=== PATIENT | female | born 1955 | race Caucasian/White ===

== ENCOUNTER 2019-09-06 11:00 | Outpatient (RCR) | payer OTHER, SELFPAY ==
--- NOTE | 2019-06-27 12:24 | PTOPEVAL ---
INITIAL PHYSICAL THERAPY EVALUATION and PLAN OF CARE Thank you for referring Mary Reis to [facility]. She will be seen 2x/wk x 4 wks. Please review, sign, date and return this plan of care SUSANA. I agree with and certify that the following plan of care is medically necessary. Referring Physician Date Admitting Provider: Attending Provider: Palma Canela, BEAN ROASTER Referring Provider: *PT Outpatient Evaluation Start: 06/27/19 11:07 Freq: Status: Active Protocol: Document 06/27/19 11:05 LILIAN (Rec: 06/27/19 12:23 LILIAN [id number]) Therapy Assessment Status Assessment Status Assessment Status Evaluation Outpatient Past Medical History Past Medical History Source of Past Medical History Patient Neurological History Hx Neurological Disorders No Significant History Cardiovascular History Hx Hypercholesterolemia Yes Hx Hypertension Yes Respiratory History Hx Respiratory Disorders No Significant History Gastrointestinal History Hx Gastrointestinal Disorders No Significant History Genitourinary History Hx Genitourinary Disorders No Significant History Musculoskeletal History Hx Other Musculoskeletal Disorders Yes: Bilat adhesive capsulitis Evaluation Information Problem Diagnosis cervical radiculopathy Onset end of May Subjective Information Helping older daughter move - Query Text:As Reported By Patient/ packing, moving boxes Moving Family gear shift in car will result in pain, moving arm out to side - difficult to do Will feel pulling sensation felt in neck. Sleeping - unable to get comfortable toss/turns Ice on front on shoulder, ice on back of shoulder Morning - the worse - R arm feels like weight, increase difficulty moving R arm Prior Level of Function Activity Level (Last 3 Months) Hand Dominance Right Medications Home Meds (Include: OTC, RX, Vitamins, CoQ10, vitamin D, lisinopril, Herbals, Dose, Route,and Frequency) gemtibrozil Query Text:Home Med Entries Will No Longer Recall From Past Visits. Home Meds Must Be Re-entered With Each Visit. Home Setting Home Type House,Multiple Levels Environmental Barriers Stairs, Greater than 4 Living Situation With Spouse Mobility Assistive Devices (Used Last 3 None Months) Comments Additional Prior Level of Function likes to stay active, helps Comments out with her parents Pain Assessment Timing
--- NOTE | 2019-07-19 17:12 | PTOPEVAL ---
PHYSICAL THERAPY RE-EVALUATION AND PROGRESS NOTE, UPDATED PLAN OF CARE Thank you for referring Mary Reis to [facility]. She has been seen x 8 visits. Further PT is recommended for further achievement of Misael's goals. Please review, sign, date and return this plan of care SUSANA. I agree with and certify that the following plan of care is medically necessary. Referring Physician Date Admitting Provider: Attending Provider: Palma Canela, DISTRICT PLANT ENGINEER Referring Provider: *PT Outpatient Evaluation Start: 06/27/19 11:07 Freq: Status: Active Protocol: Document 07/19/19 11:05 LILIAN (Rec: 07/19/19 17:12 LILIAN [email or web address]) Therapy Assessment Status Assessment Status Assessment Status Re-evaluation Evaluation Information Problem Subjective Information Misael reports less neck Query Text:As Reported By Patient/ discomfort - occasional strain Family sensation as well as tightness present. Most of her c/o's are at R shoulder/ upper quadrant region. Sleeping is still difficult - unable to maintain comfortable position - but has improved ~ 30%. Able to move gear shift in car now without discomfort, still cautious with using R UE and manuever tea mug like she is acustomed to doing. Pain Assessment Timing of Pain Assessment Timing of Pain Assessment Assessment Pain Scale Pain Scale Used Numeric (1 - 10) Self Report Pain Assessment Right Upper Shoulder(s) Reported Pain Level 2 Lowest Pain Intensity 1 Greatest Pain Intensity 7 Additional Pain Comments neck pain - best 0 worse 4 now 0 Pain Score Pain Score 2: Self Report Upper Extremity Range of Motion Scapular/ Shoulder Range of Motion Right Shoulder Flexion - Active 158 Shoulder Extension - Active 54 Shoulder Abduction - Active 131 Shoulder Medial Rotation - Active 45 Shoulder Medial Rotation - Active R buttock area Query Text:Reach Behind the Back Shoulder Lateral Rotation - Active 60 Shoulder Lateral Rotation - Active C6,7 region Query Text:Reach Behind the Head Scapular/Shoulder Range of Motion ER in neutral - 80 Comments Upper Extremity Muscle Strength Testing Scapular/Shoulder Right Shoulder Flexion Strength 4 Good Shoulder Extension Strength 4+ Good + Shoulder Abduction Strength 4- Good - Shoulder Medial Rotation Strength 4+ Good + Shoulder Lateral Rotation Strength 4 Good Shoulder Strength Comments
--- NOTE | 2019-08-16 16:28 | PTOPEVAL ---
PHYSICAL THERAPY RE-EVALUATION and UPDATED PLAN OF CARE Thank you for referring Mary Reis to [facility]. Continue to follow in PT 2x/wk x 4 wks. Please review, sign, date and return this plan of care SUSANA. I agree with and certify that the following plan of care is medically necessary. Referring Physician Date Admitting Provider: Attending Provider: Palma Canela, AUTOMOBILE SERVICE STATION MANAGER Referring Provider: *PT Outpatient Evaluation Start: 06/27/19 11:07 Freq: Status: Active Protocol: Document 08/16/19 11:07 LILIAN (Rec: 08/16/19 16:28 LILIAN [email or web address]) Therapy Assessment Status Assessment Status Assessment Status Re-evaluation Evaluation Information Problem Subjective Information Misael reports that for the Query Text:As Reported By Patient/ last few days R shoulder/arm Family is feeling heavy. Only able to lie on R side for ~ 10 min. She feels that she tosses and turns throughout the night . She has been able to stay in bed - but this morning - early - she needed to get out of bed and get ice on her shoulder. Protraction motion relieves some of her R shoulder discomfort. Pain Assessment Timing of Pain Assessment Timing of Pain Assessment Assessment Pain Scale Pain Scale Used Numeric (1 - 10) Self Report Pain Assessment Right Upper Shoulder(s) Reported Pain Level 4 Pain Description Heavy Pain Frequency Chronic Lowest Pain Intensity 2 Greatest Pain Intensity 9 Additional Pain Comments only able to lie on R side for ~ 10 min before has to reposition Pain Score Pain Score 4: Self Report Upper Extremity Range of Motion Scapular/ Shoulder Range of Motion Right Shoulder Flexion - Active 145 Shoulder Extension - Active 50 Shoulder Abduction - Active 105 Shoulder Medial Rotation - Active 37 Shoulder Medial Rotation - Active R buttock area Query Text:Reach Behind the Back Shoulder Lateral Rotation - Active 65 Shoulder Lateral Rotation - Active C6,7 region Query Text:Reach Behind the Head Scapular/Shoulder Range of Motion ER in neutral - 60 Comments Palpation Assessment Palpation Palpation Further increase with cervical spine P-A mobility - level of least motion - T1,C7,6 R upper quadrant - mild
--- NOTE | 2019-09-06 13:04 | PTOPEVAL ---
Thank you for referring Mary Reis to [facility]. Please review, sign, date and return this plan of care SUSANA. I agree with and certify that the following plan of care is medically necessary. Referring Physician Date Admitting Provider: Attending Provider: Palma Canela, BLASTER HELPER Referring Provider: *PT Outpatient Evaluation Start: 06/27/19 11:07 Freq: Status: Active Protocol: Document 09/06/19 10:55 LILIAN (Rec: 09/06/19 13:04 LILIAN [email or web address]) Therapy Assessment Status Assessment Status Assessment Status Discharge Evaluation Information Problem Subjective Information Misael reports that sleeping Query Text:As Reported By Patient/ has been difficult again - Family unable to stay in bed past 3 a .m. - needs to get up and put ice on shoulders. Lately - not having as much heaviness with R shoulder - but will still have that sensation. Will get a catching sensation at times. Still unable to lie on either side for any length of time - especially on the R side. Pain Assessment Timing of Pain Assessment Timing of Pain Assessment Assessment Pain Scale Pain Scale Used Numeric (1 - 10) Self Report Pain Assessment Right Upper Shoulder(s) Reported Pain Level 1 Lowest Pain Intensity 1 Greatest Pain Intensity 8 Pain Score Pain Score 1: Self Report Upper Extremity Range of Motion Scapular/ Shoulder Range of Motion Right Shoulder Flexion - Active 130 Shoulder Extension - Active 50 Shoulder Abduction - Active 108 Shoulder Medial Rotation - Active 25 Shoulder Medial Rotation - Active R buttock area Query Text:Reach Behind the Back Shoulder Lateral Rotation - Active 65 Shoulder Lateral Rotation - Active C6,7 region Query Text:Reach Behind the Head Scapular/Shoulder Range of Motion ER in neutral - 74 Comments Palpation Assessment Palpation Palpation R g-h jt tightness remains - posterior and inferior capsule - harder end feel with IR this date, softer end feel with ER, increase pectoralis tightness remains limiting abduction - in saggital plane Continues to gain with cervical segmental mobility passively as well as cervical
--- NOTE | 2019-09-06 13:06 | PTOPEVAL ---
PHYSICAL THERAPY DISCHARGE SUMMARY Thank you for referring Mary Reis to [facility]. Misael has been seen x 19 visits in PT. Her original cervical spine symptoms/dysfunction have been resolved, but R g-h jt dysfunction continues. Referring Misael back to PCP for further diagnostic work up and possible referral to Ortho MD. I agree with Misael's d/c from PT at this time. Referring Physician Date Admitting Provider: Attending Provider: Palma Canela, MARY Referring Provider: *PT Outpatient Evaluation Start: 06/27/19 11:07 Freq: Status: Active Protocol: Document 09/06/19 10:55 LILIAN (Rec: 09/06/19 13:04 LILIAN [email or web address]) Therapy Assessment Status Assessment Status Assessment Status Discharge Evaluation Information Problem Subjective Information Misael reports that sleeping Query Text:As Reported By Patient/ has been difficult again - Family unable to stay in bed past 3 a .m. - needs to get up and put ice on shoulders. Lately - not having as much heaviness with R shoulder - but will still have that sensation. Will get a catching sensation at times. Still unable to lie on either side for any length of time - especially on the R side. Pain Assessment Timing of Pain Assessment Timing of Pain Assessment Assessment Pain Scale Pain Scale Used Numeric (1 - 10) Self Report Pain Assessment Right Upper Shoulder(s) Reported Pain Level 1 Lowest Pain Intensity 1 Greatest Pain Intensity 8 Pain Score Pain Score 1: Self Report Upper Extremity Range of Motion Scapular/ Shoulder Range of Motion Right Shoulder Flexion - Active 130 Shoulder Extension - Active 50 Shoulder Abduction - Active 108 Shoulder Medial Rotation - Active 25 Shoulder Medial Rotation - Active R buttock area Query Text:Reach Behind the Back Shoulder Lateral Rotation - Active 65 Shoulder Lateral Rotation - Active C6,7 region Query Text:Reach Behind the Head Scapular/Shoulder Range of Motion ER in neutral - 74 Comments Palpation Assessment Palpation Palpation R g-h jt tightness remains - posterior and inferior capsule - harder end feel with IR this date, softer end feel with ER, increase pectoralis tightness remains limiting abduction - in saggital plane
== END 2019-09-07 08:27 | disposition home or self-care (01) ==
LOC: ANHPT 11:00
PROVIDERS: PCP Nurse Practitioner Family; Visit Provider Nurse Practitioner Family
DX: M54.12 Radiculopathy, cervical region (principal)
CPT/HCPCS: 97035; 97110; 97140; 97162

== ENCOUNTER 2019-11-19 09:52 | Emergency (ER) | payer MEDICARE, SELFPAY ==
--- NOTE | 2019-11-19 10:13 | ED.DIZZY ---
HPI - Dizziness General Chief Complaint: Dizziness Stated Complaint: dizziness Time Seen by Provider: 11/19/19 10:33 Source: patient and RN notes reviewed Mode of arrival: ambulatory Limitations: no limitations History of Present Illness HPI Narrative: 64-year-old female presents with concern for dizziness. Reports she will experience a period of dizziness when she moves from a sitting to a standing position. She denies room spinning. She denies syncope or near syncope. She denies headache, nausea, vomiting. Reports postnasal drainage, nasal congestion. Reports last week she had abdominal pain. MD elicited complaint: dizziness Related Data Home Medications Medication Instructions Recorded Confirmed gemfibrozil mg 11/19/19 lisinopril 11/19/19 Allergies Allergy/AdvReac Type Severity Reaction Status Date / Time KNDA Allergy Mild Uncoded 07/30/03 16:49 Review of Systems Review of Systems: Narrative: CONSTITUTIONAL: Denies malaise, chills, sweats, or fever. EYES: Denies visual changes, redness, or discharge. ENT: Reports rhinorrhea, congestion. Denies sinus pain, otalgia or sore throat. CARDIOVASCULAR: Denies chest pain, palpitations, or edema. RESPIRATORY: Denies cough or dyspnea. GASTROINTESTINAL: Denies current abdominal pain, nausea, vomiting, diarrhea, bloody, or mucous stools. GENITOURINARY: Denies dysuria or hematuria. SKIN: Denies rash or itching. MUSCULOSKELETAL: Denies back pain, joint pain, or myalgia. NEUROLOGIC: Denies numbness, weakness, or headache. Reports dizziness PSYCHIATRIC: Denies anxiety or depression. All systems reviewed & are unremarkable except as noted in HPI and below PMFSH Social History Social History Smoking end date: 03/21/95 Alcohol intake: current Comments At time of signature, agree with nursing past medical, surgical, social and family history. There is no relevant family history pertinent to the presenting complaint Exam Narrative: Exam Narrative: GENERAL: Well-appearing, well-nourished, and in no acute distress. HEAD: Normocephalic, atraumatic. EYES: PERRLA, conjunctivae clear, and EOMI. No nystagmus. ENT: Nares clear, turbinates erythematous, clear drainage. Mucous membranes moist. Right TM pearly rankin with sharp light reflex, left TM dull with effusion; no tragal tenderness. Oropharynx without erythema or lesions. Tonsils not enlarged and without exudate. NECK: Supple. No lymphadenopathy. No jugular venous distension, thyromegaly, or carotid bruits. Carotids were easily palpable bilaterally. CHEST: No respiratory distress. Clear to auscultation. No bony deformities, no asymmetry. Speaks in full sentences. HEART: Regular rate and rhythm. No murmur heard. Normal peripheral pulses. EXTREMITIES: Normal range of motion. No edema. Normal strength and sensation. SKIN: Warm, dry, no rash. NEURO: Alert and oriented x3. No focal deficits. Cranial nerves II through XII grossly intact. Rothbury-Hallpike test negative for vertigo PSYCH: Normal mood and affect Course Course Emergency Course: Patient is aware of diagnosis, understands and agrees to treatment plan. Anticipatory guidance given. Patient agrees to follow-up as directed and is aware of reasons to seek care at the emergency department. Portions of this record may have been created with voice recognition software Reevaluation(s) Reevaluation #1: Discussed with patient findings of orthostatic hypotension and offered further evaluation in the emergency department. Patient reports at this time she wishes to follow-up with her primary care doctor on Tuesday and does not wish to go to the emergency room. Patient understands reasons to seek care in the emergency department if symptoms change before she can see her primary care doctor. Date: 11/19/19 Time: 11:05 Vital Signs Vital signs: Vital Signs Temperature 99.4 F 11/19/19 10:21 Pulse Rate 95 11/19/19 10:21 Respiratory Rate 16 11/19/19 10:21 Blood Pressure 10
[2019-11-19 10:21] VITALS: BP 108/69; PULSE 95; RESP 16; TEMP 37.4; O2SAT 98
[2019-11-19 10:42] VITALS: BP 111/73; PULSE 86
[2019-11-19 10:44] VITALS: BP 107/71; PULSE 100
[2019-11-19 10:46] VITALS: BP 103/82; PULSE 103
== END 2019-11-19 11:11 | disposition home or self-care (01) ==
PROVIDERS: Emergency Provider Nurse Practitioner
DX: I95.1 Orthostatic hypotension (principal); E78.00 Pure hypercholesterolemia, unspecified; I10 Essential (primary) hypertension
CPT/HCPCS: 99213; G0463

== ENCOUNTER 2021-02-24 08:34 | Emergency (ER) | payer MEDICARE, SELFPAY ==
[2021-02-24] VITALS (32 sets, daily range): BP systolic 105–140; BP diastolic 66–94; PULSE 58–96; RESP 12–21; TEMP 36.3; O2SAT 96–100
--- NOTE | ~2021-02-24 | CT_ITS ---
EXAMINATION: CT brain wo con DATE: 02/24/2021 11:44 INDICATION: Altered mental status TECHNIQUE: Computed tomography (CT) of the head was performed without intravenous contrast. Sagittal and coronal reconstructions were performed. The mA was adjusted according to patient size. Iterative reconstruction technique was employed. The dose-length product was 605.33 mGy-cm. COMPARISON: None FINDINGS: No acute intracranial hemorrhage, acute infarction or abnormal extra axial fluid collection. Ventricl es are normal and symmetric. No mass/mass effect. Mild mucosal thickening in the right maxillary and left ethmoid sinuses. The orbits and mastoid air cells are normal. IMPRESSION: 1. No acute intracranial process. Reviewed, dictated and finalized at location B. OND MILL OPERATOR
--- NOTE | 2021-02-24 09:03 | ECG_ITS ---
Measurements Intervals [place] Rate: 69 P: 36 AR: 208 QRS: -34 QRSD: 114 T: -28 QT: 400 QTc: 429 Interpretive Statements SINUS RHYTHM LEFT AXIS DEVIATION INTRAVENTRICULAR CONDUCTION DELAY LEFT VENTRICULAR HYPERTROPHY AND ST-T CHANGE CANNOT RULE OUT SEPTAL INFARCT, AGE INDETERMINATE BORDERLINE ST-T WAVE ABNORMALITY- ANTEROLAT/INF LEADS BASELINE ARTIFACT- I, II, III, AVR, AVL, AVF, V1, V3-V6 ABNORMAL ECG Electronically Signed On 02-24-2021 9:36:45 REGULATORY AFFAIRS DIRECTOR by Paul Bundy D.O.
[2021-02-24 09:27] LABS: Basophils Percent Auto 0.6 % (0.2-1.2); Eosinophils Absolute Auto 0.1 K/mm3 (0-0.3); Eosinophils Percent Auto 2.6 % (0-4.4); Hematocrit 41.7 % (37.0-47.0); Hemoglobin 14.5 g/dL (12.0-15.0); Immature Granulocyte Absolute 0.01 K/mm3 (0.00-0.031); Immature Granulocyte Percent A 0.3 % (0-0.5); Lymphocytes Percent Auto 40.7 % (18.3-44.2); Mean Corpuscular HGB Conc 34.8 g/dl (32-36); Mean Corpuscular Hemoglobin 31.5 pg (26-34); Mean Corpuscular Volume 90.7 fl (80-100); Mean Platelet Volume 9.8 fl (7.4-10.4); Monocytes Absolute Auto 0.4 K/mm3 (0.1-0.6); Monocytes Percent Auto 10.2 % (2.6-8.5); Neutrophils Absolute Auto 1.6 K/mm3 (1.3-6.7); Neutrophils Percent Auto 45.6 % (45.5-73.1); Platelet Count Result 163 k/mm3 (150-375); Red Cell Distribution Width 12.6 % (11.5-14.5); White Blood Count 3.4 K/mm3 (4.5-10.0)
[2021-02-24 09:39] LABS: Alanine Aminotransferase 59 U/L (4-35); Albumin Level 4.8 g/dL (3.5-5.1); Alkaline Phosphatase 114 U/L (38-126); Anion Gap 10 mmol/L (8-16); Aspartate Amino Transferase 45 U/L (14-36); Bilirubin,Total 0.7 mg/dL (0.2-1.3); Blood Urea Nitrogen 14 mg/dL (7-17); Calcium 9.3 mg/dL (8.4-10.2); Carbon Dioxide 24 mmol/L (22-30); Chloride 102 mmol/L (98-107); Estimated CRCL calculation 105 ml/min; Estimated Glomerular Filt Rate > 60; Glucose 101 mg/dL (65-110); Potassium 3.8 mmol/L (3.4-5.0); Sodium 136 mmol/L (137-145)
[2021-02-24 09:58] LABS: Atypical Lymphocytes Present; Platelet Estimate Adequate (Adequate)
--- NOTE | 2021-02-24 11:18 | ED.DIZZY ---
HPI - Dizziness General Chief Complaint: Dizziness Stated Complaint: very dizzness Time Seen by Provider: 02/24/21 09:17 Source: patient Mode of arrival: ambulatory Limitations: no limitations History of Present Illness HPI Narrative: 65-year-old female She is here because of a approximately 3-day history of feeling kind of dizzy and/or fuzzy and having a little trouble recalling things, although right now she feels perfectly fine The last time she experienced this was when she woke up at 3 AM this morning She reports she had a routine visit with her PCP within the last couple weeks and there was no problems found at that time She does not have anything else going on and no cough no shortness of breath no nausea or vomiting no urinary symptoms Her was recently hospitalized at [facility] to get a pacemaker and she mentions that this has been stressful and she has been having some anxieties and maybe a little bit of sleep problems due to that Related Data Home Medications Medication Instructions Recorded Confirmed gemfibrozil mg 11/19/19 lisinopril PO 11/19/19 donepezil 10 mg PO HS 02/24/21 furosemide 40 mg PO DAILY 02/24/21 memantine 5 mg PO BID 02/24/21 mirtazapine 15 mg PO DAILY 02/24/21 ondansetron PO 02/24/21 sertraline 50 mg PO DAILY 02/24/21 spironolactone 50 mg PO DAILY 02/24/21 Allergies Allergy/AdvReac Type Severity Reaction Status Date / Time No Known Allergies Allergy Verified 02/24/21 09:13 Review of Systems Review of Systems: All systems reviewed & are unremarkable except as noted in HPI and below Constitutional: Constitutional: Reports no additional constitutional complaints, Denies chills, Reports fatigue, Denies fever(s) and Denies headache(s) Eyes: Eyes: Reports no additional eye complaints and Denies change in vision ENT: Denies headache(s) and Denies sore throat Cardiovascular: Cardiovascular: Denies chest pain and Denies dyspnea Respiratory: Respiratory: Denies cough and Denies dyspnea Gastrointestinal: Gastrointestinal: Denies abdominal pain, Denies diarrhea and Denies vomiting Genitourinary: Genitourinary: Denies urinary frequency and Denies dysuria Musculoskeletal: Musculoskeletal: Denies deformity, Denies arthralgias, Denies joint swelling and Denies numbness Integumentary/Breasts: Skin/Breast: Denies rash and Denies wounds Neurologic: Reports dizziness, Denies headache(s), Denies focal weakness and Denies numbness Psychiatric: Psychiatric: Reports no additional psychiatric complaints and Reports anxiety Endocrine: Endocrine: Reports no additional endocrine complaints Hematologic/Lymphatic: Hematologic/Lymphatic: Reports no additional hematologic/lymphatic complaints Allergic/Immunologic: Allergic/Immunologic: Reports no additional allergic/immunologic complaints [facility] Social History Social History Smoking end date: 03/21/95 Alcohol intake: current Exam Const: General: cooperative, healthy appearing, no acute distress and alert Orientation/consciousness: patient oriented x3 (alert) HENMT: Head: normal to inspection, normocephalic, atraumatic, no contusions and no hematomas Ears: external ears normal General nose exam: no epistaxis Eyes: Conjunctivae: conjunctivae normal Pupils: Equal, round and reactive pupils present EOM: EOMs intact bilaterally Neck: Neck: normal visual inspection, supple and no JVD Resp: Effort & Inspection: normal respiratory effort and not labored Auscultation: clear to auscultation bilaterally, no rales, no rhonchi, no wheezes and other (BS =) Cardio: Rate: regular rate Rhythm: regular rhythm Heart sounds: no murmurs GI: GI Palp: Yes Soft to palpation and No Tenderness to palpation present (GI) Skin: General skin exam: normal color and no rashes or lesions noted Neuro: General: patient oriented x3 (alert) and moves all extremities Speech: normal speech
--- NOTE | 2021-02-24 11:39 | PC.NURSE ---
Pt to CT.
[2021-02-24 12:11] LABS: Add Urine Microscopic? YES; Appearance Urine Clear (Clear); Bilirubin Urine Negative (Negative); Blood Urine Negative (Negative); Color Urine Yellow (Yellow); Glucose Urine UA Negative (Negative); Ketones Urine Negative (Negative); Leukocyte Esterase Ur Trace LEU/UL (Negative); Mucus Urine Rare /lpf; Nitrate Urine Negative (Negative); Protein Urine Negative (Negative); RBC Urine 0-2 /hpf (0-2); Specific Grav Ur 1.021 (1.001-1.035); Squamous Epithelial Cell Urine Moderate /hpf (Few); Urobilinogen Urine Negative mg/dL (<2.0); WBC Urine 0-3 /hpf
[2021-02-24 12:40] LABS: Free T4 Free Thyroxine 1.22 ng/mL (0.78-2.19)
--- NOTE | 2021-02-24 13:26 | PC.NURSE ---
Dr. Mays at bedside to update pt on results and treatment plan.
== END 2021-02-24 14:07 | disposition home or self-care (01) ==
PROVIDERS: Emergency Provider Emergency Medicine
DX: R42 Dizziness and giddiness (principal); F43.9 Reaction to severe stress, unspecified; I45.9 Conduction disorder, unspecified; I51.7 Cardiomegaly; R94.31 Abnormal electrocardiogram [ECG] [EKG]
CPT/HCPCS: 36415; 70450; 80053; 81001; 84439; 84443; 85025; 93005; 99284

== ENCOUNTER 2021-07-17 14:25 | Emergency (ER) | payer MEDICARE, SELFPAY ==
--- NOTE | 2021-07-17 14:28 | ED.ABDPAIN ---
HPI - Abdominal Pain General Chief Complaint: Abdominal Pain Stated Complaint: abd pain Time Seen by Provider: 07/17/21 14:29 Source: patient Mode of arrival: ambulatory Limitations: no limitations History of Present Illness HPI narrative: Ms. Lombardi is a 65-year-old female patient presenting to the clinic today with complaints of left lower abdominal pain x3 to 4 days. She is passing gas appropriately. She denies any fever, chills, nausea, vomiting, diarrhea, constipation, or blood in stool. Last bowel movement was prior to arrival and was normal per patient. States that this pain comes and go and it is a dull ache in the left lower abdomen nonradiating. Pain is currently resolved at the time of visit however she was having pain when she was coming into the [facility]. Family member suggested that she may have a kidney stone. MD elicited complaint: abdominal pain Related Data Home Medications Medication Instructions Recorded Confirmed gemfibrozil 600 mg PO DIRECTED 11/19/19 07/17/21 lisinopril 10 mg PO DAILY 11/19/19 07/17/21 memantine 5 mg PO BID 02/24/21 07/17/21 mirtazapine 15 mg PO DAILY 02/24/21 07/17/21 sertraline 50 mg PO DAILY 02/24/21 07/17/21 spironolactone 50 mg PO DAILY 02/24/21 07/17/21 donepezil 5 mg PO DAILY 07/17/21 07/17/21 escitalopram oxalate 10 mg PO DAILY 07/17/21 07/17/21 ezetimibe 10 mg PO DAILY 07/17/21 07/17/21 Allergies Allergy/AdvReac Type Severity Reaction Status Date / Time No Known Allergies Allergy Verified 07/17/21 14:28 Review of Systems Review of Systems: Pertinent positives per HPI. Patient denies any fever, chills, rash, headache, visual changes, dizziness, cough, runny nose, sore throat, shortness of breath, chest pain, palpitations, nausea, vomiting, diarrhea, constipation, or any urinary issues. PENDING SALE TO [facility] Social History Social History Smoking end date: 03/21/95 Alcohol intake: current Comments At the time of my signature, I reviewed and agree with the nursing past medical, surgical, social, and family history. There is no relevant family history pertinent to the patient complaint. Exam Narrative: General: Well-developed, well nourished, in no apparent distress. Head: Normocephalic, atraumatic. Cardio: Regular rate and rhythm, s1 and s2 normal, no murmur appreciated. Resp: Clear to auscultation bilaterally, no rhonchi, rales, wheezing or rubs. Abdomen: Soft, pliable, bowel sounds present in all quadrants, non-tender to palpation, no organomegly, no CVAT tenderness. Course Course Emergency Course: Portions of this record may have been created with voice recognition software. Level of Care: Express Care Visit Vital Signs Vital signs: Vital signs reviewed MDM - Abdominal Pain MDM Narrative Medical decision making narrative: At the time of visit patient is resting comfortably on the exam table. She reports that her pain has resolved. Pain is intermittent and is dull ache in quality. Pain does not radiate anywhere. Urinalysis is positive for trace of blood and leukocytes as well as 1+ protein. I will go ahead and treat her as a acute cystitis with hematuria and give her a course of Macrobid. I do not feel that an x-ray is necessary at this time as she is nontender to palpation of the abdomen. We will have her follow-up with her PCP this week and a urine culture was sent to lab. Discharge Plan Discharge Clinical Impression: Abdominal pain, LLQ (left lower quadrant) Acute cystitis Qualifiers: Hematuria presence: with hematuria Qualified Code(s): N30.01 - Acute cystitis with hematuria Patient Disposition: Home, Self-Care Condition: Stable Instructions: Antibiotic Form, Abdominal Pain (ED), Urinary Tract Infection in Older Adults (ED) Additional Instructions: Increase fluids and stay well hydrated Tylenol/Motrin as needed for pain or fever Wipe front to back. May use wet wipes. Av
[2021-07-17 14:32] VITALS: BP 100/69; PULSE 79; RESP 16; TEMP 36.1; O2SAT 99
[2021-07-17 14:34] VITALS: BP 100/69; PULSE 79; RESP 16; TEMP 36.1; O2SAT 99
== END 2021-07-17 15:04 | disposition home or self-care (01) ==
PROVIDERS: Emergency Provider Nurse Practitioner Family
DX: N30.01 Acute cystitis with hematuria (principal); E78.00 Pure hypercholesterolemia, unspecified; I10 Essential (primary) hypertension
CPT/HCPCS: 81003; 87086; 99213; G0463

== ENCOUNTER 2021-09-28 11:03 | Emergency (ER) | payer MEDICARE, SELFPAY ==
[2021-09-28 11:12] VITALS: BP 103/69; PULSE 77; RESP 16; TEMP 36.7; O2SAT 98
[2021-09-28 11:15] VITALS: BP 103/69; PULSE 77; RESP 16; TEMP 36.7; O2SAT 98
--- NOTE | 2021-09-28 11:24 | ED.FEMALEGU ---
HPI - Female Genitourinary General Chief complaint: Urogenital-Female Stated complaint: uti Time Seen by Provider: 09/28/21 11:26 Source: patient and RN notes reviewed Mode of arrival: ambulatory Limitations: no limitations History of Present Illness HPI Narrative: 66 y/o female presented for c/o low abdominal cramping for about 3 days with stronger urine odor. Pain is intermittent and up to 6/10 at times. Denies associated nausea, vomiting, diarrhea, constipation, flank pain, hematuria, dysuria, fevers or chills. Last UTI 06/2021. Related Data Home Medications Medication Instructions Recorded Confirmed gemfibrozil 600 mg tablet 600 mg PO DIRECTED 11/19/19 09/28/21 lisinopril 10 mg tablet 10 mg PO DAILY 11/19/19 09/28/21 donepezil 5 mg tablet 5 mg PO DAILY 07/17/21 09/28/21 escitalopram oxalate 10 mg tablet 10 mg PO DAILY 07/17/21 09/28/21 ezetimibe 10 mg tablet 10 mg PO DAILY 07/17/21 09/28/21 Allergies Allergy/AdvReac Type Severity Reaction Status Date / Time No Known Allergies Allergy Verified 09/28/21 11:09 Review of Systems Review of Systems: CONSTITUTIONAL: Denies body aches, fever, chills, or sweats. CARDIOVASCULAR: Denies chest pain, palpitations, or edema. RESPIRATORY: Denies cough or dyspnea. GASTROINTESTINAL: Denies nausea, vomiting, or diarrhea. GENITOURINARY: Reports dysuria, frequency, urgency, hematuria, flank pain SKIN: Denies rash, itching, or wounds. MUSCULOSKELETAL: Denies back pain or myalgia. [facility] Social History Social History Smoking end date: 03/21/95 Alcohol intake: current Comments At time of signature, I have reviewed and agree with nursing past medical, surgical, social and family history unless otherwise noted. Please see nursing chart for further information. There is no relevant family history pertinent to the presenting complaint Exam Narrative: GENERAL: Well-appearing ENT: Mucous membranes pink and moist. CHEST: Clear to auscultation. HEART: Regular rate and rhythm. ABDOMEN: Soft, nontender, nondistended, normal active bowel sounds. No CVA tenderness SKIN: Warm, dry, no rash. NEURO: No focal deficits. Alert and oriented x3. Gait steady. PSYCH: Normal affect. Course Course Emergency Course: Patient is aware of diagnosis, understands and agrees to treatment plan. Anticipatory guidance given. Patient agrees to follow-up as directed and is aware of reasons to seek care at the emergency department. Portions of this record may have been created with voice recognition software Level of Care: Express Care Visit Vital Signs Vital signs: Vital Signs Temperature 98.0 F 09/28/21 11:12 Pulse Rate 77 09/28/21 11:12 Respiratory Rate 16 09/28/21 11:12 Blood Pressure 103/69 09/28/21 11:12 Pulse Oximetry 98 09/28/21 11:12 Oxygen Delivery Room Air 09/28/21 11:12 Temperature 98.0 F 09/28/21 11:15 Pulse Rate 77 09/28/21 11:15 Respiratory Rate 16 09/28/21 11:15 Blood Pressure 103/69 09/28/21 11:15 Pulse Oximetry 98 09/28/21 11:15 Oxygen Delivery Room Air 09/28/21 11:15 Reviewed MDM - Female Genitourinary MDM Narrative Medical decision making narrative: will treat for uti at this time and send culture. She is advised to monitor sx and go to the ER for worsening sx or concerns Differential Diagnosis Differential diagnosis: Likely urinary tract infection, cystitis and other (diverticulitis, ileus, constipation, gastroenteritis) Lab Data Labs: Urine Glucose Negative Reference Range: Negative Urine Bilirubin Negative Reference Range: Negative Urine Ketone Negative Reference Range: Negative Urine Specific [place] 1.030
== END 2021-09-28 11:40 | disposition home or self-care (01) ==
PROVIDERS: Emergency Provider Nurse Practitioner Family
DX: N39.0 Urinary tract infection, site not specified (principal); E78.00 Pure hypercholesterolemia, unspecified; I10 Essential (primary) hypertension
CPT/HCPCS: 81003; 87086; 87088; 99213; G0463

== ENCOUNTER 2021-11-13 11:59 | Emergency (ER) | payer MEDICARE, SELFPAY ==
[2021-11-13 12:20] VITALS: BP 96/69; PULSE 80; RESP 16; TEMP 37.4; O2SAT 98
--- NOTE | 2021-11-13 12:44 | ED.FEMALEGU ---
HPI - Female Genitourinary General Chief complaint: Urogenital-Female Stated complaint: UTI Time Seen by Provider: 11/13/21 12:44 History of Present Illness HPI Narrative: Purnima Fraser is a 66 yo female with a UTI who is here with left lower abdominal pains she said it states like she has urinary tract infection. She has no fever no nausea vomiting diarrhea but states she has pain in the left suprapubic area and is going on vacation does not want to influence their vacation Related Data Home Medications Medication Instructions Recorded Confirmed gemfibrozil 600 mg tablet 600 mg PO DIRECTED 11/19/19 09/28/21 lisinopril 10 mg tablet 10 mg PO DAILY 11/19/19 09/28/21 donepezil 5 mg tablet 5 mg PO DAILY 07/17/21 09/28/21 escitalopram oxalate 10 mg tablet 10 mg PO DAILY 07/17/21 09/28/21 ezetimibe 10 mg tablet 10 mg PO DAILY 07/17/21 09/28/21 Allergies Allergy/AdvReac Type Severity Reaction Status Date / Time No Known Allergies Allergy Verified 11/13/21 12:26 Review of Systems Review of Systems: CONSTITUTIONAL: Denies fever, chills, sweats. EYES: Denies visual changes, redness, discharge. ENT: Denies rhinorrhea, congestion, sore throat, otalgia. CARDIOVASCULAR: Denies chest pain, palpitations, edema. RESPIRATORY: Denies dyspnea, wheezing, cough GASTROINTESTINAL: Denies abdominal pain, nausea, vomiting, diarrhea. GENITOURINARY: Denies dysuria, hematuria, abnormal discharge SKIN: Denies rash or itching. NEUROLOGIC: Denies numbness, or focal weakness. PSYCHIATRIC: Denies anxiety or depression. Left suprapubic pain PMFSH Past Medical History Medical History UTI (urinary tract infection) Social History Social History Smoking end date: 03/21/95 Alcohol intake: current Comments At time of signature, I agree with nursing past medical, surgical, social and family history. There is no relevant family history pertinent to the presenting complaint. Exam Narrative: GENERAL: This is a well-nourished, well-developed patient, in mild distress. HEAD: normocephalic, atraumatic. EYES: Sclera clear/white. Vision is grossly intact. EARS: External ears normal, Hearing grossly intact. NOSE: External nose normal without nasal discharge, nares without redness, no rhinorrhea. THROAT: Mucous membrane moist CARDIOVASCULAR: Regular rate and rhythm without murmurs, gallops, or rubs. RESPIRATORY: Clear to auscultation. Breath sounds equal bilaterally. No wheezes, rales, or rhonchi. GASTROINTESTINAL: Abdomen soft, non-tender, SKIN: warm, intact with no suspicious lesions or rash, good texture and turgor. NEURO: awake, alert, and oriented to person, place and time. There were no obvious focal neurologic abnormalities. Steady gait EXTREMITIES: Normal range of motion. BACK: Nontender without deformity Course Course Emergency Course: Mild suprapubic pain UA shows 1+ leukocytes Started on Keflex 500 mg 1 twice daily x5 days Level of Care: Express Care Visit Vital Signs Vital signs: Vital Signs Temperature 99.4 F 11/13/21 12:20 Pulse Rate 80 11/13/21 12:20 Respiratory Rate 16 11/13/21 12:20 Blood Pressure 96/69 L 11/13/21 12:20 Pulse Oximetry 98 11/13/21 12:20 Oxygen Delivery Room Air 11/13/21 12:20 Temperature 99.4 F 11/13/21 12:20 Pulse Rate 80 11/13/21 12:20 Respiratory Rate 16 11/13/21 12:20 Blood Pressure 96/69 L 11/13/21 12:20 Pulse Oximetry 98 11/13/21 12:20 Oxygen Delivery Room Air 11/13/21 12:20 MDM - Female Genitourinary Differential Diagnosis Differential diagnosis: Likely urinary tract infection, cystitis and other Lab Data Labs: Urine Glucose Negative Reference Range: Negative Urine Bilirubin Negative Reference Range: Neg
== END 2021-11-13 12:50 | disposition home or self-care (01) ==
PROVIDERS: Emergency Provider Nurse Practitioner
DX: N30.90 Cystitis, unspecified without hematuria (principal); Z87.891 Personal history of nicotine dependence
CPT/HCPCS: 81003; 87086; 99213; G0463

== ENCOUNTER 2022-11-13 13:56 | Emergency (ER) | payer MEDICARE, SELFPAY ==
[2022-11-13 14:06] VITALS: BP 137/79; PULSE 93; RESP 16; TEMP 36.6; O2SAT 99
--- NOTE | 2022-11-13 14:14 | ED.EYEPROB ---
HPI - Eye Problem General Chief complaint: Eye Problems Stated complaint: right eye red Time Seen by Provider: 11/13/22 14:19 Source: patient Mode of arrival: ambulatory Limitations: no limitations History of Present Illness HPI Narrative: 59-year-old female presented for complaint of right eye redness and drainage, onset 2 days. Denies sick contacts. denies injury or trauma. No treatment prior to arrival. Denies vision changes, photophobia, eye pain or dizziness. MD chief complaint: eye pain Related Data Home Medications Medication Instructions Recorded Confirmed lisinopril 10 mg tablet 10 mg PO DAILY 11/19/19 11/13/22 escitalopram oxalate 10 mg tablet 10 mg PO DAILY 07/17/21 11/13/22 ezetimibe 10 mg tablet 10 mg PO DAILY 07/17/21 11/13/22 Allergies Allergy/AdvReac Type Severity Reaction Status Date / Time No Known Allergies Allergy Verified 11/13/22 13:58 Review of Systems Review of Systems: CONSTITUTIONAL: Denies body aches, fever, chills EYES:Endorses Redness and drainage to right eye; denies FB sensation, photophobia, visual changes ENT: Denies rhinorrhea, congestion, sore throat, or otalgia. CARDIOVASCULAR: Denies chest pain, palpitations RESPIRATORY: Denies cough or dyspnea. GASTROINTESTINAL: Denies abdominal pain, nausea, vomiting, or diarrhea. SKIN: Denies rash, itching, or wounds. MUSCULOSKELETAL: Denies back pain, joint pain, or myalgia. NEUROLOGIC: Denies headache, numbness, tingling, or weakness. All systems reviewed & are unremarkable except as noted in HPI and below PMFSH Past Medical History Medical History UTI (urinary tract infection) Social History Social History Smoking end date: 03/21/95 Alcohol intake: current Comments At time of signature, I have reviewed and agree with nursing past medical, surgical, social and family history unless otherwise noted. Please see nursing chart for further information. There is no relevant family history pertinent to the presenting complaint Exam Narrative: GENERAL: Well-appearing HEAD: Normocephalic, atraumatic. EYES: right conjunctival injection, large amount purulent drainage; mild eye lid swelling; PERRLA EOMI. Lid eversion shows no foreign body ENT: Mucous membranes pink and moist. No rhinorrhea. TMs normal bilaterally. Throat normal. Uvula midline. CHEST: Clear to auscultation. HEART: Regular rate and rhythm. ABDOMEN: Soft, nontender, nondistended SKIN: Warm, dry, no rash. Normal skin turgor. NEURO: No focal deficits. Alert and oriented x3 PSYCH: Normal affect. Course Course Emergency Course: Patient is aware of diagnosis, understands and agrees to treatment plan. Anticipatory guidance given. Patient agrees to follow-up as directed and is aware of reasons to seek care at the emergency department. Portions of this record may have been created with voice recognition software Level of Care: Express Care Visit Vital Signs Vital signs: Vital Signs Temperature 97.8 F 11/13/22 14:06 Pulse Rate 93 11/13/22 14:06 Respiratory Rate 16 11/13/22 14:06 Blood Pressure 137/79 11/13/22 14:06 Pulse Oximetry 99 11/13/22 14:06 Oxygen Delivery Room Air 11/13/22 14:06 Temperature 97.8 F 11/13/22 14:06 Pulse Rate 93 11/13/22 14:06 Respiratory Rate 16 11/13/22 14:06 Blood Pressure 137/79 11/13/22 14:06 Pulse Oximetry 99 11/13/22 14:06 Oxygen Delivery Room Air 11/13/22 14:06 MDM - Eye Problem MDM Narrative Medical decision making narrative: Discussed physical exam findings consistent with right bacterial conjunctivitis. Advised supportive measures and signs/symptoms to go to the ER. Pt is appropriate for outpt treatment and f/u. Differential Diagnosis Differential diagnosis: Likely corneal abrasion, conjunctivitis, acute iritis, periorbital cellulitis, funez
== END 2022-11-13 14:33 | disposition home or self-care (01) ==
PROVIDERS: Emergency Provider Nurse Practitioner Family; PCP Nurse Practitioner Family
DX: H10.9 Unspecified conjunctivitis (principal); Z87.891 Personal history of nicotine dependence
CPT/HCPCS: 99213; G0463

== ENCOUNTER → 2022-11-26 10:34 | Outpatient (CLI) | payer MEDICARE, SELFPAY ==
--- NOTE | ~2022-11-26 | DEXA_ITS ---
Bone Density Report Name: MADHAVI PETERS Age: 67 Sex: Female Ethnicity: White Date of : 1955 Indication: postmenopausal; screening for osteoporosis; Referring Provider: DUSTIN, ULI Moore Study: Bone densitometry was performed. Exam Date: November 26, 2022 Accession number: [id number] Bone Density: Region BMD T-score Z-score Classification AP Spine (L1-L4) 0.925 -1.1 0.9 Osteopenia Femoral Neck (Left) 0.838 -0.1 1.6 Normal Total Hip (Left) 0.992 0.4 1.8 Normal Femoral Neck (Right) 0.886 0.3 2.0 Normal Total Hip (Right) 0.981 0.3 1.7 Normal Total Hip Mean 0.987 0.4 1.8 Normal World Health Organization criteria for BMD impression classify patients as: Normal (T-score at or above -1.0), Osteopenia (T-score between -1.0 and -2.5), or Osteoporosis (T-score at or below -2.5). 10-year Fracture Risk(1): Major Osteoporotic Fracture 6.7% Hip Fracture 0.3% Reported Risk Factors: [place] (), Neck BMD=0.838, BMI=36.0 (1) FRAX(R) Version 3.08. Fracture probability calculated for an untreated patient. Fracture probability may be lower if the patient has received treatment. Previous Exams: Region Exam Age BMD T-score BMD Change BMD Change Date g/cm2 vs Baseline vs Previous AP Spine(L1-L4) 11/26/2022 67 0.925 -1.1 -0.080 -0.030 02/21/2012 56 0.956 -0.8 -0.050* -0.050* 03/17/2009 53 1.005 -0.4 Total Hip(Left) 11/26/2022 67 0.992 0.4 -0.030 0.043 02/21/2012 56 0.949 0.1 -0.073* -0.073* 03/17/2009 53 1.022 0.7 Total Hip(Right) 11/26/2022 67 0.981 0.3 -0.119 -0.069 02/21/2012 56 1.050 0.9 -0.050* -0.050* 03/17/2009 53 1.100 1.3 *Denotes significance at 95% confidence level, LSC for AP Spine = 0.022 g/cm2, LSC for Total Hip = 0.027 g/cm2 Clinical Information Provided by Patient: Patient maximum height was 65.0 Menopause Age: 49 No regular weight bearing exercise Drinks caffeinated beverages Onset of menses at age 13 Number of children 3 Impression: The patient has low bone mass, based on the Total Spine T-score. The patient has an estimated ten-year risk of hip fracture of 0.3% and an estimated ten-year risk of major fracture of 6.7%, based on the WHO FRAX algorithm. No significant bone loss was observed. Discussion: BONE DENSITY IS LOW AT ONE OR MORE SKELETAL SITES. Thi
--- NOTE | ~2022-11-26 | MM_ITS ---
EXAMINATION: MM screening fletcher BI w matty HISTORY: Screening mammogram TECHNIQUE: Craniocaudal and mediolateral oblique 3-D tomosynthesis images were obtained and synthetic 2-D images were generated. CAD analysis was submitted and interpreted. COMPARISON: 11/29/2016 bilateral screening mammogram BREAST PARENCHYMAL COMPOSITION: There are scattered areas of fibroglandular density. FINDINGS: There is no evidence of suspicious mass, calcification, or architectural distortion to sugg est malignancy in either breast. There has been no suspicious interval change. IMPRESSION: 1. No mammographic evidence of malignancy. 2. Recommend routine screening mammography in one year. BI-RADS Category 1: Negative Reviewed, dictated and finalized at location A.
== END ==
PROVIDERS: PCP Nurse Practitioner Family; Visit Provider Nurse Practitioner Family
DX: Z12.31 Encounter for screening mammogram for malignant neoplasm of breast (principal); Z78.0 Asymptomatic menopausal state; M85.88 Other specified disorders of bone density and structure, other site
CPT/HCPCS: 77063; 77067; 77080

== ENCOUNTER 2023-08-17 09:24 | Outpatient (CLI) | payer MEDICARE, SELFPAY ==
--- NOTE | ~2023-08-17 | US_ITS ---
US abdomen limited INDICATION: Abdominal pain PROCEDURE: Realtime right upper abdominal ultrasound. COMPARISON: Ultrasound dated 10/15/2010 FINDINGS: The pancreas is normal without focal mass or pancreatic ductal dilation. Liver echotexture is increased, consistent with fatty infiltration. There is normal directional flow in the portal ve in. There is adenomyomatosis of the gallbladder. There is a stone at the gallbladder neck. Common bile d uct measures 2 mm. No sonographic Jurado's sign. IMPRESSION: 1: Cholelithiasis. 2: Adenomyomatosis. 3: Fatty infiltration of the liver. Reviewed, dictated and finalized at location B.
== END 2023-08-17 09:25 | disposition home or self-care (01) ==
PROVIDERS: PCP Nurse Practitioner Family; Visit Provider Nurse Practitioner Family
DX: K80.20 Calculus of gallbladder without cholecystitis without obstruction (principal); N80.03 Adenomyosis of the uterus; K76.0 Fatty (change of) liver, not elsewhere classified
CPT/HCPCS: 76705

== ENCOUNTER 2024-03-22 14:27 | Emergency (ER) | payer MEDICARE, SELFPAY ==
[2024-03-22 14:48] VITALS: BP 134/92; PULSE 72; RESP 16; TEMP 36.2; O2SAT 99
--- NOTE | 2024-03-22 15:06 | ED_ITS ---
HPI - URI/Sore Throat General Chief Complaint: Upper Respiratory Infection Stated Complaint: stuffy head Time Seen by Provider: 03/22/24 14:31 Source: patient Mode of arrival: ambulatory Limitations: no limitations History of Present Illness HPI Narrative: Patient is a 68-year-old female who presents with congestion, cough, intermittent headache for 5 days. Was previously in [place] and got back 03/09. Has been taking Tylenol, ibuprofen and DayQuil. Denies any fever, chills, nausea, vomiting, diarrhea. Related Data Home Medications ?Medication ?Instructions ?Recorded ?Confirmed ?Last Taken ?Type lisinopril 10 mg tablet 10 mg PO DAILY 11/19/19 03/22/24 Unknown History escitalopram oxalate 10 mg tablet 10 mg PO DAILY 07/17/21 03/22/24 Unknown History ezetimibe 10 mg tablet 10 mg PO DAILY 07/17/21 03/22/24 Unknown History donepezil 5 mg tablet 5 mg PO .QD 03/22/24 03/22/24 Unknown History Allergies Allergy/AdvReac Type Severity Reaction Status Date / Time No Known Allergies Allergy Verified 03/22/24 14:43 Review of Systems Review of Systems: All systems reviewed & are unremarkable except as noted in HPI and below Constitutional: Constitutional: Denies body ache(s), Denies chills, Denies fatigue, Denies fever(s), Reports headache(s), Denies malaise and Denies weakness Eyes: Eyes: Denies blurry vision, Denies itchy eyes and Denies loss of vision ENT: Denies otalgia, Denies headache(s), Reports nasal congestion, Denies sinus pain and Denies sore throat Cardiovascular: Cardiovascular: Denies chest pain, Denies irregular heart rhythm and Denies dyspnea Respiratory: Respiratory: Reports cough and Denies dyspnea Gastrointestinal: Gastrointestinal: Denies abdominal pain, Denies diarrhea, Denies nausea and Denies vomiting Musculoskeletal: Musculoskeletal: Denies back pain, Denies myalgias and Denies arthralgias Integumentary/Breasts: Skin/Breast: Denies pruritus and Denies rash Neurologic: Denies headache(s), Denies loss of vision and Denies weakness Psychiatric: Psychiatric: Reports no additional psychiatric complaints Endocrine: Endocrine: Denies fatigue Allergic/Immunologic: Allergic/Immunologic: Denies itchy eyes PMFSH Past Medical History Medical History UTI (urinary tract infection) Social History Social History Smoking end date: 03/21/95 Alcohol intake: current Comments At time of signature, agree with nursing past medical, surgical, social and family history. There is no relevant family history pertinent to the presenting complaint. Exam Const: General: cooperative, healthy appearing, comfortable, no acute distress and well nourished Nutritional Appearance: well nourished Orientation/consciousness: patient oriented x3 Limitations: no limitations HENMT: Head: normal to inspection, normocephalic and atraumatic Ears: hearing grossly normal bilaterally, external ears normal, TM's normal bilaterally, EAC's normal and no periauricular adenopathy Face/Nose/Sinus: Normal external nose present, Abnormal mucous membranes and turbinates present erythematous bilateral and diffuse, normal facial exam, sinuses nontender and face symmetric Face and sinus: normal facial exam, sinuses nontender and face symmetric Mouth: Yes Normal oral and palatal mucosa present, Yes lip normal, Yes tongue normal, Yes Normal salivary glands and ducts present, Yes oropharynx normal and Yes moist mucous membranes Teeth and gingiva: dentition normal Throat: posterior oropharynx normal, tonsils normal and uvula midline Eyes: General: appearance normal, both eyes and all related structures Alignment and Position: alignment normal and position normal Periorbital: periorbital findings normal Eyelids: eyelids normal Pupils: Equal, round and reactive pupils present Neck: Neck: normal visual inspection, full ROM, no lymphadenopathy and supple Chest: Chest palpation & inspection: normal inspection of the chest and normal palpation of entire chest wall Resp: Effort & Inspection: normal respiratory effort, able to speak in complete sentences and Actively coughing actively coughing Auscultation: no crackles, no rales, rhonchi lower bilaterally and wheezes scattered wheezes and throughout Cardio: Rate: regular rate Rhythm: regular rhythm Heart sounds: S1 normal heart sound present and S2 normal heart sound present GI: Inspection: normal to inspection Skin: General skin exam: normal color and no rashes or lesions noted Neuro: General: patient oriented x3 and moves all extremities Cranial nerve s: Yes Equal, round and reactive pupils present Speech: normal speech Gait exam (Neuro): Normal gait present Extrem: General: normal to inspection, full ROM and no edema Psych: Appearance: grossly normal and well kempt Mental Status: mental status grossly normal Speech and movement: Normal speech and movement present Affect: normal affect Attitude: cooperative Thought process: Normal thought process present Course Course Emergency Course: Discharge instructions reviewed with patient, as well as provided in writing per nursing staff. The instructions also include specific and strict return/GO TO THE ER as well as f/u information. All questions have been answered, and the patient deny any further questions with discharge and discharge plan. Portions of this record may have been created with voice recognition software Level of Care: Express Care Visit Vital Signs Vital signs: Vital Signs Temperature 36.2 C L 03/22/24 14:48 Pulse Rate 72 03/22/24 14:48 Respiratory Rate 16 03/22/24 14:48 Blood Pressure 134/92 H 03/22/24 14:48 Pulse Oximetry 99 03/22/24 14:48 Oxygen Delivery Room Air 03/22/24 14:48 Temperature 36.2 C L 03/22/24 14:48 Pulse Rate 72 03/22/24 14:48 Respiratory Rate 16 03/22/24 14:48 Blood Pressure 134/92 H 03/22/24 14:48 Pulse Oximetry 99 03/22/24 14:48 Oxygen Delivery Room Air 03/22/24 14:48 Reviewed MDM - URI/Sore Throat MDM Narrative Medical decision making narrative: Pt well hydrated appearing, in no respiratory distress, hemodynamically stable. Recommend supportive care. The patient is stable at time of discharge the clinical impression was discussed and the patient was given the opportunity to ask questions, which were addressed as completely as possible given the information available at present. Anticipatory guidance and return to care precautions were discussed and the importance of primary care follow-up was stressed and encouraged. The patient voiced understanding of the plan, indications to return, and the need for follow-up. Differential diagnosis considered: [place] virus, strep pharyngitis, allergic rhinitis, upper respiratory tract infection, sinusitis, rhinosinusitis, nasopharyngitis. viral pharyngitis, otitis media, otitis externa, otitis effusion, foreign body, cerumen impaction, viral syndrome, and influenza.? Exam findings show no acute concerns or changes; patient is non-toxic appearing and is in no distress.? Patient is appropriate for outpatient treatment and follow- up.? Medical Records Attestation: I reviewed the patient's medical records. Discharge Plan Discharge Clinical Impression: Upper respiratory infection with cough and congestion Patient Disposition: Home, Self-Care Condition: Stable Instructions: Upper Respiratory Infection (ED) Additional Instructions: Take antibiotic as prescribed. Take steroids in the morning with food. Use Tessalon Perles as needed for cough. Use inhaler with spacer as needed. Other symptomatic treatments include: -Alternate Tylenol and Motrin per package directions for fever or pain. -Antihistamine medication such as Benadryl at night and Zyrtec/Claritin/Nieves during the day can help improve symptoms. -Use Flonase twice a day for 5 days then daily to help reduce the inflammation and dry up your sinuses. -You can also use Sudafed or Mucinex. Be sure to drink plenty of water with these medications at least 8 ounces with every dose and it is important to drink 8 to 10 glasses of water per day. Water is a natural decongestant -Eat and drink things that are easy to swallow, like tea or soup, or popsicles. -Oral rinses such as: Salt water gargles and/or may use topical anesthetic (eg. Chloraseptic spray) or lozenges to relieve dryness or throat pain). -Frequent hand washing or hand damage prevention coordinator is one of the best ways to prevent spread of infection. -Using a vaporizer or humidifier at night will also help thin secretions and help with coughing up phlegm. -Follow up with primary care provider in 3-5 days if condition is not improving - For new or worsening symptoms go directly to the nearest ER Your blood pressure was elevated above 120/80 today at Urgent Care. This puts you above the threshold for follow up visit with a primary care provider. High blood pressure does not usually cause any symptoms, however it may lead to kidney failure, stroke, heart disease just to name a few if untreated . Many people are anxious when seeing a provider or nurse. As a result, you are not diagnosed with hypertension at this time unless your blood pressure is persistently high at two office visits at least one week apart. Some things that can help lower blood pressure are lifestyle modifications, such as light exercise, decreased salt in diet, and weight loss. It is important to follow up with a PCP about this within 1 week. Patient Language: Portuguese Prescriptions: New doxycycline monohydrate 100 mg tablet 100 mg PO BID 5 Days Qty: 10 0RF benzonatate 100 mg capsule 100 mg PO BID PRN (Reason: cough) Qty: 14 0RF methylprednisolone [Medrol (Antoine)] 4 mg tablets,dose pack See Rx Instructions .ROUTE .COMPLEX Qty: 21 0RF Rx Instructions: orally per package directions albuterol sulfate 90 mcg/actuation HFA aerosol inhaler 2 puff inhalation QID PRN (Reason: shortness of breath or wheezing) Qty: 6.7 0RF (DME) Aerochamber MV Spacer See Rx Instructions .Route Qty: 1 0RF Rx Instructions: As directed No Action lisinopril 10 mg tablet 10 mg PO DAILY escitalopram oxalate 10 mg tablet 10 mg PO DAILY ezetimibe 10 mg tablet 10 mg PO DAILY polymyxin B sulf-trimethoprim 10,000 unit- 1 mg/mL drops 1 drp RIGHT EYE Q3H 7 Days Qty: 10 0RF Rx Instructions: while awake; do not exceed 6 doses in 24 hours donepezil 5 mg tablet 5 mg PO .QD Follow-up/Referrals: Hilton,Palma Moore APRN [Primary Care Provider] - 3 Days Time of Disposition: 15:38
== END 2024-03-22 15:40 | disposition home or self-care (01) ==
PROVIDERS: Emergency Provider Nurse Practitioner Family; PCP Nurse Practitioner Family
DX: J06.9 Acute upper respiratory infection, unspecified (principal); R05.9 Cough, unspecified
CPT/HCPCS: 99213; G0463

== ENCOUNTER 2024-05-03 17:50 | Emergency (ER) | payer MEDICARE, SELFPAY ==
--- NOTE | ~2024-05-03 | XR_ITS ---
CHEST RADIOGRAPH, PA AND LATERAL CLINICAL HISTORY: cough . COMPARISON: None available TECHNIQUE: PA and lateral views of the chest. FINDINGS The cardiomediastinal silhouette is unremarkable. The lungs are clear. Visualized osseous structures and soft tissues are unremarkable. IMPRESSION: No focal infiltrate or effusion. Reviewed, dictated and finalized at location A. T METAL SHOP SUPERVISOR
--- NOTE | ~2024-05-03 | CT_ITS ---
History: Headache with remote history of a fall PROCEDURE: CT head without contrast. COMPARISON: 04/07/2024 TECHNIQUE: Axial imaging of the head performed from the skull base to the vertex without IV contrast. Sagittal a nd coronal reformations obtained. DLP: 605 mGy-cm FINDINGS: The ventricles are normal in size, shape and position. There is no mass, mass effect or midline shift. There is no abnormal extra-axial fluid collection or intracranial hemorrhage. Air-fluid level within the right maxillary sinus. Mucoperiosteal thickening within the bilateral sphenoid sinuses and the posterior ethmoid sinuses. Remaining paranasal sinuses are clear. The mastoid air cells are well aerated. No acute displaced fractures within the overlying cranium. Impression: No acute intracranial hemorrhage or suspicious mass effect. Inflammatory sinus disease. Reviewed, dictated and finalized at location A. BILITATION THERAPIST Impression: No acute intracranial hemorrhage or suspicious mass effect. Inflammatory sinus disease.
--- OUTSIDE RECORDS SUMMARY | 2024-05-03 17:53 | XMS_ITS | Continuity of Care Document ---
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 - Active multivitamin tablet take 1 tablet by ora l route every day with food - Active Advance Directives Directive Yes / No Effective Date File Name No Information Encounters Encounter Description Practice Location Reason(s) For Visit Diagnoses Date Provider Providers Copied on Encounter [facility], [address], [place], [place], [id number] , tel: [phone] [place] No Information July-0 8-201 7 [facility] [address], [address], . tel: [phone] [facility], [address], [place], [place], [id number] , tel: [phone] [facility] No Information May-0 9-201 6 [facility]. [address], [address], [place]. tel: [phone] [facility], [address], [place], [place], [id number] , tel: [phone] [facility] Elevated cholesterol 6 [facility]. [address], [facility], . tel: [phone] Referring Provider: Ashly Woodward, [address] [place] [address], [facility]. tel:[phone] [facility], [address], [place], [place], [id number] , tel: [phone] [facility] Elevated cholesterolElevated liver enzymes 6 [facility], [facility], . tel: [phone] [facility], [address], [place], [place], [id number] , tel: [phone] [facility] Upper respiratory tract infection, unspecified type 5 [facility], [facility], . tel: [phone] Referring Provider: Ashly Woodward, [address] [place] [address], [facility]. tel:[phone] [facility], [address], [place], [place], [id number] , tel: [phone] [facility] Routine health maintenanceEncounter for screening colonoscopy 5 [facility]on[address], [facility], . tel: [phone] Referring Provider: Ashly Woodward, [address] [place] [address], [facility]. tel:[phone] Family History Family Member Type Diagnosis Age At Onset Mother Problem (finding) hypertension Payers Payer name Insurance type Covered libertarian ID Ronnell rincon(s) [facility] [id number] Social History Type Description Quantity Date Captured Comments Alcohol Use Details Unknown Caffeine Use Details Unknown Tobacco Use Status No Information Smoking Status No Information Sex Female Chief Complaint And Reason For Visit No Information Reason For Referral Reason For Referral No Information History Of Present Illness Encounter Date Complaint History Of Prese nt Illness No Information Functional Status Date Functional Assessmen t No Information Instructions Date Instruction Additional Infor mation No Information Assessments Type Assessment Date No Information Patient Care Teams Name Effective Dates (start - stop) Status Members No Information
--- OUTSIDE RECORDS SUMMARY | 2024-05-03 17:53 | XMS_ITS | Referral Summary ---
Author Organization [address] Address [facility] [place] [address] Care Team Providers Care Patents Examiner Name Role Phone Alen Ortega MD Primary Care Provider [phone] Allergies No known active allergies Medications lisinopriL (PRINIVIL,ZESTRI L) 10 mg tablet Take 10 mg by mouth daily 10/05/2019 Active Active Problems No known active problems Social History Tobacco Use Types Packs/Day Years Used Date Smoking Tobacco: Former Personal Safety Answer Date Recorded Getting School Help Needed Not on file 06/04 Comments Unknown Sex and Gender Information Value Date Recorded Sex Assigned at Not on file 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 Gender Identity Not on file Sexual Orientation Not on file Last Filed Vital Signs Vital Sign Reading Time Taken Comments Blood Pressure - - Pulse - - Temperature - - Respiratory Rate - - Oxygen Saturation - - Inhaled Oxygen Concentration - - Weight 90.7 kg (200 lb) 10/10/2019 10:23 AM CDT Height 167.6 cm (5' 6 ) 10/10/2019 10:23 AM CDT Body Mass Index 32.28 10/10/2019 10:23 AM CDT Plan of Treatment Not on file Insurance [facility] HMO REF [facility] [employer] HMO REF Care Teams Patents Examiner Relationship Specialty Start Date End Date Alen Ortega MD PCP - General Family Practice 03/19/20
--- OUTSIDE RECORDS SUMMARY | 2024-05-03 17:53 | XMS_ITS | Clinical Summary ---
Author Organization [facility] Address [facility] [place] [address] Care Team Providers Care Tariff Counsel Name Role Phone Gus Espinosa MD Unavailable [phone] Greg Atkins MD Unavailable [phone] Maricruz Bergman NP Unavailable Unavaila Alexandrea Warner MD Primary Care Provider [phone] Ashwin Paulino MD Unavailable [phone] Allergies Active Allergy Reactions Criticality Noted Date Comments Atorvastatin Myalgias High 05/02/2019 Medications donepezil (ARICEPT) 5 MG TabIndications:MCI (mild cognitive impairment) Take 1 tablet (5 mg total) by mouth nightly at bedtime. 30 tablet 11 11/01/19 24 Active escitalopram (LEXAPRO) 10 MG tabletIndications: Situational anxiety TAKE 1/2 TABLET(5 MG) BY MOUTH EVERY NIGHT AT BEDTIME 45 tablet 03/28/19 25 Active clotrimazole (LOTRIMIN) 1 % creamIndications:C andidal intertrigo Apply topically 2 (two) times daily. 28 g 2 05/03/19 25 Active ezetimibe (ZETIA) 10 MG tabletIndications: Mixed hyperlipidemia Take 1 tablet (10 mg total) by mouth daily. 90 tablet 3 05/03/19 25 Active gemfibrozil (LOPID) 600 MG tabletIndications: Mixed hyperlipidemia Take 1 tablet (600 mg total) by mouth daily. 90 tablet 3 05/03/19 25 Active lisinopril (PRINIVIL) 10 MG tabletIndications: Essential hypertension TAKE 1 TABLET(10 MG) BY MOUTH DAILY 90 tablet 11/16/19 24 025 Discontin ued(Thera py completed ) ezetimibe (ZETIA) 10 MG tablet Take 1 tablet (10 mg total) by mouth daily. 025 Discontin ued(Reord er) gemfibrozil (LOPID) 600 MG tablet Take 1 tablet (600 mg total) by mouth daily. 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 (CMS/HCC HHS/HCC) 12/16/2022 Uncomplicated alcohol dependence ([facility] HHS/HC C) 08/17/2022 History of colon polyps 02/19/2020 Overview (02/19/2020): Tubular adenoma no high risk dysplasia ([facility]isca 04/2015) Arthritis of both glenohumeral joints 02/19/2020 Rotator cuff tear arthropathy of both shoulders 02/19/2020 Situational anxiety 02/27/2019 Elevated LFTs 02/27/2019 Essential hypertension 02/27/2019 Diverticulosis of large intestine without hemorr arielle 03/27/2018 Pain, low back 11/07/2017 Hyperlipidemia 09/01/2017 Resolved Problems Problem Noted Date Diagnosed Date Resolved Date Encounter for preventive health examination 08/31/2017 11/30/2019 Encounters Date Type Department Care Team Description 05/03/2024 1:00 PM PLASTIC INSTALLER Office Visit [address] [address] Alexandrea Kelly MD Establish Care (11/01/2023 palma avery); Fall (X 1 month ago while getting into car injured rt hand) 05/03/[address] [address] Alexandrea Kelly MD Altered Mental Status 05/03/2024 Travel 04/07/2024 Scan Riptide IO INFO SRVCS Scanned, Doc [facility] Image (SCAN); CT (SCAN) 02/23/2024 9:00 AM PLASTIC INSTALLER Office Visit [facility] Family [address] [address] Palma Avery, ENTERPRISE APPLICATION ADMINISTRATOR- Medicare Wellness (Patient presents today for her Medicare Annual Wellness Visit) 02/23/2024 Travel from Last 3 Months Immunizations Name Administration Dates Next Due Influenza Adult (Generic) 04/14/2021(Deferred: P atient Refused) MODERNA COVID-19 (12+) MRNA, LNP-S, PF, 100 MCG/ 0.5 ML DOSE 06/04/2020,05/07/2020 Pneumococcal (Prevnar 13) 02/19/2020 Pneumococcal (Prevnar 20) 08/17/2022 Tdap (Generic) 12/22/2021 Family History Medical History Relation Comments Alcohol Abuse Brother 1 Cancer Brother 1 tesicluar Hyperlipidemia Brother 1 Alcohol Abuse Daughter Cancer Daughter lymphoma Aneurysm Father AAA Diabetes Father Heart Disease Father Hyperlipidemia Father Hypertension Mother Substance Abuse Son Relation Status Comments Brother 1 Alive Brother 2 Daughter Alive Father Mother Alive Son Alive Social History Tobacco Use Types Packs/Day Years Used Date Smoking Tobacco: Former Cigarettes 0.3 15 0 03/21/1987 - 03/21/2002 Passive Smoke Exposure: Past Smokeless Tobacco: Never Tobacco Cessation:Counseling Given: No Alcohol Use Standard Drinks/Week Comments Yes 35 (1 standard drink = 0.6 oz pu re alcohol) once a week AUDIT-C Answer Date Recorded Q1: How often do you have a drink containing alcohol? 4 or more times a week 02/23/2024 Q2: How many drinks containi ng alcohol do you have on a typical day when you are drinking? 5 or 6 Q3: How often do you have si x or more drinks on one occasion? Daily or almost daily 02/23/2024 PHQ-2 Answer Date Recorded Patient Health Questionnaire-2 Score 3 05/03/2024 Comments No Sex and Gender Information Value Date Recorded Sex Assigned at Female 05/03/2024 12:48 PM PLASTIC INSTALLER Legal Sex Female 5:07 PM CDT Gender Identity Female 04/06/2021 3:36 PM PLASTIC INSTALLER Sexual Orientation Not on file Last Filed Vital Signs Vital Sign Reading Time Taken Comments Blood Pressure 115/74 05/03/2024 1:03 PM PLASTIC INSTALLER Pulse 82 05/03/2024 1:03 PM PLASTIC INSTALLER Temperature 36.9 C (98.5 F) 05/03/2024 1:03 PM PLASTIC INSTALLER Respiratory Rate 12 05/03/2024 1:03 PM PLASTIC INSTALLER Oxygen Saturation 95% 05/03/2024 1:03 PM PLASTIC INSTALLER Inhaled Oxygen Concentration - - Weight 91.5 kg (201 lb 12.8 oz) 05/03/2024 1:03 PM PLASTIC INSTALLER Height 162.6 cm (5' 4 ) 05/03/2024 1:03 PM PLASTIC INSTALLER Body Mass Index 34.64 05/03/2024 1:03 PM PLASTIC INSTALLER Plan of Treatment Upcoming Encounters Date Type Department Care Team (Late st Contact Info) Description 10/16/2024 1:20 PM CDT [facility] [address], [address] [place] [address] Greg Atkins MD [address] [place] [address] 10/31/2024 9:40 AM CDT Office Visit [address] [address] Alexandrea Kelly MD [address] [place] [phone] 02/28/2025 10:00 AM PLASTIC INSTALLER Office Visit [address] [place] [address] [facility] [place] [address] Health Maintenance Due Date Last Done Comments Mammogram Screening 11/27/2023 11/26/2022, 05/21/2021 COVID-19 Vaccine (2023-2 5 season) 2025 06/04/2020, 05/07/2020 Postponed from 11/20/2023 (Patient Refused) Influenza Adult (#1) 2025 Postpon ed from 12/20/2023 (Patient Refused) RSV Immunization or 60+ Years (1 - Risk 60-74 years 1-dose series) 02/22/2025 Postponed from 06/2014 (Patient Refused) Zoster Vaccines (1 of 2) 02/22/2025 Pos tponed from 2004 (Patient Refused) Annual Medicare Wellness Visit 02/23/2025 02/23/2024 Colorectal Cancer Screening Colonoscopy (10 Years) 05/05/2025 05/05/2015 DTaP, Tdap and Td Vaccines ( 2 - Td or Tdap) 12/23/2031 12/22/2021 Hepatitis C Completed 02/27/2019 Pneumococcal Vaccine: 65+ Years Completed 08/17/2022, 02/19/2020 Dexa Scan (General) Completed 11/26/2022 PHQ-2 (Physician [place]) Completed 05/03/2024 Meningococcal B Vaccine Aged Out No l onger eligible based on patient's age to complete this topic Meningococcal Vaccine Aged Out No rocky asuncion eligible based on patient's age to complete this topic RSV Immunizations Under 20 Months Aged Out No longer eligible b ased on patient's age to complete this topic Procedures Procedure Name Priority Date/Time Associated Diagnosis Comments CT GENERIC 04/07/2024 CT GENERIC 04/07/2024 IMAGE GENERIC 04/07/2024 BONE DENSITY GENERIC (SCAN ORDER) 11/26/2022 MAMMOGRAM GENERIC (SCAN ORDER) 11/26/2022 HEPATITIS C ANTIBODY Routine 02/27/2019 10:24 AM PLASTIC INSTALLER Need for hepatitis C screening test COLONOSCOPY GENERIC (SCAN ORDER) Routine 05/05/2015 12:00 AM PLASTIC INSTALLER from Last 3 Months or Most Recently Relevant to Health Maintenance Results * CT GENERIC (04/07/2024) Only the most recent of2 resultswithin the time period is included. Anatomical Region Laterality Modality Other 04/07/2024 [facility] Scanned SCANNING Final Resu lt * IMAGE GENERIC (04/07/2024) Anatomical Region Laterality Modality Other 04/07/2024 [facility] Scanned SCANNING Final Resu lt * BONE DENSITY GENERIC (11/26/2022) Anatomical Region Laterality Modality Other 11/26/2022 [facility] Scanned SCANNING Final Resu lt * MAMMOGRAM GENERIC (11/26/2022) Anatomical Region Laterality Modality Other 11/26/2022 [facility] Scanned SCANNING Final Resu lt * HEPATITIS C ANTIBODY (02/27/2019 10:24 AM PLASTIC INSTALLER) HEPATITIS C AB NON-REACT BEBETO NON-REACT BEBETO [facility] SIGNAL TO CUTOFF 0.01 <1.00 [facility] Comment: HCV antibody was non-reactive. There is no laboratory evidence of HCV infection. In most cases, no further action is required. However, if recent HCV exposure is suspected, a test for HCV RNA (test code 99749) is suggested. For additional information please refer to http://education.[employer]/faq/RTB43w3 (This link is being provided for informational/ educational purposes only.) 02/27/2019 10:2 4 AM PLASTIC INSTALLER 02/28/2019 7:02 AM PLASTIC INSTALLER Narrative Resulting Agency Comment Performing Organization Information: Site ID: [id number] Name: [id number] Address: [address] [address] Director: Bertram Thorne D.O., MPH Result [facility] Palma Avery [facility] Final Resul t [facility] * COLONOSCOPY (05/05/2015 12:00 AM PLASTIC INSTALLER) 05/05/2015 us Documents Scanned SCANNING Final Result [facility] from Last 3 Months or Most Recently Relevant to Health Maintenance Insurance [facility] Care Teams Tariff Counsel Relationship Specialty Start Date End Date Alexandrea Kelly MD [address] [place] [address] PCP - General FAMILY PRACTICE 02/22/24 Gus Espinosa MD [address] [place] [address] GASTROENTEROLOGY 02/27/19 Greg Atkins MD [address] [place] [address] Physician NEUROMUSCULOSKELETAL MEDICINE 08/17/22 Maricruz Bergman NP [address] [place] [address] Nurse Practitioner NEUROLOGY 02/17/23 Ashwin Paulino MD 1 [place] [address] SURGERY 02/23/24
--- OUTSIDE RECORDS SUMMARY | 2024-05-03 17:53 | XMS_ITS | Encounter Summary ---
Author Organization [facility] Address [address] [place] [address] Care Team Providers Care Marble Installer Name Role Phone Gus Espinosa MD Unavailable [phone] Greg Atkins MD Unavailable [phone] Maricruz Bergman NP Unavailable Unavaila ble Alexandrea Kelly MD Primary Care Provider [phone] Ashwin Paulino MD Unavailable [phone] Encounter Details Date Type Department Care Team (Latest Contact Info) Description 05/03/2024 Travel Social History Tobacco Use Types Packs/Day Years Used Date Smoking Tobacco: Former Cigarettes 0.3 15 0 03/21/1987 - 03/21/2002 Passive Smoke Exposure: Past Smokeless Tobacco: Never Alcohol Use Standard Drinks/Week Comments Yes 35 [...] Sex Assigned at Female 05/03/2024 12:48 PM COLLISION MECHANIC Legal Sex Female 5:07 PM CDT Gender Identity Female 04/06/2021 3:36 PM COLLISION MECHANIC Sexual Orientation Not on file documented as of this encounter Plan of Treatment Upcoming Encounters Date Type Department Care Team (Late st Contact Info) Description 10/16/2024 1:20 PM CDT Office Visit [facility] [address] [facility], [address] [place] [address] Greg Atkins MD 3 [place] [address] 10/31/2024 9:40 AM CDT Office Visit [address] [address] Alexandrea Kelly MD [address] [place] [address] 02/28/2025 10:00 AM COLLISION MECHANIC Office Visit [address] [address] Alexandrea Kelly MD [address] [place] [address] documented as of this encounter Visit Diagnoses Not on filedocumented in this encounter Additional Health Concerns Assessment Noted Time PHQ-9 Depression Total Score: 6 05/03/19 25 1:00 PM COLLISION MECHANIC documented as of this encounter Care Teams Marble Installer Relationship Specialty Start Date End Date Alexandrea Kelly MD 1 [place] [address] PCP - General FAMILY PRACTICE 02/22/24 Gus Espinosa MD [address] [place] [address] GASTROENTEROLOGY 02/27/19 Greg Atkins MD [address] [place] [address] Physician NEUROMUSCULOSKELETAL MEDICINE 08/17/22 Maricruz Bergman NP 3 [place] [address] Nurse Practitioner NEUROLOGY 02/17/23 Ashwin Paulino MD 1 [place] [address] SURGERY 02/23/24 documented as of this encounter
--- OUTSIDE RECORDS SUMMARY | 2024-05-03 17:53 | XMS_ITS ---
Author Organization [facility] Address [address], [place] [address] Care Team Providers Care Endband Sizer Name Role Phone zginoMigrning, zzzzProvider Unavailable Unav ailable Allergies No Known Allergies REASON FOR VISIT [facility] Medications Medication SIG (Take, Route, Frequency, Duration) Notes Start Date End Date Status Vitamin V06-Qhpyo Acid 500-400 MCG Oral Active traMADol HCl 50 MG take 1 tablet by ora l route 3 times a day PRN pain Oral 3 01/20/2016 Active Diclofenac Sodium 75 MG take 1 tablet (7 5 mg) by oral route 2 times per day Oral 2 09/23/2015 Active Xanax 0.5 MG take 1 tablet by ora l route 30 minutes before scan and then take 2nd tablet upon arrival if still feeling anxious Oral 3 01/20/2016 Active Encounters Encounter Location Date Provider Diagnosis [facility] [address] [facility] [address], [place] [address] 01/09/2023 zzzzProvider zzzzMigration Plan Of Treatment No Information Progress Notes * Huey PETERSOB: [birth year] (68 yo F)Acc No.[id number]:01/09/2023 Patient: Konstantin TrejoJULIETMary :1955 A ge:67 Y S ex:Female Address:[address] [place] [id number] Subjective: * Chief Complaints: * E MR-Isael * Medical History: * Surgical History: * NO SURGERIES; 2015-06-13 * Hospitalization/Major Diagno stic Procedure: * Social History: M igrated Social History: M igrated Social History: Exercise :: Exercises regularly , Exercise :: Walks , 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 * Medications: T akingtraMADol HCl 50 MG Tablet take 1 tablet by oral route 3 times a day PRN pain Oral 3 Diclofenac Sodium 75 MG Tablet Delayed Release take 1 tablet (75 mg) by oral route 2 times per day Oral 2 Xanax 0.5 MG Tablet take 1 tablet by oral route 30 minutes before scan and then take 2nd tablet upon arrival if still feeling anxious Oral 3 Vitamin R85-Nxucr Acid 500-400 MCG Tablet Oral Taking traMADol HCl 50 MG Tablet take 1 tablet by oral route 3 times a day PRN pain Oral 3 Taking Diclofenac Sodium 75 MG Tablet Delayed Release take 1 tablet (75 mg) by oral route 2 times per day Oral 2 Taking Xanax 0.5 MG Tablet take 1 tablet by oral route 30 minutes before scan and then take 2nd tablet upon arrival if still feeling anxious Oral 3 Taking Vitamin M48-Uhxzm Acid 500-400 MCG Tablet Oral * Allergies: N .K.D.A.no[Allergies Verified] Objective: * Vitals: * Physical Examination: Assessment: Plan: * Treatment: * Procedure Codes: * * Date:
--- OUTSIDE RECORDS SUMMARY | 2024-05-03 17:53 | XMS_ITS | Continuity of Care Document ---
Author Organization [facility] Address [address] [place] [address] [place] [address] Phone Care Team Providers Care Entertainment Director Name Role Phone Daryl Ware Unavailable Unavailable Procedures Procedure Date PT RE-EVALUATION THERAPEUTIC EXERCISES NEUROMUSCULAR RE-ED MANUAL THERAPY FUNC ACTIVITY 15 MIN THERAPEUTIC EXERCISES NEUROMUSCULAR RE-ED MANUAL THERAPY FUNC ACTIVITY 15 MIN THERAPEUTIC EXERCISES NEUROMUSCULAR RE-ED MANUAL THERAPY FUNC ACTIVITY 15 MIN THERAPEUTIC EXERCISES NEUROMUSCULAR RE-ED MANUAL THERAPY FUNC ACTIVITY 15 MIN THERAPEUTIC EXERCISES NEUROMUSCULAR RE-ED MANUAL THERAPY FUNC ACTIVITY 15 MIN HOT/COLD PACK PT RE-EVALUATION THERAPEUTIC EXERCISES NEUROMUSCULAR RE-ED MANUAL THERAPY FUNC ACTIVITY 15 MIN HOT/COLD PACK THERAPEUTIC EXERCISES NEUROMUSCULAR RE-ED MANUAL THERAPY FUNC ACTIVITY 15 MIN HOT/COLD PACK THERAPEUTIC EXERCISES NEUROMUSCULAR RE-ED MANUAL THERAPY FUNC ACTIVITY 15 MIN HOT/COLD PACK THERAPEUTIC EXERCISES NEUROMUSCULAR RE-ED MANUAL THERAPY FUNC ACTIVITY 15 MIN HOT/COLD PACK THERAPEUTIC EXERCISES NEUROMUSCULAR RE-ED MANUAL THERAPY FUNC ACTIVITY 15 MIN HOT/COLD PACK THERAPEUTIC EXERCISES NEUROMUSCULAR RE-ED MANUAL THERAPY FUNC ACTIVITY 15 MIN HOT/COLD PACK PT RE-EVALUATION THERAPEUTIC EXERCISES NEUROMUSCULAR RE-ED MANUAL THERAPY FUNC ACTIVITY 15 MIN THERAPEUTIC EXERCISES NEUROMUSCULAR RE-ED MANUAL THERAPY FUNC ACTIVITY 15 MIN THERAPEUTIC EXERCISES NEUROMUSCULAR RE-ED MANUAL THERAPY HOT/COLD PACK THERAPEUTIC EXERCISES MANUAL THERAPY HOT/COLD PACK THERAPEUTIC EXERCISES MANUAL THERAPY HOT/COLD PACK THERAPEUTIC EXERCISES MANUAL THERAPY THERAPEUTIC EXERCISES MANUAL THERAPY HOT/COLD PACK PT EVALUATION MANUAL THERAPY Advance Directives Directive Yes / No Effective Date File Name No Information Encounters Encounter Description Practice Location Reason(s) For Visit Diagnoses Date Provider Providers Copied on Encounter [facility] [address], [place], [place], [id number], [place] tel:[phone] [place] No Information 4 Clayton Brito. [address] [facility], [address], [place], [address], [place]. tel:[phone] Referring Provider: Mellissa Epps [address], [place], [address]. tel:[phone] [facility], [place], [place], [id number], tel:[phone] [place] No Information Apr-0 2-201 4 Muehl Daryl. [address] [place] [address], [address], [place], [place], [facility], . tel: [phone] Referring Provider: Mellissa Eppsson [address], [place], [address]. tel:[phone] [facility] [address], [place], [place], [id number], tel:[phone] [place] No Information Mar-1 9-201 4 Muehl Daryl. [address] [place] [address], [address], [place], [facility], [place]. tel: [phone] Referring Provider: Mellissa Eppsson [address], [place], [address]. tel:[phone] [facility] [address], [place], [place], [id number], tel:[phone] [place] No Information Mar-1 2-201 4 Muehl Daryl. [address] [place] [address], [address], [place], [facility], [place]. tel: [phone] Referring Provider: [address], [place], [address]. tel:[phone] [facility] [address], [place], [place], [id number], tel:[phone] [place] No Information Mar-0 5-201 4 Muehl Daryl. [address] [place] [address], [address], [place], [facility], [place]. tel: [phone] Referring Provider: [address], [place], [address]. tel:[phone] [facility] [address], [place], [place], [id number], tel:[phone] [place] No Information 4 Muehl Daryl. [address] [place] [address], [address], [place], [address], [place]. tel: [phone] Referring Provider: [address], [place], [address]. tel:[phone] [address], [place], [place], [id number], [place] tel:[phone] [place] No Information 4 Muehl Daryl. [address] [place] [address], [address], [place], [address], [place]. tel: [phone] Referring Provider: [address], [place], [address]. tel:[phone] [address], [place], [place], [id number], [place] tel:[phone] [place] No Information 4 Muehl Daryl. [address] [place] [address], [address], [place], [address], [place]. tel: [phone] Referring Provider: [address], [place], [address]. tel:[phone], [place], [place], [id number], [place] tel:[phone] [place] No Information 4 Muehl Daryl. [address] [place] [address], [address], [place], [address], [place]. tel:[phone] Referring Provider: [address], [place], [address]. tel:[phone], [place], [place], [id number], [place] tel:[phone] [place] No Information 4 Muehl Daryl. [address] [place] [address], [address], [place], [address], [place]. tel: [phone] Referring Provider: [address], [place], [address]. tel:[phone] [address], [place], [place], [id number], [place] tel:[phone] [place] No Information Leon-2 0-201 4 Muehl Daryl. [address] [place] [address], [address], [place], [facility], [place]. tel: [phone] Referring Provider: [address], [place], [address]. tel:[phone] [address] [address], [place], [place], [id number], [place] tel:[phone] [place] No Information Dec-2 7-201 3 Muehl Daryl. [address] [place] [address], [address], [place], [facility], [place]. tel: [phone] Referring Provider: [address], [place], [address]. tel:[phone] [address], [place], [place], [id number], [place] tel:[phone] [place] No Information Dec-2 3-201 3 Muehl Daryl. [address] [place] [address], [address], [place], [address], [place]. tel: [phone] Referring Provider: [address], [place], [address]. tel:[phone], [place], [place], [id number], [place] tel:[phone] [place] No Information Dec-1 6-201 3 Muehl Daryl. [address] [place] [address], [address], [place], [address], [place]. tel: [phone] Referring Provider: [address], [place], [address]. tel:[phone] [address], [place], [place], [id number], tel:[phone] [place] No Information Dec-1 3-201 3 Muehl Daryl. [address] [place] [address], [address], [place], [facility], [place]. tel:[phone] Referring Provider: [address], [place], [address]. tel:[phone] [address], [place], [place], [id number], tel:[phone] [place] No Information Dec-1 1-201 3 Muehl Daryl. [address] [place] [address], [address], [place], [facility], [place]. tel:[phone] Referring Provider: [address], [place], [address]. tel:[phone] [address], [place], [id number], tel:[phone] [place] No Information Dec-0 5-201 3 Muehl Daryl. [address] [place] [address], [address], [place], [address], [place]. tel:[phone] Referring Provider: [address], [place], [address]. tel:[phone] [address], [id number], [place] tel:[phone] [place] No Information Dec-0 4-201 3 Muehl Daryl. [address] [place] [address], [address], [place], [address], [place]. tel:[phone] Referring Provider: Mellissa E[address], [place], [address]. tel:[phone] [facility], [address] [facility], [place], [place], [id number], [place] tel:[phone] [place] Pain in joint involving shoulder region 3 Elena Kumar. . Referring Provider: [address]issa [address], [place], [address]. tel:[phone] Family History Family Member Type Diagnosis Age At Onset No Information Payers Payer name Insurance type Covered green party ID Authoriza tion(s) No Information Social History Type Description Quantity Date Captured Comments Sex Female Smoking Status No Information Chief Complaint And Reason For Visit No [...]
--- OUTSIDE RECORDS SUMMARY | 2024-05-03 17:53 | XMS_ITS | Clinical Summary ---
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
--- OUTSIDE RECORDS SUMMARY | 2024-05-03 17:53 | XMS_ITS | Encounter Summary ---
Author Organization [facility] Address [address] [place] [address] Care Team Providers Care Commercial Sales Manager Name Role Phone Gus Espinosa MD Unavailable [phone] Greg Atkins MD Unavailable [phone] Maricruz Bergman NP Unavailable Unavaila ble Alexandrea Kelly MD Primary Care Provider [phone] Ashwin Paulino MD Unavailable [phone] Reason for Visit * Reason Onset Date Comments Altered Mental Status 05/03/2024 Encounter Details Date Type Department Care Team (Late st Contact Info) Description 05/03/2024 Telephone [facility] Family Medicine [facility] [address] [place] [address] Alexandrea Kelly MD [address] [place] [address] Altered Mental Status Social History Tobacco Use Types Packs/Day Years [...] Sex Assigned at Female 05/03/2024 12:48 PM HYDROMETER TESTER Legal Sex Female 5:07 PM CDT Gender Identity Female 04/06/2021 3:36 PM HYDROMETER TESTER Sexual Orientation Not on file documented as of this encounter Progress Notes * Alexandrea Kelly MD - 05/03/2024 5:09 PM CST Called pt regarding Dr. James's note. Spoke with pt and pt's . Recommended presentation to nearest ER for w/u of AMS. Pt and v/u. states due to pt's memory worsening, would be bestif results/information be called to his phone number as well ([phone]). Changed pt's primary contact number to 's number, pt's mobile number still active and available in chart. states they will go to [facility] given it is closest to their house. OMETER TESTER * Alexandrea Kelly MD - 05/03/2024 5:08 PM CST ----- Message from Dr. Greg Atkins sent at 05/03/2024 3:36 PM HYDROMETER TESTER ----- Hi Dr. Kelly, given this decline in the last few months, I would strongly recommend that she go to the ER, and get it checked out. She will need infectious workup, metabolic workup, and a CAT scan. ----- Message ----- From: Alexandrea Kelly MD Sent: 05/03/2024 2:44 PM HYDROMETER TESTER To: Greg Atkins MD; # Hi Dr. James, I just saw Misael today, and I noticed that she wasn't interacting appropriately. She had echolalia,and would often blurt out whatever she was thinking regardless if I or her were talking. I saw she has mild cognitive impairment, but she was also asking me the exact same question that I hadanswered maybe 2-3 minutes prior. This was my first time meeting her, so I asked Jenny Gerber, our medicare wellness nurse, how the pt was when she saw her in February. Jenny said she behaved appropriately then. I'm not sure if how she acted today is from the pt drinking, since she says she drinks2-5 beers per day, or worsening of her memory/dementia. I am concerned about her, so I wanted to reach out to see if you wanted to see her again sooner or if there's anything I'd be able to help her with in the meantime.Thanks! OMETER TESTER documented in this encounter Plan of Treatment Upcoming Encounters Date Type Department Care Team (Late st Contact Info) Description 10/16/2024 1:20 PM CDT [facility] [address] [facility] [place], [address] [place] [address] Greg Atkins MD [address] [place] [address] 10/31/2024 9:40 AM CDT Office Visit [address] [address] Alexandrea Kelly MD [address] [place] [address] 02/28/2025 10:00 AM HYDROMETER TESTER Office Visit [address] [address] Alexandrea Kelly MD [address] [place] [phone] documented as of this encounter Visit Diagnoses Not on filedocumented in this encounter Additional Health Concerns Assessment Noted Time PHQ-9 Depression Total Score: 6 05/03/19 25 1:00 PM HYDROMETER TESTER documented as of this encounter Care Teams Commercial Sales Manager Relationship Specialty Start Date End Date Alexandrea Kelly MD 1 [place] [address] PCP - General FAMILY PRACTICE 02/22/24 Gus Espinosa MD [address] [place] [address] GASTROENTEROLOGY 02/27/19 Greg Atkins MD [address] [place] [address] Physician NEUROMUSCULOSKELETAL MEDICINE 08/17/22 Maricruz Bergman NP [address] [place] [address] Nurse Practitioner NEUROLOGY 02/17/23 Ashwin Paulino MD 1 [place] [address] SURGERY 02/23/24 documented as of this encounter
--- OUTSIDE RECORDS SUMMARY | 2024-05-03 17:53 | XMS_ITS ---
Author Organization [facility] Address [address] [facility] [address] [place] [address] Care Team Providers Care Cadd Drafter Name Role Phone zzzzMigration, zzzzProvider Unavailable Unav ailable REASON FOR VISIT [facility] Encounters Encounter Location Date Provider Diagnosis [facility] [address] [facility] [address] [place] [address] 01/08/2023 zzzzProvider zzzzMigration Plan Of Treatment Medication Medication Name Sig Start Date Stop Date Notes predniSONE 20 MG take 3 tablets by or al route daily for 5 days Oral 1 for 5 07/28/2015 08/02/2015 Progress Notes * Huey REISOB: [birth year] (68 yo F)Acc No.[id number]:01/08/2023 Patient: Konstantin Mary BRO :1955 A ge:67 Y S ex:Female Address:[address] [place] [address], [address] * Refills Stop predniSONE Tablet, 20 MG, Oral, 15, take 3 tablets by oral route daily for 5 days, 1, 5 Subjective: * Chief Complaints: * E MR-Isael * Medical History: * Surgical History: * Hospitalization/Major Diagno stic Procedure: * Medications: Objective: * Vitals: * Physical Examination: Assessment: Plan: * Treatment: * Procedure Codes: * * Date:
--- OUTSIDE RECORDS SUMMARY | 2024-05-03 17:53 | XMS_ITS | Encounter Summary ---
Author Organization [facility] Address [address] [place] [address] Care Team Providers Care Oncologist Name Role Phone Gus Espinosa MD Unavailable [phone] Greg Atkins MD Unavailable [phone] Maricruz Bergman NP Unavailable Unavaila ble Alexandrea Kelly MD Primary Care Provider [phone] Ashwin Paulino MD Unavailable [phone] Reason for Referral * Consultation (Routine) - New Request Specialty Diagnoses / Procedures Referred By Vj fink Referred To Contact GASTROENTEROLOGY Diagnoses Nausea and vomiting, unspecified vomiting type Early satiety Alexandrea Kelly MD [address] [place] [address] Phone: tel: fax: Referral ID Status Reason Start Date Expiration Date V isits Requested Visits Authorized [id number] New Request 05/03/2024 05/03/2025 1 1 Scheduling Instructions Please send to [facility] P CLASSIFIER * Surgical (Routine) - New Request Specialty Diagnoses / Procedures Referred By Vj fink Referred To Contact HAND SURGERY Diagnoses Left hand pain Procedures OFFICE/OUTPATIENT NEW LOW MDM 30-44 MINUTES OFFICE/OUTPT VISIT,NEW,LEVL IV OFFICE/OUTPT VISIT,NEW,LEVL V OFFICE/OUTPT VISIT,EST,LEVL III OFFICE/OUTPT VISIT,EST,LEVL IV OFFICE/OUTPT VISIT,EST,LEVL V Alexandrea Kelly MD [address] [place] [address] Phone: tel: fax: Referral ID Status Reason Start Date Expiration Date V isits Requested Visits Authorized [id number] New Request 05/03/2024 05/03/2025 1 1 Scheduling Instructions Please send to Dr. Amy Guzman (plastics/hand) with [facility] Address [address] [place] [address] [address], [place] [id number] P CLASSIFIER Reason for Visit * Reason Comments Establish Care 11/01/2023 [facility] Fall X 1 month ago while getting into car injured rt hand Encounter Details Date Type Department Care Team (Late st Contact Info) Description 05/03/2024 1:00 PM STAMP CLASSIFIER Office Visit [facility] Family Medicine [address] [address] Alexandrea Kelly MD [address] [place] [address] Establish Care (11/01/2023 [facility]); Fall (X 1 month ago while getting into car injured rt hand) Social History Tobacco Use Types Packs/Day Years [...] Sex Assigned at Female 05/03/2024 12:48 PM STAMP CLASSIFIER Legal Sex Female 5:07 PM CDT Gender Identity Female 04/06/2021 3:36 PM STAMP CLASSIFIER Sexual Orientation Not on file documented as of this encounter Last Filed Vital Signs Vital Sign Reading Time Taken Comments Blood Pressure 115/74 05/03/2024 1:03 PM STAMP CLASSIFIER Pulse 82 05/03/2024 1:03 PM STAMP CLASSIFIER Temperature 36.9 C (98.5 F) 05/03/2024 1:03 PM STAMP CLASSIFIER Respiratory Rate 12 05/03/2024 1:03 PM STAMP CLASSIFIER Oxygen Saturation 95% 05/03/2024 1:03 PM STAMP CLASSIFIER Inhaled Oxygen Concentration - - Weight 91.5 kg (201 lb 12.8 oz) 05/03/2024 1:03 PM STAMP CLASSIFIER Height 162.6 cm (5' 4 ) 05/03/2024 1:03 PM STAMP CLASSIFIER Body Mass Index 34.64 05/03/2024 1:03 PM STAMP CLASSIFIER documented in this encounter Plan of Treatment Upcoming Encounters Date Type Department Care Team (Late st Contact Info) Description 10/16/2024 1:20 PM CDT Office Visit [facility] [address] [facility], [address] [place] [address] Greg Atkins MD 3 [place] [address] 10/31/2024 9:40 AM CDT Office Visit [address] [address] Alexandrea Kelly MD [address] [place] [address] 02/28/2025 10:00 AM STAMP CLASSIFIER Office Visit [address] [address] [place] [address] [place] [address] Scheduled Orders Name Type Priority Associated Diagnoses Orde r Schedule XR WRIST LT 2V Imaging Routine Left hand pain Expected: 05/03/2024, Expires: 05/03/2025 XR HAND LT 3V Imaging Routine Left hand pain Expected: 05/03/2024, Expires: 05/03/2025 Scheduled Referrals Name Type Priority Associated Diagnoses Orde r Schedule Ambulatory referral to Hand Surgery Referral Routine Left hand pain Ordered: 05/03/2024 Ambulatory referral to Gastroenterology (OTHER) Referral Routine Nausea and vomiting, unspecified vomiting type Early satiety Ordered: 05/03/2024 documented as of this encounter Visit Diagnoses Diagnosis Candidal intertrigo- Primary Candidiasis of skin and nails Left hand pain Pain in limb Essential hypertension Unspecified essential hypertension Mixed hyperlipidemia Nausea and vomiting, unspecified vomiting type Early satiety documented in this encounter Additional Health Concerns Assessment Noted Time PHQ-9 Depression Total Score: 6 05/03/19 25 1:00 PM STAMP CLASSIFIER documented as of this encounter Care Teams Oncologist Relationship Specialty Start Date End Date Alexandrea Kelly MD 1 [place] [address] PCP - General FAMILY PRACTICE 02/22/24 Gus Espinosa MD [address] [place] [address] GASTROENTEROLOGY 02/27/19 Greg Atkins MD 3 [place] [address] Physician NEUROMUSCULOSKELETAL MEDICINE 08/17/22 Maricruz Bergman NP [address] [place] [address] Nurse Practitioner NEUROLOGY 02/17/23 Ashwin Paulino MD [address] [place] [address] SURGERY 02/23/24 documented as of this encounter
--- OUTSIDE RECORDS SUMMARY | 2024-05-03 17:53 | XMS_ITS | Patient Health Record ---
Author Organization [facility] Address [address] [facility] [address] [place] [address] Support Name Relationship Address Phone Mary Reis Guarantor Unknown [phone] Allergies No Known Allergies Reason For Referral No Information Medications Medication SIG (Take, Route, Frequency, Duration) Notes Start Date End Date Status Vitamin Z15-Bsgdg Acid 500-400 MCG Oral Active traMADol HCl [...] still feeling anxious Oral 3 01/20/2016 Active Problems Problem Type SNOMED Code ICD Code Onset Dates Problem Status W/U Status Risk Notes Problem Adhesive capsulitis of right shoulder (34917650435872 9) Adhesive capsulitis of right shoulder (M75.01) 07/28/2015 Active confirmed Problem Calcific tendinitis of left shoulder (35792850362758 8) Calcific tendinitis of left shoulder (M75.32) 07/28/2015 Active confirmed Plan Of Treatment No Information Insurance Providers Payer Name Payer Address Payer Phone Subscriber Number Group Number Insured Name Patient Relationship to Insured Coverage Start Date Coverage End Date [facility] [employer] [address] [place] [id number] ElizabethMary roamno Self - patient is the insured 6 [facility] [address] [place] [address] [id number] Mary Reis Self - patient is the insured 6 Medical (General) History Surgical History Surgery Date(Month/Year) * NO SURGERIES; 2015-06-13
[2024-05-03 17:57] VITALS: BP 127/75; PULSE 86; RESP 17; TEMP 36.6; O2SAT 99
--- NOTE | 2024-05-03 18:42 | ED.GENADULT ---
HPI - General Adult General Chief complaint: Head Injury <Ruth Moore July OPERATIONS LIAISON - Last Filed: 05/03/24 18:54> Stated complaint: GLF 2D AGO HEADACHE <Ruth Moore July OPERATIONS LIAISON - Last Filed: 05/03/24 18:54> Time Seen by Provider: 05/03/24 18:42 <Ruth Moore July, OPERATIONS LIAISON - Last Filed: 05/03/24 18:54> Focused HPI: Mary Reis is a 68 y/o female with PMhx of memory issues and follows up with Neurologist Dr. Gomez regarding this. Today she saw her PCP for a routine visit. states that 2 weeks ago she was having headaches/ nausea/vomiting/ no appetite and did not eat much over the 5 days, states that these symptoms are improving and she is becoming more to her physical baseline. states that she had a fall about a month ago and came here and he thinks she had a scan of her brain and everything was fine. He states that her memory issues have become worse over the past couple weeks and her PCP today consulted with her Neurologist today and they wanted her to be sent to the ER to have a repeat CT of her brain/ blood work to make sure she does not have an infection. GENERAL: Well-appearing, well-nourished, and in no acute distress. HEAD: Normocephalic, atraumatic. CHEST: Clear to auscultation. ?No respiratory distress. HEART: Regular rate and rhythm.? NEURO: ?Alert and oriented x3. Patient screened in triage and initial orders placed.? ?Additional care and disposition to be based upon?diagnostic testing and treatment. <Ruth Moore July, OPERATIONS LIAISON - Last Filed: 05/03/24 18:54> History of Present Illness HPI narrative: Agree with the HPI above. Patient herself has no complaints at this time states that she feels fine but her primary doctor center in for workup. She has no concerns at this time she is awake alert oriented. Under no neurological deficits or complaints. Interactive and normal vital signs in triage. <Jimi Gray MD - Last Filed: 05/04/24 06:11> Related Data Home medications: Home Medications ?Medication ?Instructions ?Recorded ?Confirmed ?Last Taken ?Type lisinopril 10 mg tablet 10 mg PO DAILY 11/19/19 03/22/24 Unknown History escitalopram oxalate 10 mg tablet 10 mg PO DAILY 07/17/21 03/22/24 Unknown History ezetimibe 10 mg tablet 10 mg PO DAILY 07/17/21 03/22/24 Unknown History donepezil 5 mg tablet 5 mg PO .QD 03/22/24 03/22/24 Unknown History <Ruth Moore July,N - Last Filed: 05/03/24 18:54> Allergies/adverse reactions: Allergies Allergy/AdvReac Type Severity Reaction Status Date / Time No Known Allergies Allergy Verified 05/03/24 17:51 <Ruth Moore July,N - Last Filed: 05/03/24 18:54> Review of Systems Review of Systems: As reviewed above <Jimi Gray MD - Last Filed: 05/04/24 06:11> PMFSH Past Medical History Medical History: Medical History UTI (urinary tract infection) <Ruth Moore July, - Last Filed: 05/03/24 18:54> Social History Social History: Social History Smoking end date: 03/21/95 Alcohol intake: current <Ruth Moore July,N - Last Filed: 05/03/24 18:54> Exam Narrative: GENERAL: [Well-appearing, well-nourished, and in no acute distress.] HEAD: [Normocephalic, atraumatic.] EYES: [PERRLA and EOMI.] ENT: Nares clear, no rhinorrhea or epistaxis. Mucous membranes moist. NECK: Supple. CHEST: [Clear to auscultation. No respiratory distress.] HEART: [Regular rate and rhythm]. No murmur heard. [Normal peripheral pulses.] ABDOMEN: [Soft, nondistended], [nontender], [No rigidity or guarding] EXTREMITIES: Normal range of motion. [No edema.] SKIN: Warm, dry, no rash. NEURO: [No focal deficits]. Alert and oriented [x3.] PSYCH: [Normal mood and affect.] <Jimi Gray MD - Last Filed: 05/04/24 06:11> Course Vital Signs Vital signs: Vital Signs Temperature 36.6 C 05/03/24 17:57 Pulse Rate 86 05/03/24 17:57 Respiratory Rate 17 05/03/24 17:57 Blood Pressure 127/75 05/03/24 17:57 Pulse Oximetry 99 05/03/24 17:57 Temperature 36.6 C 05/03/24 17:57 Pulse Rate 71 05/03/24 23:16 Respiratory Rate 16 05/03/24 23:16 Blood Pressure 142/80 H 05/03/24 23:16 Pulse Oximetry 99 05/03/24 23:16 <Ruth Miranda APRN - Last Filed: 05/03/24 18:54> Vital Signs Temperature 36.6 C 05/03/24 17:57 Pulse Rate 86 05/03/24 17:57 Respiratory Rate 17 05/03/24 17:57 Blood Pressure 127/75 05/03/24 17:57 Pulse Oximetry 99 05/03/24 17:57 Temperature 36.6 C 05/03/24 17:57 Pulse Rate 71 05/03/24 23:16 Respiratory Rate 16 05/03/24 23:16 Blood Pressure 142/80 H 05/03/24 23:16 Pulse Oximetry 99 05/03/24 23:16 <Jimi Gray MD - Last Filed: 05/04/24 06:11> Medical Decision Making MDM Narrative Medical decision making narrative: 68-year-old female presenting to the emergency depart with a chief complaint of being sent in by her PCP and neurologist. They wants to obtain CT head in workup to make sure that she does not have any kind of intracranial pathology such as a brain bleed or any infectious pathology given that she fell several weeks ago and has been having some intermittent memory issues. Her neurologist initially thought she could just be having early onset potential dementia or cognitive impairment but they want repeat imaging. Patient herself has no complaints whatsoever, states that she is feeling fine has no headache or vision changes, nausea, vomiting. She states she recently got over the flu but has been feeling well since then. She has normal vital signs in triage, no tachycardia, fever, hypoxia blood pressure concerns. She has an unremarkable neurological assessment with normal strength and sensation, no ataxia, and relates without assistance. Is well put together, alert oriented, not in any distress. Workup ordered including a CT head, CBC, CMP, lipase, chest x-ray. COVID flu and RSV swab was obtained. Workup shows no leukocytosis, no anemia, normal platelet count. Normal electrolytes, normal renal function panel. Normal glucose, LFTs just above the upper limit of normal but stable from her baseline levels. Negative lipase. Negative viral panel swabs. Head CT without any acute intracranial findings. Chest x-ray with no focal infiltrate or effusion. <Jimi Gray MD - Last Filed: 05/04/24 06:11> Medical Records Medical records reviewed: Yes I reviewed the external patient's medical records. <Jimi Gray MD - Last Filed: 05/04/24 06:11> Vital Signs Vital Signs: Vital Signs Temperature 36.6 C 05/03/24 17:57 Pulse Rate 86 05/03/24 17:57 Respiratory Rate 17 05/03/24 17:57 Blood Pressure 127/75 05/03/24 17:57 Pulse Oximetry 99 05/03/24 17:57 Temperature 36.6 C 05/03/24 17:57 Pulse Rate 71 05/03/24 23:16 Respiratory Rate 16 05/03/24 23:16 Blood Pressure 142/80 H 05/03/24 23:16 Pulse Oximetry 99 05/03/24 23:16 <Ruth Miranda APRN - Last Filed: 05/03/24 18:54> Vital Signs Temperature 36.6 C 05/03/24 17:57 Pulse Rate 86 05/03/24 17:57 Respiratory Rate 17 05/03/24 17:57 Blood Pressure 127/75 05/03/24 17:57 Pulse Oximetry 99 05/03/24 17:57 Temperature 36.6 C 05/03/24 17:57 Pulse Rate 71 05/03/24 23:16 Respiratory Rate 16 05/03/24 23:16 Blood Pressure 142/80 H 05/03/24 23:16 Pulse Oximetry 99 05/03/24 23:16 <Jimi Gray MD - Last Filed: 05/04/24 06:11> Lab Data Lab results reviewed: Yes I reviewed the patient's lab results. <Jimi Gray MD - Last Filed: 05/04/24 06:11> Result diagrams: 05/03/24 21:55 05/03/24 21:55 <Ruth Miranda APRN - Last Filed: 05/03/24 18:54> Labs: Lab Results 05/03/24 Range/Units 21:55 WBC 7.1 (4.5-10.0) K/mm3 RBC 5.04 (4.2-5.4) M/mm3 Hgb 15.3 H (12.0-15.0) g/dL Hct 45.7 (37.0-47.0) % MCV 90.7 (80-100) fl MCH 30.4 (26-34) pg MCHC 33.5 (32-36) g/dl RDW 13.4 (11.5-14.5) % Plt Count 277 D (150-375) k/mm3 MPV 10.0 (7.4-10.4) fl Immature Gran % (Auto) 0.4 (0-0.5) % Neut % (Auto) 53.6 (45.5-73.1) % Lymph % (Auto) 34.9 (18.3-44.2) % [place] % (Auto) 9.9 H (2.6-8.5) % Eos % (Auto) 0.8 (0-4.4) % Baso % (Auto) 0.4 (0.2-1.2) % Lymph # (Auto) 2.47 (0.9-3.2) K/mm3 [place] # (Auto) 0.7 H (0.1-0.6) K/mm3 Eos # (Auto) 0.1 (0-0.3) K/mm3 Baso # (Auto) 0.0 (0.0-0.1) K/mm3 Abs Immat Gran (auto) 0.03 (0.00-0.031) K/mm3 Absolute Neuts (auto) 3.8 (1.3-6.7) K/mm3 Absolute Nucleated RBC 0.000 (0.0-0.012) K/mm3 Nucleated RBC % 0.0 (0.0-0.2) % Sodium 145 (137-145) mmol/L Potassium 3.5 (3.4-5.0) mmol/L Chloride 102 (98-107) mmol/L Carbon Dioxide 28 (22-30) mmol/L Anion Gap 15 H (4-12) mmol/L BUN 11 (7-17) mg/dL Creatinine 0.54 L (0.7-1.0) mg/dL Estim Creat Clear Calc 93 ml/min Estimated GFR > 60 (59 - ) Glucose 103 (65-110) mg/dL Calcium 9.7 (8.4-10.2) mg/dL Total Bilirubin 0.9 (0.2-1.3) mg/dL AST 50 H (14-36) U/L ALT 70 H (6-35) U/L Alkaline Phosphatase 120 (38-126) U/L Total Protein 8.0 (6.3-8.2) g/dL Albumin 4.5 (3.5-5.1) g/dL Lipase 106 (23-300) U/L Influenza A (RT-PCR) Negative (Negative) Influenza B (RT-PCR) Negative (Negative) RSV (RT-PCR) Negative (Negative) SARS-CoV-2 RNA (RT-PCR) Negative (Negative) <Ruth Miranda, OPERATIONS LIAISON - Last Filed: 05/03/24 18:54> Lab Results 05/03/24 Range/Units 21:55 WBC 7.1 (4.5-10.0) K/mm3 RBC 5.04 (4.2-5.4) M/mm3 Hgb 15.3 H (12.0-15.0) g/dL Hct 45.7 (37.0-47.0) % MCV 90.7 (80-100) fl MCH 30.4 (26-34) pg MCHC 33.5 (32-36) g/dl RDW 13.4 (11.5-14.5) % Plt Count 277 D (150-375) k/mm3 MPV 10.0 (7.4-10.4) fl Immature Gran % (Auto) 0.4 (0-0.5) % Neut % (Auto) 53.6 (45.5-73.1) % Lymph % (Auto) 34.9 (18.3-44.2) % [place] % (Auto) 9.9 H (2.6-8.5) % Eos % (Auto) 0.8 (0-4.4) % Baso % (Auto) 0.4 (0.2-1.2) % Lymph # (Auto) 2.47 (0.9-3.2) K/mm3 [place] # (Auto) 0.7 H (0.1-0.6) K/mm3 Eos # (Auto) 0.1 (0-0.3) K/mm3 Baso # (Auto) 0.0 (0.0-0.1) K/mm3 Abs Immat Gran (auto) 0.03 (0.00-0.031) K/mm3 Absolute Neuts (auto) 3.8 (1.3-6.7) K/mm3 Absolute Nucleated RBC 0.000 (0.0-0.012) K/mm3 Nucleated RBC % 0.0 (0.0-0.2) % Sodium 145 (137-145) mmol/L Potassium 3.5 (3.4-5.0) mmol/L Chloride 102 (98-107) mmol/L Carbon Dioxide 28 (22-30) mmol/L Anion Gap 15 H (4-12) mmol/L BUN 11 (7-17) mg/dL Creatinine 0.54 L (0.7-1.0) mg/dL Estim Creat Clear Calc 93 ml/min Estimated GFR > 60 (59 - ) Glucose 103 (65-110) mg/dL Calcium 9.7 (8.4-10.2) mg/dL Total Bilirubin 0.9 (0.2-1.3) mg/dL AST 50 H (14-36) U/L ALT 70 H (6-35) U/L Alkaline Phosphatase 120 (38-126) U/L Total Protein 8.0 (6.3-8.2) g/dL Albumin 4.5 (3.5-5.1) g/dL Lipase 106 (23-300) U/L Influenza A (RT-PCR) Negative (Negative) Influenza B (RT-PCR) Negative (Negative) RSV (RT-PCR) Negative (Negative) SARS-CoV-2 RNA (RT-PCR) Negative (Negative) <Jimi Gray MD - Last Filed: 05/04/24 06:11> Imaging Data Attestation: I personally reviewed and interpreted this imaging study as follows: <Jimi Gray MD - Last Filed: 05/04/24 06:11> My impression: Impressions Chest X-Ray 05/03/24 19:38 IMPRESSION: No focal infiltrate or effusion. Head CT 05/03/24 20:43 Impression: No acute intracranial hemorrhage or suspicious mass effect. Inflammatory sinus disease. <Jimi Gray MD - Last Filed: 05/04/24 06:11> Discharge Plan Discharge Clinical Impression: Closed head injury, Normal exam <Ruth Miranda, OPERATIONS LIAISON - Last Filed: 05/03/24 18:54> Patient Disposition: Home, Self-Care <Ruth Miranda, OPERATIONS LIAISON - Last Filed: 05/03/24 18:54> Condition: Stable <Ruth Moore July, OPERATIONS LIAISON - Last Filed: 05/03/24 18:54> Instructions: Antibiotic Form, Head Injury (ED) <Ruth Moore July, OPERATIONS LIAISON - Last Filed: 05/03/24 18:54> Additional Instructions: Follow-up with regular doctor, no acute injuries or concerning findings on your workup with imaging or laboratory studies today. Return with any new or emergent concerns. <Ruth Moore July, OPERATIONS LIAISON - Last Filed: 05/03/24 18:54> Patient Language: Citizen Of [place] <Ruth Moore July, OPERATIONS LIAISON - Last Filed: 05/03/24 18:54> Prescriptions: No Action lisinopril 10 mg tablet 10 mg PO DAILY escitalopram oxalate 10 mg tablet 10 mg PO DAILY ezetimibe 10 mg tablet 10 mg PO DAILY polymyxin B sulf-trimethoprim 10,000 unit- 1 mg/mL drops 1 drp RIGHT EYE Q3H 7 Days Qty: 10 0RF Rx Instructions: while awake; do not exceed 6 doses in 24 hours donepezil 5 mg tablet 5 mg PO .QD doxycycline monohydrate 100 mg tablet 100 mg PO BID 5 Days Qty: 10 0RF benzonatate 100 mg capsule 100 mg PO BID PRN (Reason: cough) Qty: 14 0RF methylprednisolone [Medrol (Antoine)] 4 mg tablets,dose pack See Rx Instructions .ROUTE .COMPLEX Qty: 21 0RF Rx Instructions: orally per package directions albuterol sulfate 90 mcg/actuation HFA aerosol inhaler 2 puff inhalation QID PRN (Reason: shortness of breath or wheezing) Qty: 6.7 0RF (DME) Aerochamber MV Spacer See Rx Instructions .Route Qty: 1 0RF Rx Instructions: As directed cephalexin 500 mg capsule 500 mg PO Q8H 7 Days Qty: 21 0RF <Ruth Miranda APRN - Last Filed: 05/03/24 18:54> Follow-up/Referrals: UNKNOWN,DOCTOR [Primary Care Provider] - <Ruth Miranda APRN - Last Filed: 05/03/24 18:54> Time of Disposition: 23:13 <Ruth Miranda APRN - Last Filed: 05/03/24 18:54> 23:13 <Jimi Gray MD - Last Filed: 05/04/24 06:11>
--- OUTSIDE RECORDS SUMMARY | 2024-05-03 21:24 | XMS_ITS | Continuity of Care Document ---
Author Organization [facility] Address [address] [place] [address] Phone Care Team Providers Care Race Starter Name Role Phone Ashly Woodward MD Unavailable [...] Diagnoses Date Provider Providers Copied on Encounter [employer], [address], [place], [place], [id number] , tel: [phone] [place] No Information July-0 8-201 7 [facility]. [address], [address], . tel: [phone] [employer], [address], [place], [place], [id number] , tel: [phone] [place] No Information May-0 9-201 6 [facility]. [address], [address], [place]. tel: [phone] [employer], [address], [place], [place], [id number] , tel: [phone] [place] Elevated cholesterol 6 [facility] [address], [facility], . tel: [phone] Referring Provider: Ashly Woodward, [address] [place] [address], [facility]. tel:[phone] [employer], [address], [place], [place], [id number] , tel: [phone] [place] Elevated cholesterolElevated liver enzymes 6 [facility] [address], [facility], . tel: [phone] [employer], [address], [place], [place], [id number] , tel: [phone] [place] Upper respiratory tract infection, unspecified type 5 [facility] [address], [facility], . tel: [phone] Referring Provider: Ashly Woodward, [address] [place] [address], [facility]. tel:[phone] [employer], [address], [place], [place], [address] , tel: [phone] [place] Routine health maintenanceEncounter for screening colonoscopy 5 [facility] [address], [facility], . tel: [phone] Referring Provider: Ashly Woodward, [address] [place] [address], [facility]. tel:[phone] Family History Family Member Type Diagnosis Age At Onset Mother Problem (finding) hypertension Payers Payer name Insurance type Covered green party ID Ronnell rincon(s) [facility] [id number] Social History Type Description Quantity Date Captured [...]
--- OUTSIDE RECORDS SUMMARY | 2024-05-03 21:24 | XMS_ITS | Clinical Summary ---
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
--- OUTSIDE RECORDS SUMMARY | 2024-05-03 21:24 | XMS_ITS | Encounter Summary ---
Author Organization [facility] Address [address] [place] [address] Care Team Providers Care Drupal Developer Name Role Phone Gus Espinosa MD Unavailable [phone] Greg Atkins MD Unavailable [phone] Maricruz Bergman NP Unavailable Unavaila ble Alexandrea Kelly MD Primary Care Provider [phone] Ashwin Paulino MD Unavailable [phone] Reason for Visit * Reason Onset Date Comments Altered Mental Status 05/03/2024 Encounter Details Date Type Department Care Team (Late st Contact Info) Description 05/03/2024 Telephone [facility] Family Medicine [facility] [address] [place] [address] Alexandrea Kelly MD [address] [place] [address] Altered Mental Status Social History [...] Sex Assigned at Female 05/03/2024 12:48 PM SHANK CARRIER Legal Sex Female 5:07 PM CDT Gender Identity Female 04/06/2021 3:36 PM SHANK CARRIER Sexual Orientation Not on file documented as of this encounter Progress Notes * Alexandrea Kelly MD - 05/03/2024 5:09 PM CST Called pt regarding Dr. James's note. Spoke with pt and pt's . Recommended presentation to nearest ER for w/u of AMS. Pt and v/u. states due to pt's memory worsening, would be bestif results/information be called to his phone number as well ([phone]). Changed pt's primary contact number to 's number, pt's mobile number still active and available in chart. states they will go to [place] [facility] given it is closest to their house. K CARRIER * Alexandrea Kelly MD - 05/03/2024 5:08 PM CST ----- Message from Dr. Greg Atkins sent at 05/03/2024 3:36 PM SHANK CARRIER ----- Hi Dr. Kelly, given this decline in the last few months, I would strongly recommend that she go to the ER, and get it checked out. She will need infectious workup, metabolic workup, and a CAT scan. ----- Message ----- From: Alexandrea Kelly MD Sent: 05/03/2024 2:44 PM SHANK CARRIER To: Greg Atkins MD; # Hi Dr. [...] to help her with in the meantime.Thanks! K CARRIER documented in this encounter Plan of Treatment Upcoming Encounters Date Type Department Care Team (Late st Contact Info) Description 10/16/2024 1:20 PM CDT [facility] [address] [facility], [address] [place] [address] Greg Atkins MD [address] [place] [address] 10/31/2024 9:40 AM CDT Office Visit [address] [address] Alexandrea Kelly MD [address] [place] [address] 02/28/2025 10:00 AM SHANK CARRIER Office Visit [address] [address] Alexandrea Kelly MD [address] [place] [phone] documented as of this encounter Visit Diagnoses Not on filedocumented in this encounter Additional Health Concerns Assessment Noted Time PHQ-9 Depression Total Score: 6 05/03/19 25 1:00 PM SHANK CARRIER documented as of this encounter Care Teams Drupal Developer Relationship Specialty Start Date End Date Alexandrea Kelly MD [address] [place] [address] PCP - General FAMILY PRACTICE 02/22/24 Gus Espinosa MD [address] [place] [address] GASTROENTEROLOGY 02/27/19 Greg Atkins MD [address] [place] [address] Physician NEUROMUSCULOSKELETAL MEDICINE 08/17/22 Maricruz Bergman NP [address] [place] [address] Nurse Practitioner NEUROLOGY 02/17/23 Ashwin Paulino MD [address] [place] [address] SURGERY 02/23/24 documented as of this encounter
--- OUTSIDE RECORDS SUMMARY | 2024-05-03 21:24 | XMS_ITS | Continuity of Care Document ---
Author Organization [facility] Address [address] [place] [address] [place] [phone] Phone Care Team Providers Care Painter Helper Spray Name Role Phone Daryl Ware Unavailable Unavailable [...] Diagnoses Date Provider Providers Copied on Encounter [facility] [address], [place], [place], [id number], [place] tel:[phone] [place] No Information 4 Clayton Brito. [address] [facility], [address], [place], [address], [place]. tel:[phone] Referring Provider: Mellissa Epps [address], [place], [address]. tel:[phone] [facility], [place], [place], [id number], tel:[phone] [place] No Information Apr-0 2-201 4 Muehl Daryl. [address] [place] [address], [address], [place], [place], [facility], . tel: [phone] Referring Provider: Mellissa Eppsson [address], [place], [address]. tel:[phone] [facility] [address], [place], [place], [id number], tel:[phone] [place] No Information Mar-1 9-201 4 Muehl Daryl. [address] [place] [address], [address], [place], [facility], [place]. tel: [phone] Referring Provider: Mellissa Eppsson [address], [place], [address]. tel:[phone] [facility] [address], [place], [place], [id number], tel:[phone] [place] No Information Mar-1 2-201 4 Muehl Daryl. [address] [place] [address], [address], [place], [facility], [place]. tel: [phone] Referring Provider: Mellissa Epps [address], [place], [address]. tel:[phone] [facility] [address], [place], [place], [id number], tel:[phone] [place] No Information Mar-0 5-201 4 Muehl Daryl. [address] [place] [address], [address], [place], [facility], [place]. tel: [phone] Referring Provider: Mellissa Epp[address], [place], [address]. tel:[phone] [facility] [address], [place], [place], [id number], tel:[phone] [place] No Information 4 Muehl Daryl. [address] [place] [address], [address], [place], [address], [place]. tel: [phone] Referring Provider: Mellissa E[address], [place], [address]. tel:[phone] [address], [place], [place], [id number], [place] tel:[phone] [place] No Information 4 Muehl Daryl. [address] [place] [address], [address], [place], [address], [place]. tel: [phone] Referring Provider: Mellissa [address], [place], [address]. tel:[phone] [address], [place], [place], [id number], [place] tel:[phone] [place] No Information 4 Muehl Daryl. [address] [place] [address], [address], [place], [address], [place]. tel: [phone] Referring Provider: Mellissa [address], [place], [address]. tel:[phone], [place], [id number], [place] tel:[phone] [place] No Information 4 Muehl Daryl. [address] [place] [address], [address], [place], [address], [place]. tel:[phone] Referring Provider: Mellissa [address], [place], [address]. tel:[phone], [place], [place], [id number], [place] tel:[phone] [place] No Information 4 Muehl Daryl. [address] [place] [address], [address], [place], [address], [place]. tel: [phone] Referring Provider: Mellissa [address], [place], [address]. tel:[phone] [address], [place], [place], [id number], [place] tel:[phone] [place] No Information Leon-2 0-201 4 Muehl Daryl. [address] [place] [address], [address], [place], [facility], [place]. tel: [phone] Referring Provider: Mellissa E[address], [place], [address]. tel:[phone] [place] [address], [place], [place], [id number], [place] tel:[phone] [place] No Information Dec-2 7-201 3 Muehl Daryl. [address] [place] [address], [address], [place], [facility], [place]. tel: [phone] Referring Provider: Mellissa E[address], [place], [address]. tel:[phone] [address], [place], [place], [id number], [place] tel:[phone] [place] No Information Dec-2 3-201 3 Muehl Daryl. [address] [place] [address], [address], [place], [address], [place]. tel: [phone] Referring Provider: Mellissa [address], [place], [address]. tel:[phone], [place], [place], [id number], [place] tel:[phone] [place] No Information Dec-1 6-201 3 Muehl Daryl. [address] [place] [address], [address], [place], [address], [place]. tel: [phone] Referring Provider: Mellissa [address], [place], [address]. tel:[phone] [address], [place], [place], [id number], tel:[phone] [place] No Information Dec-1 3-201 3 Muehl Daryl. [address] [place] [address], [address], [place], [facility], [place]. tel:[phone] Referring Provider: Mellissa [address], [place], [address]. tel:[phone] [address], [place], [place], [id number], tel:[phone] [place] No Information Dec-1 1-201 3 Muehl Daryl. [address] [place] [address], [address], [place], [facility], [place]. tel:[phone] Referring Provider: Mellissa [address], [place], [address]. tel:[phone] [address], [place], [id number], tel:[phone] [place] No Information Dec-0 5-201 3 Muehl Daryl. [address] [place] [address], [address], [place], [address], [place]. tel:[phone] Referring Provider: Mellissa [address], [place], [address]. tel:[phone] [address], [id number], [place] tel:[phone] [place] No Information Dec-0 4-201 3 Muehl Daryl. [address] [place] [address], [address], [place], [address], [place]. tel:[phone] Referring Provider: Mellissa Epps [address], [place], [address]. tel:[phone] [facility], [address] [facility], [place], [place], [id number], [place] tel:[phone] [place] Pain in joint involving shoulder region 3 Elena Kumar. . Referring Provider: Mellissa Epps [address], [place], [address]. tel:[phone] Family History Family Member Type Diagnosis Age At Onset No Information Payers Payer name Insurance type Covered republican ID Authoriza tion(s) No Information Social History [...]
--- OUTSIDE RECORDS SUMMARY | 2024-05-03 21:24 | XMS_ITS | Referral Summary ---
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
--- OUTSIDE RECORDS SUMMARY | 2024-05-03 21:24 | XMS_ITS | Encounter Summary ---
Author Organization [facility] Address [address] [place] [address] Care Team Providers Care Loss Prevention Guard Name Role Phone Gus Espinosa MD Unavailable [phone] Greg Atkins MD Unavailable [phone] Maricruz Bergman NP Unavailable Unavaila ble Alexandrea Kelly MD Primary Care Provider [phone] Ashwin Paulino MD Unavailable [phone] Encounter Details Date Type Department Care [...] Sex Assigned at Female 05/03/2024 12:48 PM EQUIPMENT RECORDS SUPERVISOR Legal Sex Female 5:07 PM CDT Gender Identity Female 04/06/2021 3:36 PM EQUIPMENT RECORDS SUPERVISOR Sexual Orientation Not on file documented as of this encounter Plan of Treatment Upcoming Encounters Date Type Department Care Team (Late st Contact Info) Description 10/16/2024 1:20 PM CDT Office Visit [facility] [address] [facility], [address] [place] [address] Greg Atkins MD 3 [place] [address] 10/31/2024 9:40 AM CDT Office Visit [address] [address] Alexandrea Kelly MD [address] [place] [address] 02/28/2025 10:00 AM EQUIPMENT RECORDS SUPERVISOR Office Visit [address] [address] Alexandrea Kelly MD [address] [place] [address] documented as of this encounter Visit Diagnoses Not on filedocumented in this encounter Additional Health Concerns Assessment Noted Time PHQ-9 Depression Total Score: 6 05/03/19 25 1:00 PM EQUIPMENT RECORDS SUPERVISOR documented as of this encounter Care Teams Loss Prevention Guard Relationship Specialty Start Date End Date Alexandrea Kelly MD 1 [place] [address] PCP - General FAMILY PRACTICE 02/22/24 Gus Espinosa MD [address] [place] [address] GASTROENTEROLOGY 02/27/19 Greg Atkins MD 3 [place] [address] Physician NEUROMUSCULOSKELETAL MEDICINE 08/17/22 Maricruz Bergman NP 3 [place] [address] Nurse Practitioner NEUROLOGY 02/17/23 Ashwin Paulino MD 1 [place] [address] SURGERY 02/23/24 documented as of this encounter
--- OUTSIDE RECORDS SUMMARY | 2024-05-03 21:24 | XMS_ITS | Encounter Summary ---
Author Organization [facility] Address [address] [place] [address] Care Team Providers Care Junior Web Designer Name Role Phone Gus Espinosa MD Unavailable [phone] Greg Atkins MD Unavailable [phone] Maricruz Bergman NP Unavailable Unavaila ble Alexandrea Kelly MD Primary Care Provider [phone] Ashwin Paulino MD Unavailable [phone] Reason for Referral * Consultation (Routine) - New Request Specialty Diagnoses / Procedures Referred By Vj fink Referred To Contact GASTROENTEROLOGY Diagnoses Nausea and vomiting, unspecified vomiting type Early satiety Alexandrea Kelly MD [address] [place] [address] Phone: tel: fax: Referral ID Status Reason Start Date Expiration Date V isits Requested Visits Authorized [id number] New Request 05/03/2024 05/03/2025 1 1 Scheduling Instructions Please send to [facility] [place] SELLING FLOOR LEADER * Surgical (Routine) - New Request Specialty Diagnoses / Procedures Referred By Vj fink Referred To Contact HAND SURGERY Diagnoses Left hand pain Procedures OFFICE/OUTPATIENT NEW LOW MDM 30-44 MINUTES OFFICE/OUTPT VISIT,NEW,LEVL IV OFFICE/OUTPT VISIT,NEW,LEVL V OFFICE/OUTPT VISIT,EST,LEVL III OFFICE/OUTPT VISIT,EST,LEVL IV OFFICE/OUTPT VISIT,EST,LEVL V Alexandrea Kelly MD [address] [place] [address] Phone: tel: fax: Referral ID Status Reason Start Date Expiration Date V isits Requested Visits Authorized [id number] New Request 05/03/2024 05/03/2025 1 1 Scheduling Instructions Please send to Dr. Amy Guzman (plastics/hand) with Jack Address [address] [place] [address] [address], [address], [place] [id number] [place] SELLING FLOOR LEADER Reason for Visit * Reason Comments Establish Care 11/01/2023 [facility] Fall X 1 month ago while getting into car injured rt hand Encounter Details Date Type Department Care Team (Late st Contact Info) Description 05/03/2024 1:00 PM RETAIL SELLING FLOOR LEADER Office Visit [facility] Family Medicine [address] [address] Alexandrea Kelly MD [address] [place] [address] Establish Care (11/01/2023 [facility]); Fall (X [...] Sex Assigned at Female 05/03/2024 12:48 PM RETAIL SELLING FLOOR LEADER Legal Sex Female 5:07 PM CDT Gender Identity Female 04/06/2021 3:36 PM RETAIL SELLING FLOOR LEADER Sexual Orientation Not on file documented as of this encounter Last Filed Vital Signs Vital Sign Reading Time Taken Comments Blood Pressure 115/74 05/03/2024 1:03 PM RETAIL SELLING FLOOR LEADER Pulse 82 05/03/2024 1:03 PM RETAIL SELLING FLOOR LEADER Temperature 36.9 C (98.5 F) 05/03/2024 1:03 PM RETAIL SELLING FLOOR LEADER Respiratory Rate 12 05/03/2024 1:03 PM RETAIL SELLING FLOOR LEADER Oxygen Saturation 95% 05/03/2024 1:03 PM RETAIL SELLING FLOOR LEADER Inhaled Oxygen Concentration - - Weight 91.5 kg (201 lb 12.8 oz) 05/03/2024 1:03 PM RETAIL SELLING FLOOR LEADER Height 162.6 cm (5' 4 ) 05/03/2024 1:03 PM RETAIL SELLING FLOOR LEADER Body Mass Index 34.64 05/03/2024 1:03 PM RETAIL SELLING FLOOR LEADER documented in this encounter Plan of Treatment Upcoming Encounters Date Type Department Care Team (Late st Contact Info) Description 10/16/2024 1:20 PM CDT Office Visit [facility] 3 [facility], [address] [place] [address] Greg Atkins MD 3 [place] [address] 10/31/2024 9:40 AM CDT Office Visit [address] [address] Alexandrea Kelly MD [address] [place] [address] 02/28/2025 10:00 AM RETAIL SELLING FLOOR LEADER Office Visit [address] [address] [place] [address] [place] [address] Scheduled Orders Name Type Priority Associated Diagnoses [...] Total Score: 6 05/03/19 25 1:00 PM RETAIL SELLING FLOOR LEADER documented as of this encounter Care Teams Junior Web Designer Relationship Specialty Start Date End Date Alexandrea Kelly MD 1 [place] [address] PCP - General FAMILY PRACTICE 02/22/24 Gus Espinosa MD [address] [place] [address] GASTROENTEROLOGY 02/27/19 Greg Atkins MD 3 [place] [address] Physician NEUROMUSCULOSKELETAL MEDICINE 08/17/22 Maricruz Bergman NP 3 [place] [address] Nurse Practitioner NEUROLOGY 02/17/23 Ashwin Paulino MD [address] [place] [address] SURGERY 02/23/24 documented as of this encounter
--- OUTSIDE RECORDS SUMMARY | 2024-05-03 21:25 | XMS_ITS | Clinical Summary ---
Author Organization [facility] Address [facility] [place] [address] Care Team Providers Care Strategic Advisor Name Role Phone Gus Espinosa MD Unavailable [phone] Greg Atkins MD Unavailable [phone] Maricruz Bergman NP Unavailable Unavaila Alexandrea Warner MD Primary Care Provider [phone] Ashwin Paulino MD Unavailable [phone] Allergies Active Allergy Reactions Criticality Noted [...] disturbance (CMS/HCC HHS/HCC) 12/16/2022 Uncomplicated alcohol dependence ([facility] HHS/HC C) 08/17/2022 History of colon [...] Department Care Team Description 05/03/2024 1:00 PM DATABASE ADMINISTRATOR Office Visit [address] [address] Alexandrea Kelly MD Establish Care (11/01/2023 [facility]); Fall (X 1 month ago while getting into car injured rt hand) 05/03/[address] [address] Alexandrea Kelly MD Altered Mental Status 05/03/2024 Travel 04/07/2024 Scan [facility] INFO SRVCS Scanned, [facility] Image (SCAN); CT (SCAN) 02/23/2024 9:00 AM DATABASE ADMINISTRATOR Office Visit [facility] Family [address] [address] [place] A[place], 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- 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 Wellness (Patient presents today for her [...] Sex Assigned at Female 05/03/2024 12:48 PM DATABASE ADMINISTRATOR Legal Sex Female 5:07 PM CDT Gender Identity Female 04/06/2021 3:36 PM DATABASE ADMINISTRATOR Sexual Orientation Not on file Last Filed Vital Signs Vital Sign Reading Time Taken Comments Blood Pressure 115/74 05/03/2024 1:03 PM DATABASE ADMINISTRATOR Pulse 82 05/03/2024 1:03 PM DATABASE ADMINISTRATOR Temperature 36.9 C (98.5 F) 05/03/2024 1:03 PM DATABASE ADMINISTRATOR Respiratory Rate 12 05/03/2024 1:03 PM DATABASE ADMINISTRATOR Oxygen Saturation 95% 05/03/2024 1:03 PM DATABASE ADMINISTRATOR Inhaled Oxygen Concentration - - Weight 91.5 kg (201 lb 12.8 oz) 05/03/2024 1:03 PM DATABASE ADMINISTRATOR Height 162.6 cm (5' 4 ) 05/03/2024 1:03 PM DATABASE ADMINISTRATOR Body Mass Index 34.64 05/03/2024 1:03 PM DATABASE ADMINISTRATOR Plan of Treatment Upcoming Encounters Date Type Department Care Team (Late st Contact Info) Description 10/16/2024 1:20 PM CDT [facility] [address], [address] [place] [address] Greg Atkins MD 3 [place] [address] 10/31/2024 9:40 AM CDT Office Visit [address] [address] Alexandrea Kelly MD [address] [place] [phone] 02/28/2025 10:00 AM DATABASE ADMINISTRATOR Office Visit [address] [place] [address] Alexandrea Kelly MD [facility] [place] [address] Health Maintenance Due Date Last Done Comments [...] Dexa Scan (General) Completed 11/26/2022 PHQ-2 (Physician [place]) Completed 05/03/2024 Meningococcal B Vaccine Aged Out [...] HEPATITIS C ANTIBODY Routine 02/27/2019 10:24 AM DATABASE ADMINISTRATOR Need for hepatitis C screening test COLONOSCOPY GENERIC (SCAN ORDER) Routine 05/05/2015 12:00 AM DATABASE ADMINISTRATOR from Last 3 Months or Most Recently Relevant to Health Maintenance Results * CT GENERIC (04/07/2024) Only the most recent of2 resultswithin the time period is included. Anatomical Region Laterality Modality Other 04/07/2024 [facility] Scanned SCANNING Final Resu lt * IMAGE GENERIC (04/07/2024) Anatomical Region Laterality Modality Other 04/07/2024 [facility] Scanned SCANNING Final Resu lt * BONE DENSITY GENERIC (11/26/2022) Anatomical Region Laterality Modality Other 11/26/2022 [facility] Scanned SCANNING Final Resu lt * MAMMOGRAM GENERIC (11/26/2022) Anatomical Region Laterality Modality Other 11/26/2022 [facility] Scanned SCANNING Final Resu lt * HEPATITIS C ANTIBODY (02/27/2019 10:24 AM DATABASE ADMINISTRATOR) HEPATITIS C AB NON-REACT BEBETO NON-REACT BEBETO [facility] SIGNAL TO CUTOFF 0.01 <1.00 [facility] Comment: HCV antibody was non-reactive. There is no laboratory evidence of HCV infection. In most cases, no further action is required. However, if recent HCV exposure is suspected, a test for HCV RNA (test code 02639) is suggested. For additional information please refer to http://education.HeTexted/faq/LZW55o5 (This link is being provided for informational/ educational purposes only.) 02/27/2019 10:2 4 AM DATABASE ADMINISTRATOR 02/28/2019 7:02 AM DATABASE ADMINISTRATOR Narrative Resulting Agency Comment Performing Organization Information: Site ID: [place] Name: [facility] Address: [address] [address] Director: Bertram Thorne D.O., MPH Result [facility] [facility] Final Resul t [facility] * COLONOSCOPY (05/05/2015 12:00 AM DATABASE ADMINISTRATOR) 05/05/2015 us Documents Scanned SCANNING Final Result [facility] from Last 3 Months or Most Recently Relevant to Health Maintenance Insurance [facility] Care Teams Strategic Advisor Relationship Specialty Start Date End Date Alexandrea Kelly MD 1 [place] [address] PCP - General FAMILY PRACTICE 02/22/24 Gus Espinosa MD [address] [place] [address] GASTROENTEROLOGY 02/27/19 Greg Atkins MD 3 [place] [address] Physician NEUROMUSCULOSKELETAL MEDICINE 08/17/22 Maricruz Bergman NP 3 [place] [address] Nurse Practitioner NEUROLOGY 02/17/23 Ashwin Paulino MD 1 [place] [address] SURGERY 02/23/24
[2024-05-03 22:03] LABS: Basophils Percent Auto 0.4 % (0.2-1.2); Eosinophils Absolute Auto 0.1 K/mm3 (0-0.3); Eosinophils Percent Auto 0.8 % (0-4.4); Hematocrit 45.7 % (37.0-47.0); Hemoglobin 15.3 g/dL (12.0-15.0); Immature Granulocyte Absolute 0.03 K/mm3 (0.00-0.031); Immature Granulocyte Percent A 0.4 % (0-0.5); Lymphocytes Absolute Auto 2.47 K/mm3 (0.9-3.2); Lymphocytes Percent Auto 34.9 % (18.3-44.2); Mean Corpuscular HGB Conc 33.5 g/dl (32-36); Mean Corpuscular Hemoglobin 30.4 pg (26-34); Mean Corpuscular Volume 90.7 fl (80-100); Monocytes Absolute Auto 0.7 K/mm3 (0.1-0.6); Monocytes Percent Auto 9.9 % (2.6-8.5); Neutrophils Absolute Auto 3.8 K/mm3 (1.3-6.7); Neutrophils Percent Auto 53.6 % (45.5-73.1); Platelet Count Result 277 k/mm3 (150-375); Red Blood Count 5.04 M/mm3 (4.2-5.4); Red Cell Distribution Width 13.4 % (11.5-14.5); White Blood Count 7.1 K/mm3 (4.5-10.0)
[2024-05-03 22:13] LABS: Alanine Aminotransferase 70 U/L (6-35); Albumin Level 4.5 g/dL (3.5-5.1); Alkaline Phosphatase 120 U/L (38-126); Anion Gap 15 mmol/L (4-12); Aspartate Amino Transferase 50 U/L (14-36); Bilirubin,Total 0.9 mg/dL (0.2-1.3); Blood Urea Nitrogen 11 mg/dL (7-17); Calcium 9.7 mg/dL (8.4-10.2); Carbon Dioxide 28 mmol/L (22-30); Chloride 102 mmol/L (98-107); Estimated CRCL calculation 93 ml/min; Estimated Glomerular Filt Rate > 60; Glucose 103 mg/dL (65-110); Lipase 106 U/L (23-300); Potassium 3.5 mmol/L (3.4-5.0); Sodium 145 mmol/L (137-145)
[2024-05-03 22:39] LABS: Influenza A QL RT-PCR Negative (Negative); Influenza B QL RT-PCR Negative (Negative); RSV RNA, RT-PCR Negative (Negative); SARS-CoV-2 RNA PCR Negative (Negative)
[2024-05-03 23:16] VITALS: BP 142/80; PULSE 71; RESP 16; O2SAT 99
== END 2024-05-03 23:17 | disposition home or self-care (01) ==
PROVIDERS: Nurse Practitioner Family; Emergency Provider Student in an Organized Health Care Education/Training Program
DX: S09.90XA Unspecified injury of head, initial encounter (principal); Z20.822 Contact with and (suspected) exposure to COVID-19; Z87.440 Personal history of urinary (tract) infections; J32.9 Chronic sinusitis, unspecified; W19.XXXA Unspecified fall, initial encounter
CPT/HCPCS: 36415; 70450; 71046; 80053; 83690; 85025; 87637; 99284

== ENCOUNTER 2024-05-22 11:51 | Outpatient (CLI) | payer MEDICARE, SELFPAY | END 2024-05-22 11:52 | disposition home or self-care (01) | LOC: ANHIMG 11:53 | PROVIDERS: Visit Provider Plastic Surgery | DX: S62.397D Other fracture of fifth metacarpal bone, left hand, subsequent encounter for fracture with routine healing (principal); X58.XXXD Exposure to other specified factors, subsequent encounter | CPT/HCPCS: 73130 ==

== ENCOUNTER 2024-06-06 00:35 | Day surgery (SDC) | payer MEDICARE, SELFPAY ==
[2024-05-28 13:04] VITALS: BMI 35.4
--- OUTSIDE RECORDS SUMMARY | 2024-06-06 00:38 | XMS_ITS | Clinical Summary ---
Author Organization [place] [id number] [facility] Address [facility] [place] [address] Care Team Providers Care Load Out Person Name Role Phone Alen Ortega MD Primary Care Provider [phone] Allergies No known active allergies Medications lisinopriL [...] on file Legal Sex Female 1:58 AM PROTECTION CONSULTANT Gender Identity Not on file Sexual Orientation [...] [facility] Care Teams Load Out Person Relationship Specialty Start Date End Date Alen Ortega MD PCP - General Family Practice 03/19/20
--- OUTSIDE RECORDS SUMMARY | 2024-06-06 00:38 | XMS_ITS | Continuity of Care Document ---
Author Organization [facility] Address [address] [place] [address] [place] [address] Phone Care Team Providers Care Dietary Aid Name Role Phone Daryl Ware Unavailable Unavailable [...] Diagnoses Date Provider Providers Copied on Encounter [facility] [address] [facility], [place], [place], [id number], [place] tel:[phone] [place] No Information 4 Clayton Brito. [address] [facility], [address], [place], [address], [place]. tel:[phone] Referring Provider: Mellissa Epps [address], [place], [address]. tel:[phone] [facility] [facility] [address], [place], [place], [id number], tel:[phone] [place] No Information Apr-0 2-201 4 Muehl Daryl. [address] [place] [address], [address], [place], [place], [facility], . tel: [phone] Referring Provider: Mellissa Eppsson [address], [place], [address]. tel:[phone] [facility] [address] [facility] [address], [place], [place], [id number], tel:[phone] [place] No Information Mar-1 9-201 4 Muehl Daryl. [address] [place] [address], [address], [place], [place], [facility], [place]. tel: [phone] Referring Provider: Mellissa Eppsson [address], [place], [address]. tel:[phone] [facility] [address] [facility] [address], [place], [place], [id number], tel:[phone] [place] No Information Mar-1 2-201 4 Muehl Daryl. [address] [place] [address], [address], [place], [place], [facility], [place]. tel: [phone] Referring Provider: Mellissa [address], [place], [address]. tel:[phone] [facility] [address] [facility] [address], [place], [place], [id number], tel:[phone] [place] No Information Mar-0 5-201 4 Muehl Daryl. [address] [place] [address], [address], [place], [place], [facility], [place]. tel: [phone] Referring Provider: [address]issa [address], [place], [address]. tel:[phone] [facility] [address] [facility] [address], [place], [place], [id number], tel:[phone] [place] No Information 4 Muehl Daryl. [address] [place] [address], [address], [place], [address], [place]. tel: [phone] Referring Provider: Mellissa E[address], [place], [address]. tel:[phone] [address], [place], [place], [address], [place] tel:[phone] [place] No Information 4 Muehl Daryl. [address] [place] [address], [address], [place], [address], [place]. tel: [phone] Referring Provider: Mellissa [address], [place], [address]. tel:[phone] [address], [place], [place], [address], [place] tel:[phone] [place] No Information 4 Muehl Daryl. [address] [place] [address], [address], [place], [address], [place]. tel: [phone] Referring Provider: Mellissa [address], [place], [address]. tel:[phone], [place], [place], [address], [place] tel:[phone] [place] No Information 4 Muehl Daryl. [address] [place] [address], [address], [place], [address], [place]. tel:[phone] Referring Provider: Mellissa [address], [place], [address]. tel:[phone], [place], [place], [address], [place] tel:[phone] [place] No Information 4 Muehl Daryl. [address] [place] [address], [address], [place], [address], [place]. tel: [phone] Referring Provider: [address], [place], [address]. tel:[phone] [address], [place], [place], [address], [place] tel:[phone] [place] No Information Leon-2 0-201 4 Muehl Daryl. [address] [place] [address], [address], [place], [facility], [place]. tel: [phone] Referring Provider: Mellissa [address], [place], [address]. tel:[phone] [place] [address], [place], [place], [id number], [place] tel:[phone] [place] No Information Dec-2 7-201 3 Muehl Daryl. [address] [place] [address], [address], [place], [place], [facility], [place]. tel: [phone] Referring Provider: Mellissa [address], [place], [address]. tel:[phone] [address], [place], [place], [address], [place] tel:[phone] [place] No Information Dec-2 3-201 3 Muehl Daryl. [address] [place] [address], [address], [place], [address], [place]. tel: [phone] Referring Provider: [address]issa [address], [place], [address]. tel:[phone], [place], [place], [address], [place] tel:[phone] [place] No Information Dec-1 6-201 3 Muehl Daryl. [address] [place] [address], [address], [place], [address], [place]. tel: [phone] Referring Provider: [address], [place], [address]. tel:[phone] [address], [place], [place], [id number], tel:[phone] [place] No Information Dec-1 3-201 3 Muehl Daryl. [address] [place] [address], [address], [place], [facility], [place]. tel:[phone] Referring Provider: Mell[address], [place], [address]. tel:[phone] [address], [place], [place], [address], tel:[phone] [place] No Information Dec-1 1-201 3 Muehl Daryl. [address] [place] [address], [address], [place], [facility], [place]. tel:[phone] Referring Provider: Mellissa [address], [place], [address]. tel:[phone] [address], [place], [address], tel:[phone] [place] No Information Dec-0 5-201 3 Muehl Daryl. [address] [place] [address], [address], [place], [address], [place]. tel:[phone] Referring Provider: Mellissa [address], [place], [address]. tel:[phone] [address] [place], [place], [address], [place] tel:[phone] [place] No Information Dec-0 4-201 3 Muehl Daryl. [address] [place] [address], [address], [place], [address], [place]. tel:[phone] Referring Provider: Mellissa E[address], [place], [address]. tel:[phone] [facility], [address] [facility], [place], [place], [address], [place] tel:[phone] [place] Pain in joint involving shoulder region 3 Elena Kumar. . Referring Provider: Mellissa [address]pps [address], [place], [address]. tel:[phone] Family History Family Member Type Diagnosis Age At Onset No Information Payers Payer name Insurance type Covered democrat ID Authoriza tion(s) No Information Social History [...]
--- OUTSIDE RECORDS SUMMARY | 2024-06-06 00:38 | XMS_ITS | Continuity of Care Document ---
Author Organization [facility] Address [address] [place] [address] Phone Care Team Providers Care Frit Maker Name Role Phone Ashly Woodward MD Unavailable [...] Diagnoses Date Provider Providers Copied on Encounter [facility], [address], [place], [place], [address] , tel: [phone] [place] No Information July-0 8-201 7 Trace Limon. [address], [address], . tel: [phone] [facility], [address], [place], [place], [address] , tel: [phone] [place] No Information May-0 9-201 6 Trace Limon. [address], [address], [place]. tel: [phone] [facility], [address], [place], [place], [address] , tel: [phone] [place] Elevated cholesterol 6 Trace Limon. [address], [facility], . tel: [phone] Referring Provider: Ashly Woodward, [address] [place] [address], [facility]. tel:[phone] [facility], [address], [place], [place], [address] , tel: [phone] [place] Elevated cholesterolElevated liver enzymes 6 Trace Limon. [address], [facility], . tel: [phone] [facility], [address], [place], [place], [address] , tel: [phone] [place] Upper respiratory tract infection, unspecified type 5 Trace Limon. [address], [facility], . tel: [phone] Referring Provider: Ashly Woodward, [address] [place] [address], [facility]. tel:[phone] [facility], [address], [place], [place], [address] , tel: [phone] [place] Routine health maintenanceEncounter for screening colonoscopy 5 Trace Limon. [address], [facility], . tel: [phone] Referring Provider: Ashly Woodward, [address] [place] [address], [facility]. tel:[phone] Family History Family Member Type Diagnosis Age At Onset Mother Problem (finding) hypertension Payers Payer name Insurance type Covered libertarian ID Ronnell rincon(s) [facility] [id number] Social History Type Description Quantity Date Captured [...]
--- OUTSIDE RECORDS SUMMARY | 2024-06-06 00:38 | XMS_ITS | Referral Summary ---
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 MDCR HMO REF [facility] MEDICARE Address: [address] [address] [place] [address] [facility] MDCR HMO REF [facility] MEDICARE Address: [address] [address] [place] [address] Care Teams Tour Conductor Relationship Specialty Start Date End Date Alen Orteag MD PCP - General Family Practice 03/19/20
--- OUTSIDE RECORDS SUMMARY | 2024-06-06 00:38 | XMS_ITS | Clinical Summary ---
Author Organization [facility] Address [facility] [place] [address] Care Team Providers Care Utilities Equipment Repairer Name Role Phone Gus Espinosa MD Unavailable [phone] Greg Atkins MD Unavailable [phone] Maricruz Bergman NP Unavailable Unavaila Alexandrea Warner MD Primary Care Provider [phone] Ashwin Paulino MD Unavailable [phone] Allergies Active Allergy Reactions Criticality Noted Date Comments Atorvastatin Myalgias High 05/02/2019 Medications donepezil (ARICEPT) 5 MG TabIndications:MCI (mild cognitive impairment) Take 1 tablet (5 mg total) by mouth nightly at bedtime. 30 tablet 11 4 Active escitalopram (LEXAPRO) 10 MG tabletIndications: Situational anxiety TAKE 1/2 TABLET(5 MG) BY MOUTH EVERY NIGHT AT BEDTIME 45 tablet 5 Active clotrimazole (LOTRIMIN) 1 % creamIndications:C andidal intertrigo Apply topically 2 (two) times daily. 28 g 2 5 Active ezetimibe (ZETIA) 10 MG tabletIndications: Mixed hyperlipidemia Take 1 tablet (10 mg total) by mouth daily. 90 tablet 3 5 Active gemfibrozil (LOPID) 600 MG tabletIndications: Mixed hyperlipidemia Take 1 tablet (600 mg total) by mouth daily. 90 tablet 3 5 Active Active Problems Problem Noted Date Diagnosed Date Altered mental status, unspe cified altered mental status type 05/10/2024 Overview (05/10/2024): - pt with worsening memory, echolalia, inappropriate social behavior - messaged pt's neurologist, who recommends going to nearest ED for AMS w/u, as this is acute change from baseline - will await hospital w/u Candidal intertrigo 05/10/2024 Overview (05/10/2024): - b/l inframammary intertrigo with overlying candidal infection - counseled to keep area dry, will treat infection with clotrimazole cream Left hand pain 05/10/2024 Overview (05/10/2024): - s/p FOOSH 04/07/24, still with continued pain and swelling - will obtain updated hand and wrist XR, as hairline fx may not have been evident on acute imaging - pt wishes to see hand surgeon to discuss, will refer to [facility] given it is closer to pt's house Nausea and vomiting, unspecified vomiting type 0 05/10/2024 Early satiety 05/10/2024 Overview (05/10/2024): - pt with nonspecific nausea and vomiting over the last 2-3 weeks, a/w early satiety - concern for worsening GERD/h pylori/gastroparesis/ulcer/neoplasm - will refer to GI for likely EGD Morbid (severe) obesity due to excess calories 0 11/01/2023 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 12/16/2022 Uncomplicated alcohol dependence (CMS/[facility] HHS/HC C) 08/17/2022 Overview (05/10/2024): - pt reports she has cut back her drinking, currently drinking 2-5 12oz beers/day, 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 - reports falling last month after having a few drinks, FOOSH to R hand - encouraged pt to cut back drinking gradually, as quitting cold turkey can precipitate a withdrawal seizure - if wanting to quit abruptly, go to ED for safe withdrawal - pt states she does not have an issue with drinking History of colon polyps 02/19/2020 Overview (02/19/2020): Tubular adenoma no high risk dysplasia ([place]a 04/2015) Arthritis of both glenohumeral joints 02/19/2020 Rotator cuff tear arthropathy of both shoulders 02/19/2020 Situational anxiety 02/27/2019 Elevated LFTs 02/27/2019 Essential hypertension 02/27/2019 Overview (05/10/2024): - BP goal: less than 140/90 - BP controlled: Yes - Labs: UTD - Pt does not use tobacco products, encouraged cessation if using tobacco products - Counseled regarding importance of lifestyle modification: healthy diet & regular exercise 30mins 3-5x weekly - RTC 6 month(s) - will d/c lisinopril given relative hypotension and pt symptomatic with dizziness and lightheadedness Diverticulosis of large intestine without hemorr arielle 03/27/2018 Pain, low back 11/07/2017 Hyperlipidemia 09/01/2017 Overview (05/10/2024): - stable on zetia and gemfibrozil, unable to tolerate statins 2/2 myalgias Resolved Problems Problem Noted Date Diagnosed Date Resolved Date Encounter for preventive health examination 08/31/2017 11/30/2019 Encounters Date Type Department Care Team Description 05/18/2024 Telephone [place] [address] [place] [address] Alexandrea Kelly MD Record Request (Melvi requesting records of pt last visit with pcp, records faxed per request) 05/03/2024 1:00 PM REDEVELOPMENT SPECIALIST Office Visit [place] [address] [place] [address] Alexandrea Kelly MD Establish Care (11/01/2023 palma bennie); Fall (X 1 month ago while getting into car injured rt hand) 05/03/2024 Telephone [place] [address] [place] [address] [facility] Altered Mental Status 05/03/2024 Travel 04/07/2024 Scan [facility] SRVCS Scanned, [facility] Image (SCAN); CT (SCAN) from Last 3 Months Immunizations Name Administration [...] Sex Assigned at Female 05/03/2024 12:48 PM REDEVELOPMENT SPECIALIST Legal Sex Female 5:07 PM CDT Gender Identity Female 04/06/2021 3:36 PM REDEVELOPMENT SPECIALIST Sexual Orientation Not on file Last Filed Vital Signs Vital Sign Reading Time Taken Comments Blood Pressure 115/74 05/03/2024 1:03 PM REDEVELOPMENT SPECIALIST Pulse 82 05/03/2024 1:03 PM REDEVELOPMENT SPECIALIST Temperature 36.9 C (98.5 F) 05/03/2024 1:03 PM REDEVELOPMENT SPECIALIST Respiratory Rate 12 05/03/2024 1:03 PM REDEVELOPMENT SPECIALIST Oxygen Saturation 95% 05/03/2024 1:03 PM REDEVELOPMENT SPECIALIST Inhaled Oxygen Concentration - - Weight 91.5 kg (201 lb 12.8 oz) 05/03/2024 1:03 PM REDEVELOPMENT SPECIALIST Height 162.6 cm (5' 4 ) 05/03/2024 1:03 PM REDEVELOPMENT SPECIALIST Body Mass Index 34.64 05/03/2024 1:03 PM REDEVELOPMENT SPECIALIST Plan of Treatment Upcoming Encounters Date Type Department Care Team (Late st Contact Info) Description 10/16/2024 1:20 PM CDT Office Visit [facility] [address] [facility], [address] [place] [address] Greg Atkins MD [address] [place] [address] 10/31/2024 9:40 AM CDT Office Visit [address] [address] Alexandrea Kelly MD [address] [place] [address] 02/28/2025 10:00 AM REDEVELOPMENT SPECIALIST Office Visit [address] [address] Alexandrea Kelly MD [address] [place] [address] Health Maintenance Due Date Last Done Comments Mammogram Screening 11/27/2023 11/26/2022, 05/21/2021 COVID-19 Vaccine (3 - 2023-2 5 season) 2025 06/04/2020, 05/07/2020 Postponed from [...] Dexa Scan (General) Completed 11/26/2022 PHQ-2 (Physician [place]) Completed 05/03/2024 Meningococcal B Vaccine Aged Out [...] HEPATITIS C ANTIBODY Routine 02/27/2019 10:24 AM REDEVELOPMENT SPECIALIST Need for hepatitis C screening test COLONOSCOPY GENERIC (SCAN ORDER) Routine 05/05/2015 12:00 AM REDEVELOPMENT SPECIALIST from Last 3 Months or Most Recently Relevant to Health Maintenance Results * CT GENERIC (04/07/2024) Only the most recent of2 resultswithin the time period is included. Anatomical Region Laterality Modality Other 04/07/2024 [facility] Scanned SCANNING Final Resu lt * IMAGE GENERIC (04/07/2024) Anatomical Region Laterality Modality Other 04/07/2024 [facility] Scanned SCANNING Final Resu lt * BONE DENSITY GENERIC (11/26/2022) Anatomical Region Laterality Modality Other 11/26/2022 [facility] Scanned SCANNING Final Resu lt * MAMMOGRAM GENERIC (11/26/2022) Anatomical Region Laterality Modality Other 11/26/2022 [facility] Scanned SCANNING Final Resu lt * HEPATITIS C ANTIBODY (02/27/2019 10:24 AM REDEVELOPMENT SPECIALIST) HEPATITIS C AB NON-REACT BEBETO NON-REACT BEBETO [facility] SIGNAL TO CUTOFF 0.01 <1.00 [facility] Comment: HCV antibody was non-reactive. There is no laboratory evidence of HCV infection. In most cases, no further action is required. However, if recent HCV exposure is suspected, a test for HCV RNA (test code 06523) is suggested. For additional information please refer to http://education.SonarMed/faq/EUB76o3 (This link is being provided for informational/ educational purposes only.) 02/27/2019 10:2 4 AM REDEVELOPMENT SPECIALIST 02/28/2019 7:02 AM REDEVELOPMENT SPECIALIST Narrative Resulting Agency Comment Performing Organization Information: Site ID: [id number] Name: [facility] Address: [address] [address] Director: Bertram Thorne D.O., MPH [facility] Final Resul t [facility] * COLONOSCOPY (05/05/2015 12:00 AM REDEVELOPMENT SPECIALIST) 05/05/2015 us Documents Scanned SCANNING Final Result Performing Organization Address City/State/[facility] de Phone Number SATNAM PASCUAL from Last 3 Months or Most Recently Relevant to Health Maintenance Insurance [facility] Care Teams Utilities Equipment Repairer Relationship Specialty Start Date End Date Alexandrea Kelly MD [address] [place] [address] PCP - General FAMILY PRACTICE 02/22/24 Gus Espinosa MD [address] [place] [address] GASTROENTEROLOGY 02/27/19 Greg Atkins MD [address] [place] [address] Physician NEUROMUSCULOSKELETAL MEDICINE 08/17/22 Maricruz Bergman NP [address] [place] [address] Nurse Practitioner NEUROLOGY 02/17/23 Ashwin Paulino MD [address] [place] [address] SURGERY 02/23/24
[2024-06-06 11:08] VITALS: BP 155/94; PULSE 74; RESP 16; TEMP 36; O2SAT 97; BMI 35.6
[2024-06-06] MEDS: LACTATED RINGERS 1,000 ML 150 ML IV CONT (11:19)
--- NOTE | 2024-06-06 11:28 | WPDANESEPPF ---
Anes - Initial Pre Proc Eval Procedure: Operation Date: 06/06/24 11:45 Proposed Procedures p Esophagogastroduodenoscopy - Jerod Portillo MD Date/Time: 06/06/24 11:28 Surgeon: Jerod Portillo MD Pre Op Diagnosis: Epigastric pain, Anorexia, Early satiety Patient Data Age: 68 Gender: F Height: 1.63 m Weight: 94.2 kg Last Vital Signs Temp 96.8 F L 06/06/24 11:08 Pulse 74 06/06/24 11:08 Resp 16 06/06/24 11:08 BP 155/94 H 06/06/24 11:08 Pulse Ox 97 06/06/24 11:08 O2 Del Method Room Air 06/06/24 11:08 Allergies Allergy/AdvReac Type Severity Reaction Status Date / Time No Known Allergies Allergy Verified 06/06/24 11:06 Home Medications ?Medication ?Instructions ?Recorded ?Confirmed ?Type escitalopram oxalate 10 mg tablet 10 mg PO DAILY 07/17/21 06/06/24 History ezetimibe 10 mg tablet 10 mg PO DAILY 07/17/21 06/06/24 History donepezil 5 mg tablet 5 mg PO .QD 03/22/24 06/06/24 History inhalational spacing device #1 ea 03/22/24 05/28/24 Rx (Aerochamber MV spacer) gemfibrozil 600 mg tablet (Lopid) 600 mg PO DAILY 05/21/24 06/06/24 History Patient hx anesthesia problems: none Family hx anesthesia problems: none Results Review: All pre-operative results and documents have been reviewed as part of the pre-operative evaluation. ON LICENSE OF [facility] Past Medical History Medical History UTI (urinary tract infection) Social History Social History Smoking status: Unknown if ever smoked Tobacco type: cigarettes Smoking end date: 03/21/95 Alcohol intake: current Alcohol use details: 6 beers a day Substance use: former Substance use type: does not use and marijuana Living arrangements: with family Spiritual care concerns: No Anes - Eval Final PreProcedure Day of Procedure 06/06/24 11:28 Patient weight: obese Heart: regular rate and rhythm Lungs: clear to auscultation Airway: Mallampati scale class II Neurological: alert and oriented Last oral intake: >/= 8 hours ASA classification: III Emergent: no Anesthetic plan: proceed Anesthesia type and monitoring: general GIVS and standard monitoring Results Review: All pre-operative results and documents have been reviewed as part of the pre-operative evaluation. Informed Consent: The patient's anesthetic plan and its attendant risks and benefits were discussed with the patient/family/POA. Questions were solicited and answers provided to the satisfaction of the patient/family/POA.
--- NOTE | 2024-06-06 11:44 | WPDHPUPDATE1 ---
History and Physical Update Update Date/Time: 06/06/24 11:44 History and Physical has been reviewed, including an updated exam of the patient. There are NO changes in the patient's condition. Risks, benefits, and alternatives have been discussed and questions answered. Patient agrees to proceed with procedure.
[2024-06-06 11:59] VITALS: BP 138/91; PULSE 82; RESP 16; O2SAT 94
[2024-06-06 12:09] VITALS: BP 142/85; PULSE 69; RESP 20; O2SAT 95
[2024-06-06 12:19] VITALS: BP 144/99; PULSE 69; RESP 20; O2SAT 96
== END 2024-06-06 12:31 | disposition home or self-care (01) ==
PROVIDERS: Referring Provider Nurse Practitioner Family; Visit Provider Internal Medicine Gastroenterology
PROC: 0DJ08ZZ Inspection of Upper Intestinal Tract, Via Natural or Artificial Opening Endoscopic (ICD-10-PCS; CPT 43239; principal; 2024-06-06 11:45)
DX: K29.80 Duodenitis without bleeding (principal); Z87.891 Personal history of nicotine dependence; E66.9 Obesity, unspecified; Z68.35 Body mass index [BMI] 35.0-35.9, adult
CPT/HCPCS: 43239; 88305; J2003; J2704; J7120

== ENCOUNTER 2024-06-11 07:17 | Outpatient (CLI) | payer MEDICARE, SELFPAY ==
--- NOTE | ~2024-06-11 | NM_ITS ---
EXAM: NM gastric emptying study DATE: 06/11/2024 12:38 INDICATION: Nausea with vomiting, unspecified. TECHNIQUE: A gastric emptying study was performed using the methodology of Jony STEPHENS, et al. J Nucl Med 2007; 48:568-572. The patient was given a meal consisting of 2 scrambled eggs labeled with 1.012 mCi Tc-99m sulfur colloid, 2 slices of toast, two packages of jam, and approximately 120 mL of water . Simultaneous anterior and posterior 1-min images of the abdomen were obtained with the patient supi ne at multiple time points over a total period of 4 hours. The geometric mean of anterior and posteri or views was determined, and the percentage retention was calculated for each time point. COMPARISON: None. FINDINGS: Gastric retention of the radiotracer-labeled meal was 36%, 9%, and 4% at the 1-hour, 2-zaki r, and 4-hour time points, respectively. With this technique, apparent rapid gastric emptying is sugg ested by <30% gastric retention at 1 hour. Delayed gastric emptying is defined by gastric retention o f >90% at 1 hour, >60% retention at 2 hours, or >10% retention at 4 hours. IMPRESSION: 1. Normal gastric emptying. Reviewed, dictated and finalized at location A. IMPRESSION: 1. Normal gastric emptying.
--- OUTSIDE RECORDS SUMMARY | 2024-06-11 07:23 | XMS_ITS | Continuity of Care Document ---
Author Organization [facility] Address [address] [place] [address] Phone Care Team Providers Care Parcel Post Officer Name Role Phone Ashly Woodward MD Unavailable Unavailable Allergies, Adverse Reactions, Alerts Substance Reaction Status Criticality No Known Allergies Active No Inform ation Medications Medication Instructions Dosage Effective Dates (start - stop) Status Comments atorvastatin 40 mg tablet take 1 tablet by oral route every day 40 MG - Active multivitamin tablet take 1 tablet by ora l route every day with food - Active vitamin B12 500 mcg-folic acid 400 mcg tablet take 1 tablet by oral route daily. - Active Advance Directives Directive Yes / No Effective Date File Name No Information Encounters Encounter Description Practice Location Reason(s) For Visit Diagnoses Date Provider Providers Copied on Encounter [facility] [address], [place], [place], [id number] , tel: [phone] [facility] No Information July-0 8-201 7 Trace Limon. [address], [address], . tel: [phone] [facility] [address], [place], [place], [address] , tel: [phone] [facility] No Information July-0 9-201 6 Trace Limon. [address], [address], [place]. tel: [phone] [facility] [address], [place], [place], [id number] , tel: [phone] [facility] Elevated cholesterol 6 Trace Limon. [address], [facility], . tel: [phone] Referring Provider: Ashly Woodward, [address] [place] [address], [facility]. tel:[phone] [facility] [address], [place], [place], [address] , tel: [phone] [facility] Elevated cholesterolElevated liver enzymes 6 Trace Limon. [address], [facility], . tel: [phone] [facility] [address], [place], [place], [address] , tel: [phone] [facility] Upper respiratory tract infection, unspecified type 5 Trace Limon. [address], [facility], . tel: [phone] Referring Provider: Ashly Woodward, [address] [place] [address], [facility]. tel:[phone] [facility] [address], [place], [place], [address] , tel: [phone] [facility] Routine health maintenanceEncounter for screening colonoscopy 5 Trace Limon. [address], [facility], . tel: [phone] Referring Provider: Ashly Woodward, [address] [place] [address], [facility]. tel:[phone] Family History Family Member Type Diagnosis Age At Onset Mother Problem (finding) hypertension Payers Payer name Insurance type Covered democrat ID Ronnell rincon(s) [facility] [id number] Social History Type Description Quantity Date Captured [...]
--- OUTSIDE RECORDS SUMMARY | 2024-06-11 07:24 | XMS_ITS | Patient Health Record ---
Author Organization [facility] Address [address] [place] [address] Support Name Relationship Address Phone Mary Reis Guarantor Unknown Allergies No Known Allergies Reason For Referral No Information Medications Medication SIG (Take, Route, Frequency, Duration) Notes Start Date End Date Status Vitamin R48-Awbow Acid 500-400 MCG Oral Active traMADol HCl [...] Notes Problem Adhesive capsulitis of right shoulder (37400628557707 9) Adhesive capsulitis of right shoulder (M75.01) 07/28/2015 Active confirmed Problem Calcific tendinitis of left shoulder ([id number] 8) Calcific tendinitis of left shoulder (M75.32) 07/28/2015 Active confirmed Plan Of Treatment No Information Insurance Providers Payer Name Payer Address Payer Phone Subscriber Number Group Number Insured Name Patient Relationship to Insured Coverage Start Date Coverage End Date [facility] [address] [place] D[place] [id number] ElizabethMary romano Self - patient is the insured 6 [facility] [address] [place] [address] [id number] Mary Reis Self - patient is the insured 6 Medical (General) History Surgical History Surgery Date(Month/Year) * NO SURGERIES; 2015-06-13
--- OUTSIDE RECORDS SUMMARY | 2024-06-11 07:24 | XMS_ITS | Clinical Summary ---
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
--- OUTSIDE RECORDS SUMMARY | 2024-06-11 07:24 | XMS_ITS | Referral Summary ---
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
--- OUTSIDE RECORDS SUMMARY | 2024-06-11 07:24 | XMS_ITS ---
Author Organization [facility] Address [address] [address] Care Team Providers Care Corncob Pipes Assembler Name Role Phone zginoMigrning, zzzzProvider Unavailable Unav ailable Allergies No Known Allergies REASON FOR VISIT [facility] Medications Medication SIG (Take, Route, Frequency, Duration) Notes Start Date End Date Status Vitamin I74-Behzz Acid 500-400 MCG Oral Active traMADol HCl [...] Active Encounters Encounter Location Date Provider Diagnosis [facility] [address], [place] [address] 01/09/2023 zzzzProvider zzzzMigration Plan Of Treatment No Information Progress Notes * Huey PETERSOB: [birth year] (68 yo F)Acc No.[id number]:01/09/2023 Patient: Konstantin TrejoJULIETMary :1955 A ge:67 Y S ex:Female Address:[address] [place] [address] Subjective: * Chief Complaints: * E MR-Isael * Medical History: * Surgical History: * NO SURGERIES; 2015-06-13 * Hospitalization/Major Diagno stic Procedure: * Social History: M igrated Social History: M igrated Social History: Exercise :: Exercises regularly , Exercise :: Walks , 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
--- OUTSIDE RECORDS SUMMARY | 2024-06-11 07:25 | XMS_ITS ---
Author Organization [facility] Address [address] [place] [address] Care Team Providers Care Project Management Specialist Name Role Phone zzzzMigration, zzzzProvider Unavailable Unav ailable REASON FOR VISIT EMR-Isael Encounters Encounter Location Date Provider Diagnosis [facility] [address] [place] [address] 01/08/2023 zzzzProvider zzzzMigration Plan Of Treatment Medication Medication Name Sig Start Date Stop Date Notes predniSONE 20 MG take 3 tablets by or al route daily for 5 days Oral 1 for 5 07/28/2015 08/02/2015 Progress Notes * Huey REISOB: [birth year] (68 yo F)Acc No.[id number]:01/08/2023 Patient: Konstantin Mary BRO :1955 A ge:67 Y S ex:Female Address:[address] [place] [address], [address] * Refills Stop predniSONE Tablet, 20 MG, Oral, 15, take 3 tablets by oral route daily for 5 days, 1, 5 Subjective: * Chief Complaints: * E MR-Isael * Medical History: * Surgical History: * Hospitalization/Major Diagno stic Procedure: * Medications: Objective: * Vitals: * Physical Examination: Assessment: Plan: * Treatment: * Procedure Codes: * true * Date: Generated for Ramona cespedes/Connie/eTransmitting on: 0 06/11/2024 07:25 AM CDT
--- OUTSIDE RECORDS SUMMARY | 2024-06-11 07:25 | XMS_ITS | Clinical Summary ---
Author Organization [facility] Address [facility] [place] [address] Care Team Providers Care Research And Evaluation Analyst Name Role Phone Gus Espinosa MD Unavailable [phone] Greg Atkins MD Unavailable [phone] Maricruz Bergman NP Unavailable Unavaila Alexandrea Warner MD Primary Care Provider [phone] Ashwin Paulino MD Unavailable [phone] Allergies Active Allergy Reactions Criticality Noted [...] hand surgeon to discuss, will refer to [facility] given it is closer to pt's house [...] without behavioral disturbance 12/16/2022 Uncomplicated alcohol dependence (CMS/FORMER[facility] HHS/HC C) 08/17/2022 Overview (05/10/2024): [...] Type Department Care Team Description 05/18/2024 Telephone [place] [address] [place] [address] Alexandrea Kelly MD Record Request (Melvi requesting records of pt last visit with pcp, records faxed per request) 05/03/2024 1:00 PM TRACK GRINDER Office Visit [address] [place] [address] Alexandrea Kelly MD Establish Care (11/01/2023 palma bennie); Fall (X 1 month ago while getting into car injured rt hand) 05/03/2024 Telephone [address] [place] [address] [facility] Altered Mental Status 05/03/2024 Travel [...] Sex Assigned at Female 05/03/2024 12:48 PM TRACK GRINDER Legal Sex Female 5:07 PM CDT Gender Identity Female 04/06/2021 3:36 PM TRACK GRINDER Sexual Orientation Not on file Last Filed Vital Signs Vital Sign Reading Time Taken Comments Blood Pressure 115/74 05/03/2024 1:03 PM TRACK GRINDER Pulse 82 05/03/2024 1:03 PM TRACK GRINDER Temperature 36.9 C (98.5 F) 05/03/2024 1:03 PM TRACK GRINDER Respiratory Rate 12 05/03/2024 1:03 PM TRACK GRINDER Oxygen Saturation 95% 05/03/2024 1:03 PM TRACK GRINDER Inhaled Oxygen Concentration - - Weight 91.5 kg (201 lb 12.8 oz) 05/03/2024 1:03 PM TRACK GRINDER Height 162.6 cm (5' 4 ) 05/03/2024 1:03 PM TRACK GRINDER Body Mass Index 34.64 05/03/2024 1:03 PM TRACK GRINDER Plan of Treatment Upcoming Encounters Date Type Department Care Team (Late st Contact Info) Description 10/16/2024 1:20 PM CDT Office Visit [facility] [address] [facility], [address] [place] [address] Greg Atkins MD [address] [place] [address] 10/31/2024 9:40 AM CDT Office Visit [address] [address] Alexandrea Kelly MD [address] [place] [address] 02/28/2025 10:00 AM TRACK GRINDER Office Visit [address] [address] Alexandrea Kelly MD [address] [place] [address] Health Maintenance Due Date Last Done [...] Dexa Scan (General) Completed 11/26/2022 PHQ-2 (Physician [facility]) Completed 05/03/2024 Meningococcal B Vaccine Aged Out [...] HEPATITIS C ANTIBODY Routine 02/27/2019 10:24 AM TRACK GRINDER Need for hepatitis C screening test COLONOSCOPY GENERIC (SCAN ORDER) Routine 05/05/2015 12:00 AM TRACK GRINDER from Last 3 Months or Most Recently [...] (11/26/2022) Anatomical Region Laterality Modality Other 11/26/2022 [facility] Scanned SCANNING Final Resu lt * MAMMOGRAM GENERIC (11/26/2022) Anatomical Region Laterality Modality Other 11/26/2022 [facility] Scanned SCANNING Final Resu lt * HEPATITIS C ANTIBODY (02/27/2019 10:24 AM TRACK GRINDER) HEPATITIS C AB NON-REACT BEBETO NON-REACT BEBETO [facility] SIGNAL TO CUTOFF 0.01 <1.00 [facility] Comment: HCV antibody was non-reactive. There is no laboratory evidence of HCV infection. In most cases, no further action is required. However, if recent HCV exposure is suspected, a test for HCV RNA (test code 72626) is suggested. For additional information please refer to http://education.LetGive/faq/LRA28r8 (This link is being provided for informational/ educational purposes only.) 02/27/2019 10:2 4 AM TRACK GRINDER 02/28/2019 7:02 AM TRACK GRINDER Narrative Resulting Agency Comment Performing Organization Information: Site ID: [place] Name: [facility] Address: [address] [address] Director: Bertram Thorne D.O., MPH [facility] Final Resul t [facility] * COLONOSCOPY (05/05/2015 12:00 AM TRACK GRINDER) 05/05/2015 us Documents Scanned SCANNING Final Result Performing Organization Address City/State/[facility] de Phone Number SATNAM PASCUAL from Last 3 Months or Most Recently Relevant to Health Maintenance Insurance [facility] Care Teams Research And Evaluation Analyst Relationship Specialty Start Date End Date Alexandrea Kelly MD [address] [place] [address] PCP - General FAMILY PRACTICE 02/22/24 Gus Espinosa MD [address] [place] [address] GASTROENTEROLOGY 02/27/19 Greg Atkins MD [address] [place] [address] Physician NEUROMUSCULOSKELETAL MEDICINE 08/17/22 Maricruz Bergman NP [address] [place] [address] Nurse Practitioner NEUROLOGY 02/17/23 Ashwin Paulino MD [address] [place] [address] SURGERY 02/23/24
== END 2024-06-11 07:18 | disposition home or self-care (01) ==
PROVIDERS: Visit Provider Nurse Practitioner Family
DX: R11.2 Nausea with vomiting, unspecified (principal); R10.13 Epigastric pain; R63.0 Anorexia; R68.81 Early satiety
CPT/HCPCS: 78264; A9541

== ENCOUNTER 2024-06-22 14:18 | Emergency (ER) | payer MEDICARE, SELFPAY ==
[2024-06-22 14:38] VITALS: BP 124/83; PULSE 83; RESP 16; TEMP 36.4; O2SAT 99
--- NOTE | 2024-06-22 15:46 | ED.FEMALEGU ---
HPI - Female Genitourinary General Chief complaint: Urogenital-Female Stated complaint: urinary issue Source: patient and RN notes reviewed Mode of arrival: ambulatory Limitations: no limitations History of Present Illness HPI Narrative: 68-year-old female presents to [facility] complaining of increased urinary frequency and hesitancy since yesterday. Patient denies any burning with urination, abdominal pain, back pain, fevers or any other complaints. Patient states she has a history of bladder infections. She denies any past medical history other than hypertension. Related Data Home Medications ?Medication ?Instructions ?Recorded ?Confirmed ?Last Taken ?Type escitalopram oxalate 10 mg tablet 10 mg PO DAILY 07/17/21 06/22/24 06/05/24 History ezetimibe 10 mg tablet 10 mg PO DAILY 07/17/21 06/22/24 06/05/24 History donepezil 5 mg tablet 5 mg PO .QD 03/22/24 06/22/24 06/05/24 History gemfibrozil 600 mg tablet (Lopid) 600 mg PO DAILY 05/21/24 06/22/24 06/05/24 History Allergies Allergy/AdvReac Type Severity Reaction Status Date / Time No Known Allergies Allergy Verified 06/22/24 14:40 Review of Systems Review of Systems: CONSTITUTIONAL: Denies fever, chills, or sweats. EYES: Denies visual changes, redness, or discharge. ENT: Denies rhinorrhea, congestion, sore throat, or otalgia. CARDIOVASCULAR: Denies chest pain, palpitations, or edema. RESPIRATORY: Denies cough or dyspnea. GASTROINTESTINAL: Denies abdominal pain, nausea, vomiting, or diarrhea. GENITOURINARY: Denies dysuria, retention, or hematuria. Positive for increased urinary frequency and hesitancy. SKIN: Denies rash or itching. MUSCULOSKELETAL: Denies back pain, joint pain, or myalgia. NEUROLOGIC: Denies headache, numbness, or weakness. PSYCHIATRIC: Denies anxiety or depression. All other systems reviewed are negative, except as documented in HPI. [facility] Past Medical History Medical History UTI (urinary tract infection) Social History Social History Smoking status: Unknown if ever smoked Tobacco type: cigarettes Smoking end date: 03/21/95 Alcohol intake: current Alcohol use details: 6 beers a day Substance use: former Substance use type: does not use and marijuana Living arrangements: with family Spiritual care concerns: No Comments At the time of my signature, I reviewed and agree with the nursing past medical, surgical, social, and family history. There is no relevant family history pertinent to the patient complaint. Exam Narrative: GENERAL: This is a well-nourished, well-developed adult, in no apparent distress. They are non ill-appearing, nontoxic appearing. HEAD: normocephalic, atraumatic. EYES: Sclera clear/white. Vision is grossly intact. EARS: External ears normal, auditory canals clear and without drainage, . Hearing grossly intact. NOSE: External nose normal THROAT: Mucous membranes moist, posterior pharynx clear. NECK: Neck supple, CARDIOVASCULAR: Regular rate and rhythm without murmurs, gallops, or rubs. RESPIRATORY: Clear to auscultation. Breath sounds equal bilaterally. No wheezes, rales, or rhonchi. GASTROINTESTINAL: Abdomen soft, non-tender, nondistended. Bowel sounds are active. No hepato-splenomegaly, or palpable masses. No guarding. SKIN: warm, Dry, intact with no suspicious lesions or rash, good texture and turgor. NEURO: awake, alert, and oriented to person, place and time. There were no obvious focal neurologic abnormalities. EXTREMITIES: No joint tenderness, effusion, or edema noted. BACK: Nontender without deformity. No CVA tenderness. Course Course Level of Care: Express Care Visit Vital Signs Vital signs: Vital Signs Temperature 97.6 F 06/22/24 14:38 Pulse Rate 83 06/22/24 14:38 Respiratory Rate 16 06/22/24 14:38 Blood Pressure 124/83 06/22/24 14:38 Pulse Oximetry 99 06/22/24 14:38 Oxygen Delivery Room Air 06/22/24 14:38 Temperature 97.6 F 06/22/24 14:38 Pulse Rate 83 06/22/24 14:38 Respiratory Rate 16 06/22/24 14:38 Blood Pressure 124/83 06/22/24 14:38 Pulse Oximetry 99 06/22/24 14:38 Oxygen Delivery Room Air 06/22/24 14:38 Reviewed MDM - Female Genitourinary Differential Diagnosis Differential diagnosis: Likely urinary tract infection, cystitis and other (Overactive bladder) Lab Data Attestation: I reviewed the patient's lab results. Critical Care Time Critical Care Time Critical Care Time: No Discharge Plan Discharge Clinical Impression: Urinary tract infection Qualifiers: Urinary tract infection type: site unspecified Hematuria presence: with hematuria Qualified Code(s): N39.0 - Urinary tract infection, site not specified Patient Disposition: Home, Self-Care Condition: Stable Instructions: Antibiotic Form, Urinary Tract Infection in Women (DC) Additional Instructions: Take the antibiotic as prescribed. The urine will be sent of for a culture to identify what type of bacteria is causing your infection. If the culture shows that the antibiotic will not get rid of your infection, you will be notified and a new antibiotic will be called in for you. Increase water intake you will need to follow up with your PCP, call to schedule an appointment. Go to the ER for any worsening symptoms or concerns Patient Language: German Prescriptions: New cephalexin 500 mg capsule 500 mg PO BID 5 Days Qty: 10 0RF No Action escitalopram oxalate 10 mg tablet 10 mg PO DAILY ezetimibe 10 mg tablet 10 mg PO DAILY donepezil 5 mg tablet 5 mg PO .QD gemfibrozil [Lopid] 600 mg tablet 600 mg PO DAILY Follow-up/Referrals: Lou,MD Gildardo [Primary Care Provider] - Time of Disposition: 15:59
[2024-06-22 15:53] LABS: EDUAAPPEAR Clear; EDUABILI Negative (Negative); EDUABLOOD 2+ (Negative); EDUACOLOR1 Yellow; EDUAGLUCOSE Negative (Negative); EDUAKETONE Negative (Negative); EDUALEUKO 1+ (Negative); EDUANITRATE Negative (Negative); EDUAPH 5.5; EDUAPROTEIN 2+ (Negative); EDUASPGRAVITY 1.025; EDUAUROBILI 0.2
== END 2024-06-22 16:05 | disposition home or self-care (01) ==
PROVIDERS: PCP Obstetrics & Gynecology
DX: N39.0 Urinary tract infection, site not specified (principal); I10 Essential (primary) hypertension; Z87.891 Personal history of nicotine dependence
CPT/HCPCS: 81003; 87086; 99213; G0463

== ENCOUNTER 2024-07-17 11:53 | Outpatient (CLI) | payer MEDICARE, SELFPAY ==
[2024-07-17 12:22] LABS: Basophils Percent Auto 0.6 % (0.2-1.2); Eosinophils Absolute Auto 0.1 K/mm3 (0-0.3); Eosinophils Percent Auto 1.1 % (0-4.4); Hematocrit 45.9 % (37.0-47.0); Hemoglobin 14.9 g/dL (12.0-15.0); Immature Granulocyte Absolute 0.02 K/mm3 (0.00-0.031); Immature Granulocyte Percent A 0.4 % (0-0.5); Lymphocytes Absolute Auto 2.02 K/mm3 (0.9-3.2); Lymphocytes Percent Auto 38.1 % (18.3-44.2); Mean Corpuscular HGB Conc 32.5 g/dl (32-36); Mean Corpuscular Hemoglobin 30.2 pg (26-34); Mean Corpuscular Volume 93.1 fl (80-100); Mean Platelet Volume 9.7 fl (7.4-10.4); Monocytes Absolute Auto 0.5 K/mm3 (0.1-0.6); Monocytes Percent Auto 8.5 % (2.6-8.5); Neutrophils Absolute Auto 2.7 K/mm3 (1.3-6.7); Neutrophils Percent Auto 51.3 % (45.5-73.1); Platelet Count Result 158 k/mm3 (150-375); Red Blood Count 4.93 M/mm3 (4.2-5.4); Red Cell Distribution Width 13.5 % (11.5-14.5); White Blood Count 5.3 K/mm3 (4.5-10.0)
[2024-07-17 12:31] LABS: Hemoglobin A1C 4.8 % (<5.7)
[2024-07-17 12:34] LABS: Cholesterol 289 mg/dL (0-200); HDL Direct 72 mg/dL; Triglycerides 178 mg/dL (<150)
[2024-07-17 12:47] LABS: LDL Cholesterol Direct 169 mg/dL
[2024-07-17 12:51] LABS: Vitamin D 25 Hydroxy 20.4 ng/mL
--- OUTSIDE RECORDS SUMMARY | 2024-07-17 13:09 | XMS_ITS | Clinical Summary ---
Author Organization [facility] Address [facility] [place] [address] Care Team Providers Care Engineering Technology Instructor Name Role Phone Gus Espinosa MD Unavailable [phone] Greg Atkins MD Unavailable [phone] Maricruz Bergman NP Unavailable [phone] Alexandrea Kelly MD Primary Care Provider [phone] Ashwin Paulino MD Unavailable [phone] Allergies Active Allergy Reactions Criticality Noted Date Comments Atorvastatin Myalgias High 05/02/2019 Medications donepezil (ARICEPT) 5 MG TabIndications:MC I (mild cognitive impairment) Take 1 tablet (5 mg total) by mouth nightly at bedtime. 30 tablet 11 11/01/19 24 Active clotrimazole (LOTRIMIN) 1 % creamIndications: Candidal intertrigo Apply topically 2 (two) times daily. 28 g 2 05/03/19 25 Active ezetimibe (ZETIA) 10 MG tabletIndications :Mixed hyperlipidemia Take 1 tablet (10 mg total) by mouth daily. 90 tablet 3 05/03/19 25 Active gemfibrozil (LOPID) 600 MG tabletIndications :Mixed hyperlipidemia Take 1 tablet (600 mg total) by mouth daily. 90 tablet 3 05/03/19 25 Active escitalopram (LEXAPRO) 10 MG tabletIndications :Situational anxiety TAKE 1/2 TABLET(5 MG) BY MOUTH EVERY NIGHT AT BEDTIME 45 tablet 2 07/03/19 25 Active escitalopram (LEXAPRO) 10 MG tabletIndications :Situational anxiety TAKE 1/2 TABLET(5 MG) BY MOUTH EVERY NIGHT AT BEDTIME 45 tablet 03/28/19 025 Discontinued Active Problems Problem Noted Date Diagnosed Date [...] hand surgeon to discuss, will refer to [facility] given it is closer to pt's house [...] without behavioral disturbance 12/16/2022 Uncomplicated alcohol dependence (CMS/HCC HHS/HC C) 08/17/2022 Overview (05/10/2024): - pt [...] Encounters Date Type Department Care Team Description 07/04/2024 Scan HEALTH INFO SRVCS Scanned, Doc Med [facility] 05/18/2024 Telephone [place] [id number] [place] [address] Alexandrea Kelly MD Record Request (Melvi requesting records of pt last visit with pcp, records faxed per request) 05/03/2024 1:00 PM WOUND CARE COORDINATOR Office Visit [facility] [address] [place] [address] Alexandrea Kelly MD Establish Care (11/01/2023 palma avery); Fall (X 1 month ago while getting into car injured rt hand) 05/03/2024 Telephone [facility] Medical [facility] Family Medicine [address] [address] Alexandrea Kelly MD Altered Mental Status 05/03/2024 Travel from Last 3 Months Immunizations Immunization Administration Dates Next Due Influenza Adult (Generic) [...] Sex Assigned at Female 05/03/2024 12:48 PM WOUND CARE COORDINATOR Legal Sex Female 5:07 PM CDT Gender Identity Female 04/06/2021 3:36 PM WOUND CARE COORDINATOR Sexual Orientation Not on file Last Filed Vital Signs Vital Sign Reading Time Taken Comments Blood Pressure 115/74 05/03/2024 1:03 PM WOUND CARE COORDINATOR Pulse 82 05/03/2024 1:03 PM WOUND CARE COORDINATOR Temperature 36.9 C (98.5 F) 05/03/2024 1:03 PM WOUND CARE COORDINATOR Respiratory Rate 12 05/03/2024 1:03 PM WOUND CARE COORDINATOR Oxygen Saturation 95% 05/03/2024 1:03 PM WOUND CARE COORDINATOR Inhaled Oxygen Concentration - - Weight 91.5 kg (201 lb 12.8 oz) 05/03/2024 1:03 PM WOUND CARE COORDINATOR Height 162.6 cm (5' 4 ) 05/03/2024 1:03 PM WOUND CARE COORDINATOR Body Mass Index 34.64 05/03/2024 1:03 PM WOUND CARE COORDINATOR Plan of Treatment Upcoming Encounters Date Type Department Care Team (Late st Contact Info) Description 10/16/2024 1:20 PM CDT Office Visit [facility] [address] [facility], [address] [place] [address] Greg Atkins MD [address] [place] [address] 10/31/2024 9:40 AM CDT Office Visit [address] [address] Alexandrea Kelly MD [address] [place] [address] 02/28/2025 10:00 AM WOUND CARE COORDINATOR Office Visit [address] [address] Alexandrea Kelly MD [facility] [place] [address] Health Maintenance Due Date Last Done Comments Mammogram Screening 11/27/2023 11/26/2022, 05/21/2021 COVID-19 Vaccine (3 - 2023-2 5 season) 2025 06/04/2020, 05/07/2020 Postponed from 11/20/2023 (Patient Refused) RSV Immunization or 60+ Years [...] 12/22/2021 Hepatitis C Completed 02/27/2019 Pneumococcal Vaccine: 50+ Years Completed 08/17/2022, 02/19/2020 Dexa Scan (General) Completed 11/26/2022 PHQ-2 (Physician [place]) Completed 05/03/2024 Meningococcal B Vaccine Aged Out No l onger eligible based on patient's age to complete this topic Meningococcal Vaccine Aged Out No rocky asuncion eligible based on patient's age to complete this topic RSV Immunizations Under 20 Months Aged Out No longer eligible b ased on patient's age to complete this topic Procedures Procedure Name Priority Date/Time Associated Diagnosis Comments BONE DENSITY GENERIC (SCAN ORDER) 11/26/2022 MAMMOGRAM GENERIC (SCAN ORDER) 11/26/2022 HEPATITIS C ANTIBODY Routine 02/27/2019 10:24 AM WOUND CARE COORDINATOR Need for hepatitis C screening test COLONOSCOPY GENERIC (SCAN ORDER) Routine 05/05/2015 12:00 AM WOUND CARE COORDINATOR from Last 3 Months or Most Recently Relevant to Health Maintenance Results * BONE DENSITY GENERIC (11/26/2022) Anatomical Region Laterality Modality Other 11/26/2022 [facility] Scanned SCANNING Final Resu lt * MAMMOGRAM GENERIC (11/26/2022) Anatomical Region Laterality Modality Other 11/26/2022 [facility] Scanned SCANNING Final Resu lt * HEPATITIS C ANTIBODY (02/27/2019 10:24 AM WOUND CARE COORDINATOR) HEPATITIS C AB NON-REACT BEBETO NON-REACT BEBETO [facility] SIGNAL TO CUTOFF 0.01 <1.00 [facility] Comment: HCV antibody was non-reactive. There is no laboratory evidence of HCV infection. In most cases, no further action is required. However, if recent HCV exposure is suspected, a test for HCV RNA (test code 12617) is suggested. For additional information please refer to http://education.Geno/faq/BQP69x9 (This link is being provided for informational/ educational purposes only.) 02/27/2019 10:2 4 AM WOUND CARE COORDINATOR 02/28/2019 7:02 AM WOUND CARE COORDINATOR Narrative Resulting Agency Comment Performing Organization Information: Site ID: [place] Name: [facility] Address: [address] [facility] [place] [address] Director: Bertram Thorne D.O., MPH us [facility] Final Resul t Performing Organization Address City/State/[facility] Co de Phone Number [facility] * COLONOSCOPY (05/05/2015 12:00 AM WOUND CARE COORDINATOR) 05/05/2015 us Documents Scanned SCANNING Final Result [facility] from Last 3 Months or Most Recently Relevant to Health Maintenance Insurance [facility] Care Teams Engineering Technology Instructor Relationship Specialty Start Date End Date Alexandrea Kelly MD [address] [place] [address] PCP - General FAMILY PRACTICE 02/22/24 Gus Espinosa MD [address] [place] [id number] GASTROENTEROLOGY 02/27/19 Greg Atkins MD [address] [place] [address] Physician NEUROMUSCULOSKELETAL MEDICINE 08/17/22 Maricruz Bergman NP [address] [place] [address] Nurse Practitioner NEUROLOGY 02/17/23 Ashwin Paulino MD [address] [place] [address] SURGERY 02/23/24
--- OUTSIDE RECORDS SUMMARY | 2024-07-17 13:09 | XMS_ITS | Clinical Summary ---
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
--- OUTSIDE RECORDS SUMMARY | 2024-07-17 13:09 | XMS_ITS | Referral Summary ---
Author Organization [address] Address [facility] [place] [address] Care Team Providers Care Grade Recorder Name Role Phone Alen Ortega MD Primary Care Provider [phone] Allergies No known active allergies Medications lisinopriL [...] on file Legal Sex Female 1:58 AM ONLINE CONTENT COORDINATOR Gender Identity Not on file Sexual Orientation [...] Plan of Treatment Not on file Insurance [facility] MDCR HMO REF [facility] MDCR HMO REF Care Teams Grade Recorder Relationship Specialty Start Date End Date Alen Ortega MD PCP - General Family Practice 03/19/20
[2024-07-18 12:49] LABS: Alanine Aminotransferase 66 U/L (6-35); Albumin Level 4.5 g/dL (3.5-5.1); Alkaline Phosphatase 127 U/L (38-126); Anion Gap 10 mmol/L (4-12); Aspartate Amino Transferase 52 U/L (14-36); Bilirubin,Total 0.6 mg/dL (0.2-1.3); Blood Urea Nitrogen 8 mg/dL (7-17); Calcium 9.3 mg/dL (8.4-10.2); Carbon Dioxide 25 mmol/L (22-30); Chloride 105 mmol/L (98-107); Estimated Glomerular Filt Rate > 60; Glucose 106 mg/dL (65-110); Potassium 4.3 mmol/L (3.4-5.0); Sodium 140 mmol/L (137-145)
== END 2024-07-17 11:54 | disposition home or self-care (01) ==
PROVIDERS: PCP Nurse Practitioner Family; Visit Provider Nurse Practitioner Family
DX: F10.10 Alcohol abuse, uncomplicated (principal); K76.0 Fatty (change of) liver, not elsewhere classified; I10 Essential (primary) hypertension; Z76.89 Persons encountering health services in other specified circumstances; Z79.899 Other long term (current) drug therapy
CPT/HCPCS: 36415; 80053; 80061; 82306; 83036; 84443; 85025

== ENCOUNTER 2024-08-06 13:15 | Outpatient (RCR) | payer MEDICARE, SELFPAY ==
--- NOTE | 2024-05-25 14:18 | OTOPEVAL1 ---
Assessment and note entered by Latosha Danielson OT Evaluation Information Assessment Status Evaluation Diagnosis stiffness of hand ICD-10 Condition Codes (OT) Joint stiffness of left hand M25.642,Pain in left hand M79.642,Generalized muscle weakness M62.81 Subjective Information Pt. reports she initially had a fall while walking out of store and slipping and slipping onto hand. Pt. reports no fx. but increased stiffness and decreased ROM since injury resulting in difficulty using L hand driving, putting on seatbelt, cooking, dressing, pushing up to standing from seated, getting out of jacuzzi bathtub. Pt. is right hand dominant and states she has either been compensating with use of R hand or assistance from spouse. Reported Pain Level Pain Score 3: Self Report Assessment OT Clinical Summary Pt. is 68 year old F, presenting for L hand stiffness with pain and swelling after reported fall 04/14/24. Pt. demonstrates decreased ROM and strength in L 3rd-5th fingers, as well as pain with use, limiting functional use and requiring compensation and use of R hand or increased assist from spouse to complete activities. Pt. will benefit from skilled OT services including ROM and strengthening exercises and use of therapeutic modalities for increased strength, ROM, and decreased pain for return of function and independence. Plan of Care Interventions Therapeutic Exercise,Manual Therapy,Therapeutic Activities,Hot Pack/Cold Pack,Self-Care/Home Management,Ultrasound,Paraffin OT Services Indicated Yes Treatment Frequency and 1x per week for 5 weeks Duration These treatments will address the objective and functional deficits as defined above. The patient will be advanced safely and appropriately in order for the patient to progress towards his/her prior level of function. Additional exercises will be introduced and as well as a comprehensive home exercise program upon discharge, if needed, ?to ensure carryover of functional gains achieved in the clinic. This treatment plan has been reviewed and agreement upon by the patient.
--- NOTE | 2024-05-29 15:46 | OPREHPOC ---
Outpatient Therapy Plan of Care This is a Multidisciplinary Plan of Care that may contain components documented by all disciplines (PT, OT, and ST.) OT Problem 1 OT Problem #1 Knowledge Deficit OT Goal 1 Goal / Goal Update Pt. will demonstrate independence in active ROM and strengthening HEP Target Visit 5 OT Problem 2 OT Problem #2 Pain OT Goal 1 Goal / Goal Update Pt. will report maximum pain level 2/10 with activity Target Visit 5 OT Problem 3 OT Problem #3 Impaired Range of Motion OT Goal 1 Goal / Goal Update Pt. will demonstrate increased flexion in finger joints by 20 degrees for increased functional use Target Visit 5 OT Problem 4 OT Problem #4 Impaired Strength OT Goal 1 Goal / Goal Update Pt. will increase overall animated cartoons painter strength by 15 lbs Target Visit 5
--- NOTE | 2024-06-27 10:27 | OTOPPROG ---
Assessment and note entered by Latosha Danielson, OT Evaluation Information Assessment Status Progress Diagnosis stiffness of hand ICD-10 Condition Codes (OT) Joint stiffness of left hand M25.642,Pain in left hand M79.642,Generalized muscle weakness M62.81 Subjective Information Pt. reports she still has occasional pain in hand, often when pushing down through hand, pushing fingers into extension. Pt. states she also often has pain when holding items such as a glass for a prolonged period, and she is unable to cut meat while using L hand to hold and manage knife. Pt. states she is has been diligent in her exercises, often doing them when sitting down in the chair she often sits in. Assessment OT Clinical Summary Pt. is 68 year old F, presenting for 6th visit with L hand stiffness with pain and swelling after reported fall 04/14/24. Pt. demonstrates increased ROM in most joints with the exception of her middle and ring finger MCP joints, with decreasing space between tip of fingers and meraz crease. Pt. reports less consistent pain with functional activity. Pt. demonstrates decreased strength in L hand overall, with increase in R hand strength, as pt. continues to compensate with R hand. Pt. will continue to benefit from skilled OT services including ROM and strengthening exercises and use of therapeutic modalities for increased strength, ROM, and decreased pain for return of function and independence. Plan of Care Interventions Therapeutic Exercise,Manual Therapy,Therapeutic Activities,Hot Pack/Cold Pack,Self-Care/Home Management,Ultrasound,Paraffin OT Services Indicated Yes Treatment Frequency and 1x per week for 5 weeks Duration These treatments will address the objective and functional deficits as defined above. The patient will be advanced safely and appropriately in order for the patient to progress towards his/her prior level of function. Additional exercises will be introduced and as well as a comprehensive home exercise program upon discharge, if needed, ?to ensure carryover of functional gains achieved in the clinic. This treatment plan has been reviewed and agreement upon by the patient.
--- NOTE | 2024-06-27 10:28 | OPREHPOC ---
Outpatient Therapy Plan of Care This is a Multidisciplinary Plan of Care that may contain components documented by all disciplines (PT, OT, and ST.) OT Problem 1 OT Problem #1 Knowledge Deficit OT Goal 1 Goal / Goal Update Pt. will demonstrate independence in active ROM and strengthening HEP Target Visit 5 Progress Partially Met OT Goal 2 Goal / Goal Update 06/27/24 Progress note: Continue with goal with increased resistance putty , pt. continues to demonstrate difficulty with understanding form and technique for exercises Target Visit 10 OT Problem 2 OT Problem #2 Pain OT Goal 1 Goal / Goal Update Pt. will report maximum pain level 2/10 with activity Target Visit 5 OT Goal 2 Goal / Goal Update 06/27/24 Progress note: Continue with goal, pt. reports 2/10 at rest, while displaying increased pain with activity Target Visit 10 OT Problem 3 OT Problem #3 Impaired Range of Motion OT Goal 1 Goal / Goal Update Pt. will demonstrate increased flexion in finger joints by 20 degrees for increased functional use Target Visit 5 Progress Partially Met OT Goal 2 Goal / Goal Update 06/27/24 Progress note: Continue with goal, pt. demonstrates increased flexion in finger joints with the exception of her middle and ring MCP joints Target Visit 10 OT Problem 4 OT Problem #4 Impaired Strength OT Goal 1 Goal / Goal Update Pt. will increase overall miller apprentice strength by 15 lbs Target Visit 5
--- NOTE | 2024-07-23 16:12 | OTOPPROG ---
Assessment and note entered by Latosha Danielson OT Progress Note Information Assessment Status Progress Diagnosis stiffness of hand ICD-10 Condition Codes (OT) Joint stiffness of left hand M25.642,Pain in left hand M79.642,Generalized muscle weakness M62.81 Subjective Information Pt. reports she has no pain in hand, just stiffness. Pt. is in agreement that she has increased functional use of hand, but has adjusted to primarily using R dominant hand for tasks which are difficult with L hand, due to initially experience of pain after injury, and pain with frequent use. Pt. states she also continues to have trouble holding a glass with her L hand, and continues to have pain when holding items such as a glass for a prolonged period, and she is unable to cut meat while using L hand to hold and manage knife. Pt. states she is has been diligent in her exercises, often doing them when sitting down in the chair she often sits in. Assessment OT Clinical Summary Pt. is 68 year old F, presenting for 10th visit with L hand stiffness with pain and swelling after reported fall 04/14/24. Pt. demonstrates increased ROM in 3rd and 4th fingers and decreased ROM in PIP and DIP of 5th finger since last progress note with pain with passive ROM. Pt. displays overall increased gas flow regulator strength from progress note. Pt. reports no consistent pain with functional activity. Pt. continues to compensate with R hand. Pt. will continue to benefit from skilled OT services including ROM and strengthening exercises and use of therapeutic modalities for increased strength, ROM, and decreased pain for return of function and independence. OTR/L, CHT Nishant Priest present for building dynamic hand splint. Plan of Care Interventions Therapeutic Exercise,Manual Therapy,Therapeutic Activities,Hot Pack/Cold Pack,Self-Care/Home Management,Ultrasound,Paraffin OT Services Indicated Yes Treatment Frequency and 1x per week for 5 weeks Duration These treatments will address the objective and functional deficits as defined above. The patient will be advanced safely and appropriately in order for the patient to progress towards his/her prior level of function. Additional exercises will be introduced and as well as a comprehensive home exercise program upon discharge, if needed, ?to ensure carryover of functional gains achieved in the clinic. This treatment plan has been reviewed and agreement upon by the patient.
--- NOTE | 2024-07-23 16:13 | OTOPPROG ---
Assessment and note entered by Latosha Danielson, OT Evaluation Information Assessment Status Progress Diagnosis stiffness of hand ICD-10 Condition Codes (OT) Joint stiffness of left hand M25.642,Pain in left hand M79.642,Generalized muscle weakness M62.81 Subjective Information Pt. reports she has no pain in hand, just stiffness. Pt. is in agreement that she has increased functional use of hand, but has adjusted to primarily using R dominant hand for tasks which are difficult with L hand, due to initially experience of pain after injury, and pain with frequent use. Pt. states she also continues to have trouble holding a glass with her L hand, and h has pain when holding items such as a glass for a prolonged period, and she is unable to cut meat while using L hand to hold and manage knife. Pt. states she is has been diligent in her exercises, often doing them when sitting down in the chair she often sits in. Assessment OT Clinical Summary Pt. is 68 year old F, presenting for 10th visit with L hand stiffness with pain and swelling after reported fall 04/14/24. Pt. demonstrates increased ROM in 3rd and 4th fingers and decreased ROM in PIP and DIP of 5th finger since last progress note with pain with passive ROM. Pt. displays overall increased spool salvager strength from progress note. Pt. reports no consistent pain with functional activity. Pt. continues to compensate with R hand. Pt. will continue to benefit from skilled OT services including ROM and strengthening exercises and use of therapeutic modalities for increased strength, ROM, and decreased pain for return of function and independence. OTR/L, CHT Nishant Priest present for building dynamic hand splint. Plan of Care Interventions Therapeutic Exercise,Manual Therapy,Therapeutic Activities,Hot Pack/Cold Pack,Self-Care/Home Management,Ultrasound,Paraffin OT Services Indicated Yes Treatment Frequency and 1x per week for 5 weeks Duration These treatments will address the objective and functional deficits as defined above. The patient will be advanced safely and appropriately in order for the patient to progress towards his/her prior level of function. Additional exercises will be introduced and as well as a comprehensive home exercise program upon discharge, if needed, ?to ensure carryover of functional gains achieved in the clinic. This treatment plan has been reviewed and agreement upon by the patient.
--- NOTE | 2024-07-23 16:15 | OPREHPOC ---
Outpatient Therapy Plan of Care This is a Multidisciplinary Plan of Care that may contain components documented by all disciplines (PT, OT, and ST.) OT Problem 1 OT Problem #1 Knowledge Deficit OT Goal 1 Goal / Goal Update Pt. will demonstrate independence in active ROM and strengthening HEP 06/27/24 Progress note: Continue with goal with increased resistance putty , pt. continues to demonstrate difficulty with understanding form and technique for exercises 07/23 Progress Not met, continue Target Visit 16 Progress Partially Met OT Goal 2 Target Visit 10 OT Problem 2 OT Problem #2 Pain OT Goal 1 Goal / Goal Update Pt. will report maximum pain level 2/10 with activity 06/27/24 Progress note: 1) Continue with goal, pt. reports 2/10 at rest, while displaying increased pain with activity 07/23 Progress Note 1) Goal met, new goal 2) Pt. will report maximum pain level 2/10 with passive ROM Target Visit 16 Progress Not Met OT Problem 3 OT Problem #3 Impaired Range of Motion OT Goal 1 Goal / Goal Update 1) Pt. will demonstrate increased flexion in finger joints by 20 degrees for increased functional use 06/27/24 Progress note: 1) Continue with goal, pt. demonstrates increased flexion in finger joints with the exception of her middle and ring MCP joints 07/23 Progress note 1) Continue with goal Target Visit 16 Progress Partially Met OT Goal 2 Target Visit 10 OT Problem 4 OT Problem #4 Impaired Strength OT Goal 1 Goal / Goal Update Pt. will increase overall animal husbandman strength by 15 lbs --------- 06/27/24 Progress note 1) Continue with goal, pt. L hand animal husbandman strength decreased since initial evaluation 07/23 Progress note 1) Goal not met, continue Target Visit 20 Progress Not Met
--- NOTE | 2024-11-12 16:05 | PCOTNOTE ---
Pt. reffered to OP therapy for injury to L hand. Pt. seen for 12 treatments from initial evaluation 05/25/24- 08/06/24. Pt. did not return for additional treatments, and will be discharged from services on this date.
== END 2024-08-23 23:59 | disposition home or self-care (01) ==
LOC: ANHOT 13:15
PROVIDERS: PCP Plastic Surgery; Visit Provider Plastic Surgery
DX: M25.642 Stiffness of left hand, not elsewhere classified (principal); M79.642 Pain in left hand; M62.81 Muscle weakness (generalized)
CPT/HCPCS: 97018; 97110; 97140; 97165; 97530; 97760; L3906